=== PATIENT | male | born 2005 | race Caucasian/White ===

== ENCOUNTER 2024-02-07 13:53 | Emergency (ER) | payer OTHER ==
[2024-02-07] MEDS ORDERED: AMOXIC-POT CLAV 875-125MG 1 EACH TAB ONE ×2 (15:15→15:52)
[2024-02-07] MEDS ORDERED: predniSONE 20 MG TAB ONE (15:16)
[2024-02-07] MEDS ORDERED: ACETAMINOPHEN TAB 500 MG TAB ONE (15:52)
[2024-02-07] MEDS ORDERED: IBUPROFEN 600 MG TAB PO ONE (15:53)
== END 2024-02-07 15:58 | disposition home or self-care (01) ==
LOC: EC 13:53
CPT/HCPCS: 99282

== ENCOUNTER 2024-03-12 11:53 | Inpatient (IN) | payer OTHER ==
--- NOTE | 2024-03-12 12:41 | ED ---
General Adult HPI - General Chief complaint: Upper Respiratory Infection Stated complaint: cough,dizziness Time Seen by Provider: 03/12/24 11:57 Source: patient Mode of arrival: ambulatory Limitations: no limitations - History of Present Illness Initial comments: 18 [id number] presents to emergency department with complaint of fever, myalgia and productive cough. Reports that cough started 4 days ago and sputum is green in color, sick contact, diarrhea, and nausea. Denies shortness of breath, chest pain and palpitations, abdominal pain, and emesis. - Related Data Allergies Allergy/AdvReac Type Severity Reaction Status Date / Time No Known Allergies Allergy Verified 03/12/24 11:56 Review of Systems ROS Statement: Those systems with pertinent positive or pertinent negative responses have been documented in the HPI. ROS Other: All systems not noted in ROS Statement are negative. Past Medical History Past Medical History: No Reported History History of Any Multi-Drug Resistant Organisms: None Reported Past Surgical History: No Surgical Hx Reported Smoking Status: Current some day smoker Past Alcohol Use History: Occasional Past Drug Use History: None Reported General Exam Limitations: no limitations General appearance: alert, in no apparent distress Head exam: Present: atraumatic, normocephalic, normal inspection Eye exam: Present: normal appearance, PERRL, EOMI. Absent: scleral icterus, conjunctival injection, periorbital swelling ENT exam: Present: normal exam, mucous membranes moist Neck exam: Present: normal inspection. Absent: tenderness, meningismus, lymphadenopathy Respiratory exam: Present: normal lung sounds bilaterally. Absent: respiratory distress, rales, rhonchi, stridor Expanded Location: Wheezes: Left, Upper Cardiovascular Exam: Present: regular rate, normal rhythm, normal heart sounds. Absent: systolic murmur, diastolic murmur, rubs, gallop, clicks GI/Abdominal exam: Present: soft, normal bowel sounds. Absent: distended, tenderness, guarding, rebound, rigid Extremities exam: Present: normal inspection, full ROM, normal capillary refill. Absent: tenderness, pedal edema, joint swelling, calf tenderness Back exam: Present: normal inspection Neurological exam: Present: alert, oriented X3, CN II-XII intact Psychiatric exam: Present: normal affect, normal mood Skin exam: Present: warm, dry, intact, normal color. Absent: rash Course Vital Signs 03/12/24 03/12/24 03/12/24 11:54 12:16 14:09 Temperature 98.8 F Pulse Rate 95 84 Respiratory 20 16 Rate Blood Pressure 91/61 O2 Sat by Pulse 97 Oximetry 03/12/24 03/12/24 14:18 14:34 Temperature 98.2 F Pulse Rate 88 103 H Respiratory 18 Rate Blood Pressure 121/77 O2 Sat by Pulse 97 Oximetry Medical Decision Making - Medical Decision Making Was pt. sent in by a medical professional or institution (NARDA Abrams, PAPER MAKER, urgent care, hospital, or retirement...) When possible be specific @ -No Did you speak to anyone other than the patient for history (EMS, parent, family, police, friend...)? What history was obtained from this source @ -No Did you review nursing and triage notes (agree or disagree)? Why? @ -I reviewed and agree with nursing and triage notes Were old charts reviewed (outside hosp., previous admission, EMS record, old EKG, old radiological studies, urgent care reports/EKG's, retirement records)? Report findings @ -No old charts were reviewed Differential Diagnosis (chest pain, altered mental status, abdominal pain women, abdominal pain men, vaginal bleeding, weakness, fever, dyspnea, syncope, headache, dizziness, GI bleed, back pain, seizure, CVA, palpatations, mental health, musculoskeletal)? @ -COVID 19, RSV, influenza, pneumonia, acute bronchitis, URI, this list is not all inclusive EKG interpreted by me (3pts min.). @ -None X-rays interpreted by me (1pt min.). @ -Chest x-ray shows diffuse multifocal pneumonia in the left CT interpreted by me (1pt min.). @ -None done U/S interpreted by me (1pt. min.). @ -None done What testing was considered but not performed or refused? (CT, X-rays, U/S, labs)? Why? @ -None What meds were considered but not given or refused? Why? @ -None Did you discuss the management of the patient with other professionals (professionals i.e. NARDA Abrams, PAPER MAKER, lab, RT, psych nurse, social welfare clerk, director embalmer, teacher, intelligence officer, case management manager)? Give summary @ -[facility] for admission Was smoking cessation discussed for >3mins.? @ -No Was critical care preformed (if so, how long)? @ -No Were there social determinants of health that impacted care today? How? (H omelessness, low income, unemployed, alcoholism, drug addiction, transportation, low edu. Level, literacy, decrease access to med. care, senior care, rehab)? @ -No Was there de-escalation of care discussed even if they declined (Discuss DNR or withdrawal of care, Hospice)? DNR status @ -No What co-morbidities impacted this encounter? (DM, HTN, Smoking, COPD, CAD, Cancer, CVA, ARF, Chemo, Hep., AIDS, mental health diagnosis, sleep apnea, morbid obesity)? @ -None Was patient admitted / discharged? Hospital course, mention meds given and route, prescriptions, significant lab abnormalities, going to OR and other pertinent info. @ -Admit the patient is running out of diffuse pneumonic changes of the left lung with notable hyponatremia patient will be started on maintenance fluids, pulmonary evaluation, antibiotics IV Undiagnosed new problem with uncertain prognosis? @ -No Drug Therapy requiring intensive monitoring for toxicity (Heparin, Nitro, Insulin, Cardizem)? @ -No Were any procedures done? @ -No Diagnosis/symptom? @ -Pneumonia, hyponatremia Acute, or Chronic, or Acute on Chronic? @ -Acute Uncomplicated (without systemic symptoms) or Complicated (systemic symptoms)? @ -Complicated Side effects of treatment? @ -No Exacerbation, Progression, or Severe Exacerbation? @ -No Poses a threat to life or bodily function? How? (Chest pain, [place], [place], pneumonia, PE, COPD, DKA, ARF, appy, cholecystitis, CVA, Diverticulitis, Homicidal, Suicidal, threat to staff... and all critical care pts) @ -Yes respiratory failure - Lab Data Result diagrams: 03/12/24 14:08 03/12/24 14:08 Lab Results 03/12/24 03/12/24 03/12/24 Range/Units 12:30 14:08 14:08 WBC 14.9 H (4.0-11.0) k/uL RBC 4.88 (4.30-5.90) m/uL Hgb 14.3 (13.0-17.5) gm/dL Hct 41.1 (39.0-53.0) % MCV 84.1 (80.0-100.0) fL MCH 29.3 (25.0-35.0) pg MCHC 34.9 (31.0-37.0) g/dL RDW 12.7 (11.5-15.5) % Plt Count 245 (150-450) k/uL MPV 8.3 Neutrophils % 86 % Lymphocytes % 7 % Monocytes % 5 % Eosinophils % 1 % Basophils % 0 % Neutrophils # 12.8 H (1.3-7.7) k/uL Lymphocytes # 1.0 (1.0-4.8) k/uL Monocytes # 0.8 (0-1.0) k/uL Eosinophils # 0.1 (0-0.7) k/uL Basophils # 0.0 (0-0.2) k/uL Sodium 127 L (137-145) mmol/L Potassium 4.0 (3.5-5.1) mmol/L Chloride 94 L (98-107) mmol/L Carbon Dioxide 25 (22-30) mmol/L Anion Gap 8 mmol/L BUN 15 (9-20) mg/dL Creatinine 0.64 L (0.66-1.25) mg/dL Est GFR (CKD-EPI)AfAm >90 (>60 ml/min/1.73 sqM) Est GFR (CKD-EPI)NonAf >90 (>60 ml/min/1.73 sqM) Glucose 107 H (74-99) mg/dL Plasma Lactic Acid Benjy (0.7-2.0) mmol/L Calcium 8.3 L (8.4-10.2) mg/dL Total Bilirubin 1.0 (0.2-1.3) mg/dL AST 53 (17-59) U/L ALT 25 (4-49) U/L Alkaline Phosphatase 72 (38-126) U/L Total Protein 6.1 L (6.3-8.2) g/dL Albumin 3.2 L (3.5-5.0) g/dL Influenza Type A (PCR) Not Detected (Not Detectd) Influenza Type B (PCR) Not Detected (Not Detectd) RSV (PCR) Not Detected (Not Detectd) SARS-CoV-2 (PCR) Not Detected (Not Detectd) 03/12/24 Range/Units 14:08 WBC (4.0-11.0) k/uL RBC (4.30-5.90) m/uL Hgb (13.0-17.5) gm/dL Hct (39.0-53.0) % MCV (80.0-100.0) fL MCH (25.0-35.0) pg MCHC (31.0-37.0) g/dL RDW (11.5-15.5) % Plt Count (150-450) k/uL MPV Neutrophils % % Lymphocytes % % Monocytes % % Eosinophils % % Basophils % % Neutrophils # (1.3-7.7) k/uL Lymphocytes # (1.0-4.8) k/uL Monocytes # (0-1.0) k/uL Eosinophils # (0-0.7) k/uL Basophils # (0-0.2) k/uL Sodium (137-145) mmol/L Potassium (3.5-5.1) mmol/L Chloride (98-107) mmol/L Carbon Dioxide (22-30) mmol/L Anion Gap mmol/L BUN (9-20) mg/dL Creatinine (0.66-1.25) mg/dL Est GFR (CKD-EPI)AfAm (>60 ml/min/1.73 sqM) Est GFR (CKD-EPI)NonAf (>60 ml/min/1.73 sqM) Glucose (74-99) mg/dL Plasma Lactic Acid Benjy 1.0 (0.7-2.0) mmol/L Calcium (8.4-10.2) mg/dL Total Bilirubin (0.2-1.3) mg/dL AST (17-59) U/L ALT (4-49) U/L Alkaline Phosphatase (38-126) U/L Total Protein (6.3-8.2) g/dL Albumin (3.5-5.0) g/dL Influenza Type A (PCR) (Not Detectd) Influenza Type B (PCR) (Not Detectd) RSV (PCR) (Not Detectd) SARS-CoV-2 (PCR) (Not Detectd) Disposition Clinical Impression: Multifocal pneumonia, Hyponatremia Disposition: ADMITTED IP TO THIS HOSP Condition: Fair Is patient prescribed a controlled substance at d/c from ED?: No Referrals: None,Stated [Primary Care Provider] - 1-2 days Time of Disposition: 15:08
--- NOTE | 2024-03-12 13:49 | XR ---
EXAMINATION TYPE: XR chest 2V DATE OF EXAM: 03/12/2024 COMPARISON: NONE HISTORY: Shortness of breath TECHNIQUE: Frontal and lateral views of the chest are obtained. FINDINGS: Airspace consolidation left upper lobe and left lower lobe compatible with pneumonia. The right lung appears clear at this time. No evidence for pneumothorax. No pleural effusion. The cardiac silhouette size is within normal limits. The osseous structures are grossly intact. IMPRESSION: 1. Airspace consolidation left upper lobe and left lower lobe compatible with pneumonia. The right l varinder appears clear at this time.
[2024-03-12] MEDS: IPRATROPIUM-ALBUTEROL 3 ML NEB INHALATION STA (14:09)
[2024-03-12] MEDS: SODIUM CHLORIDE 0.9% 1,000 ML IV ONE (14:17)
[2024-03-12 14:32] LABS: Basophils % (A) 0 %; Eosinophils # (A) 0.1 k/uL (0-0.7); Eosinophils % (A) 1 %; HCT 41.1 % (39.0-53.0); HGB 14.3 gm/dL (13.0-17.5); Lymphocytes % (A) 7 %; MCH 29.3 pg (25.0-35.0); MCHC 34.9 g/dL (31.0-37.0); MCV 84.1 fL (80.0-100.0); Mean Platelet Volume 8.3; Monocytes # (A) 0.8 k/uL (0-1.0); Monocytes % (A) 5 %; Neutrophils # (A) 12.8 k/uL (1.3-7.7); Neutrophils % (A) 86 %; Platelet Count 245 k/uL (150-450); RBC 4.88 m/uL (4.30-5.90); RDW 12.7 % (11.5-15.5); WBC 14.9 k/uL (4.0-11.0)
[2024-03-12 14:36] VITALS: BP 121/77; PULSE 103; RESP 18; TEMP 98.2
[2024-03-12 14:45] LABS: ALT 25 U/L (4-49); AST 53 U/L (17-59); African American GFR (CKD) >90 (>60 ml/min/1.73 sqM); Albumin 3.2 g/dL (3.5-5.0); Alkaline Phosphatase 72 U/L (38-126); Anion Gap 8 mmol/L; Blood Urea Nitrogen 15 mg/dL (9-20); Calcium 8.3 mg/dL (8.4-10.2); Carbon Dioxide 25 mmol/L (22-30); Chloride 94 mmol/L (98-107); Glucose 107 mg/dL (74-99); Non-African American GFR(CKD) >90 (>60 ml/min/1.73 sqM); Sodium 127 mmol/L (137-145); Total Protein 6.1 g/dL (6.3-8.2)
[2024-03-12] MEDS ORDERED: IPRATROPIUM-ALBUTEROL 3 ML NEB INHALATION PRN (15:09)
[2024-03-12] MEDS ORDERED: AZITHROMYCIN 500 MG in SODIUM CHLORIDE 0.9% 250 ML IVPB STA (15:09)
[2024-03-12] MEDS ORDERED: PNEUMONIA PROTOCOL UTILIZED 1 EACH MISC PO PRN (15:09)
[2024-03-12] MEDS ORDERED: SODIUM CHLORIDE 0.9% 1,000 ML IV SCH (15:15)
[2024-03-13] MEDS ORDERED: AZITHROMYCIN 500 MG in SODIUM CHLORIDE 0.9% 250 ML IVPB SCH (16:00)
== END 2024-03-12 15:50 | disposition left against medical advice (07) | DRG 139 ==
LOC: EC 11:53 → 4SSUR 15:38
PROVIDERS: ADMIT Internal Medicine; ATTEND Internal Medicine
DX: J18.9 Pneumonia, unspecified organism (principal); E87.1 Hypo-osmolality and hyponatremia; F17.210 Nicotine dependence, cigarettes, uncomplicated
CPT/HCPCS: 36415; 71046; 80053; 83605; 85025; 87040; 87636; 94640; 99285

== ENCOUNTER 2024-03-13 11:20 | Inpatient (IN) | payer OTHER ==
[2024-03-13 12:03] LABS: Basophils % (A) 0 %; Eosinophils # (A) 0.1 k/uL (0-0.7); Eosinophils % (A) 1 %; HCT 38.5 % (39.0-53.0); HGB 13.2 gm/dL (13.0-17.5); Lymphocytes % (A) 7 %; MCH 29.4 pg (25.0-35.0); MCHC 34.3 g/dL (31.0-37.0); MCV 85.7 fL (80.0-100.0); Monocytes # (A) 0.9 k/uL (0-1.0); Monocytes % (A) 7 %; Neutrophils # (A) 11.3 k/uL (1.3-7.7); Neutrophils % (A) 83 %; Platelet Count 301 k/uL (150-450); RBC 4.49 m/uL (4.30-5.90); RDW 12.7 % (11.5-15.5); WBC 13.6 k/uL (4.0-11.0)
[2024-03-13 12:13] LABS: ALT 25 U/L (4-49); AST 58 U/L (17-59); African American GFR (CKD) >90 (>60 ml/min/1.73 sqM); Albumin 3.1 g/dL (3.5-5.0); Alkaline Phosphatase 82 U/L (38-126); Anion Gap 11 mmol/L; Blood Urea Nitrogen 13 mg/dL (9-20); Calcium 8.1 mg/dL (8.4-10.2); Carbon Dioxide 24 mmol/L (22-30); Chloride 88 mmol/L (98-107); Glucose 102 mg/dL (74-99); Magnesium 2.2 mg/dL (1.6-2.3); Non-African American GFR(CKD) >90 (>60 ml/min/1.73 sqM); Sodium 123 mmol/L (137-145); Total Bilirubin 1.2 mg/dL (0.2-1.3); Total Protein 5.9 g/dL (6.3-8.2)
--- NOTE | 2024-03-13 12:18 | XR ---
EXAMINATION TYPE: XR chest 2V DATE OF EXAM: 03/13/2024 COMPARISON: 03/12/2024 HISTORY: Follow-up pneumonia TECHNIQUE: Frontal and lateral views of the chest are obtained. FINDINGS: Persistent left perihilar left lower lobe airspace infiltrate with small effusion. The right lung is clear. Overall stable appearance. No evidence for pneumothorax. No pleural effusion. The cardiac silhouette size is within normal limits. The osseous structures are grossly intact. IMPRESSION: 1. Persistent left perihilar and left lower lobe airspace infiltrate with small effusion. The right lung is clear. Overall stable appearance.
--- NOTE | 2024-03-13 12:35 | ED ---
General Adult HPI - General Chief complaint: Shortness of Breath Stated complaint: Recheck-STALIN Time Seen by Provider: 03/13/24 11:25 Source: patient, RN notes reviewed, old records reviewed Mode of arrival: ambulatory Limitations: no limitations - History of Present Illness Initial comments: 18 year old male returns to the ED today with complaints of worsening shortness of breath. Was seen yesterday in the ED with plans to admit for pneumonia when he left AMA. Today, he complains of worsening shortness of breath, fever, productive cough, malaise, and left lower rib cage pain. Denies chest pain, syncope, and headache. - Related Data Allergies Allergy/AdvReac Type Severity Reaction Status Date / Time No Known Allergies Allergy Verified 03/12/24 11:56 Review of Systems ROS Statement: Those systems with pertinent positive or pertinent negative responses have been documented in the HPI. ROS Other: All systems not noted in ROS Statement are negative. Past Medical History Past Medical History: No Reported History Additional Past Medical History / Comment(s): pneumonia History of Any Multi-Drug Resistant Organisms: None Reported Past Surgical History: No Surgical Hx Reported Smoking Status: Current some day smoker Past Alcohol Use History: Occasional Past Drug Use History: None Reported General Exam Limitations: no limitations General appearance: alert, in no apparent distress Head exam: Present: atraumatic, normocephalic, normal inspection Eye exam: Present: normal appearance, PERRL, EOMI. Absent: scleral icterus, conjunctival injection, periorbital swelling ENT exam: Present: normal exam, mucous membranes moist Neck exam: Present: normal inspection. Absent: tenderness, meningismus, lymphadenopathy Respiratory exam: Present: normal lung sounds bilaterally, wheezes, rhonchi. Absent: respiratory distress, rales, stridor Expanded Location: Wheezes: Left, Upper, Rhonchi: Left, Upper, Lower Cardiovascular Exam: Present: normal rhythm, tachycardia, normal heart sounds. Absent: systolic murmur, diastolic murmur, rubs, gallop, clicks GI/Abdominal exam: Present: soft, normal bowel sounds. Absent: distended, tenderness, guarding, rebound, rigid Extremities exam: Present: normal inspection, full ROM, normal capillary refill. Absent: tenderness, pedal edema, joint swelling, calf tenderness Back exam: Present: normal inspection Neurological exam: Present: alert, oriented X3, CN II-XII intact Psychiatric exam: Present: normal affect, normal mood Skin exam: Present: warm, dry, intact, normal color. Absent: rash Course Vital Signs 03/13/24 11:22 Temperature 99.8 F H Pulse Rate 120 H Respiratory 20 Rate Blood Pressure 114/70 O2 Sat by Pulse 94 L Oximetry Medical Decision Making - Medical Decision Making Was pt. sent in by a medical professional or institution (, NARDA, INSTRUCTOR BALLROOM DANCING, urgent care, hospital, or skilled nursing...) When possible be specific @ -No Did you speak to anyone other than the patient for history (EMS, parent, family, police, friend...)? What history was obtained from this source @ -No Did you review nursing and triage notes (agree or disagree)? Why? @ -I reviewed and agree with nursing and triage notes Were old charts reviewed (outside hosp., previous admission, EMS record, old EK G, old radiological studies, urgent care reports/EKG's, skilled nursing records)? Report findings @ -Reviewed CBC CMP chest x-ray from 03/12/2024 Differential Diagnosis (chest pain, altered mental status, abdominal pain women, abdominal pain men, vaginal bleeding, weakness, fever, dyspnea, syncope, hea dache, dizziness, GI bleed, back pain, seizure, CVA, palpatations, mental health, musculoskeletal)? @ -COVID 19, RSV, influenza, pneumonia, acute bronchitis, URI, this list is not all inclusive EKG interpreted by me (3pts min.). @ -None X-rays interpreted by me (1pt min.). @ -Chest x-ray shows diffuse pneumonia of the left lung CT interpreted by me (1pt min.). @ -None done U/S interpreted by me (1pt. min.). @ -None done What testing was considered but not performed or refused? (CT, X-rays, U/S, labs)? Why? @ -None What meds were considered but not given or refused? Why? @ -None Did you discuss the management of the patient with other professionals (professionals i.e. NARDA Abrams, INSTRUCTOR BALLROOM DANCING, lab, RT, psych nurse, nursing home social worker, hospitalist physician, teacher, botanical technical officer, residential case manager)? Give summary @ -Dr. Soto for admission Was smoking cessation discussed for >3mins.? @ -No Was critical care preformed (if so, how long)? @ -No Were there social determinants of health that impacted care today? How? (Homelessness, low income, unemployed, alcoholism, drug addiction, transportation, low edu. Level, literacy, decrease access to med. care, long term, rehab)? @ -No Was there de-escalation of care discussed even if they declined (Discuss DNR or withdrawal of care, Hospice)? DNR status @ -No What co-morbidities impacted this encounter? (DM, HTN, Smoking, COPD, CAD, Cancer, CVA, ARF, Chemo, Hep., AIDS, mental health diagnosis, sleep apnea, morbid obesity)? @ -Smoking history Was patient admitted / discharged? Hospital course, mention meds given and route, prescriptions, significant lab abnormalities, going to OR and other pertinent info. @ -Admitted patient's found to have significant pneumonia, hyponatremia patient was started on maintenance fluids, broad-spectrum antibiotics with consults to pulmonary. Undiagnosed new problem with uncertain prognosis? @ -No Drug Therapy requiring intensive monitoring for toxicity (Heparin, Nitro, Insulin, Cardizem)? @ -No Were any procedures done? @ -No Diagnosis/symptom? @ -Pneumonia, hyponatremia Acute, or Chronic, or Acute on Chronic? @ -Acute Uncomplicated (without systemic symptoms) or Complicated (systemic symptoms)? @ -Complicated Side effects of treatment? @ -No Exacerbation, Progression, or Severe Exacerbation? @ -No Poses a threat to life or bodily function? How? (Chest pain, [place], [place], pneumonia, PE, COPD, DKA, ARF, appy, cholecystitis, CVA, Diverticulitis, Homicidal, Suicidal, threat to staff... and all critical care pts) @ -Yes pneumonia with respiratory failure - Lab Data Result diagrams: 03/13/24 11:50 03/13/24 11:50 Lab Results 03/13/24 03/13/24 03/13/24 Range/Units 11:50 11:50 11:50 WBC 13.6 H (4.0-11.0) k/uL RBC 4.49 (4.30-5.90) m/uL Hgb 13.2 (13.0-17.5) gm/dL Hct 38.5 L (39.0-53.0) % MCV 85.7 (80.0-100.0) fL MCH 29.4 (25.0-35.0) pg MCHC 34.3 (31.0-37.0) g/dL RDW 12.7 (11.5-15.5) % Plt Count 301 (150-450) k/uL MPV 7.0 Neutrophils % 83 % Lymphocytes % 7 % Monocytes % 7 % Eosinophils % 1 % Basophils % 0 % Neutrophils # 11.3 H (1.3-7.7) k/uL Lymphocytes # 1.0 (1.0-4.8) k/uL Monocytes # 0.9 (0-1.0) k/uL Eosinophils # 0.1 (0-0.7) k/uL Basophils # 0.0 (0-0.2) k/uL Sodium 123 L (137-145) mmol/L Potassium 4.0 (3.5-5.1) mmol/L Chloride 88 L (98-107) mmol/L Carbon Dioxide 24 (22-30) mmol/L Anion Gap 11 mmol/L BUN 13 (9-20) mg/dL Creatinine 0.66 (0.66-1.25) mg/dL Est GFR (CKD-EPI)AfAm >90 (>60 ml/min/1.73 sqM) Est GFR (CKD-EPI)NonAf >90 (>60 ml/min/1.73 sqM) Glucose 102 H (74-99) mg/dL Plasma Lactic Acid Benjy 1.1 (0.7-2.0) mmol/L Calcium 8.1 L (8.4-10.2) mg/dL Magnesium 2.2 (1.6-2.3) mg/dL Total Bilirubin 1.2 (0.2-1.3) mg/dL AST 58 (17-59) U/L ALT 25 (4-49) U/L Alkaline Phosphatase 82 (38-126) U/L Total Protein 5.9 L (6.3-8.2) g/dL Albumin 3.1 L (3.5-5.0) g/dL Disposition Clinical Impression: Multifocal pneumonia, Hyponatremia Disposition: ADMITTED IP TO THIS [facility] Condition: Serious Referrals: None,Stated [Primary Care Provider] - 1-2 days Time of Disposition: 13:30
[2024-03-13] MEDS ORDERED: PNEUMONIA PROTOCOL UTILIZED 1 EACH MISC PO PRN (13:25)
[2024-03-13] MEDS: IPRATROPIUM-ALBUTEROL 3 ML NEB INHALATION STA (15:38)
[2024-03-13] MEDS: SODIUM CHLORIDE 0.9% 1,000 ML IV SCH (15:51)
[2024-03-13] MEDS: ACETAMINOPHEN TAB 325 MG TAB PO STA (15:51)
[2024-03-13] MEDS: SODIUM CHLORIDE 0.9% 1,000 ML IV STA (15:51)
[2024-03-13] MEDS: SODIUM CHLORIDE 0.9% 1,000 ML IV ONE (15:53)
[2024-03-13] MEDS: AZITHROMYCIN 500 MG in SODIUM CHLORIDE 0.9% 250 ML IVPB STA (15:53)
[2024-03-13] MEDS: KETOROLAC 15 MG/ML 1 ML VIAL IVP STA (16:03)
--- NOTE | 2024-03-13 22:39 | P.CONS ---
History of Present Illness - Reason for Consult Consult date: 03/13/24 Pneumonia Requesting physician: Paulino Suarez - Chief Complaint Shortness of breath and cough x days - History of Present Illness Patient is a 18-year-old male current everyday smoker and previous history of pneumonia presenting to the hospital for evaluation of increasing shortness of breath apparently the patient symptoms started on Saturday that is about 5 days before presentation the hospital and has been mostly shortness of breath on minimal exertion the patient also have a cough that has been moderate intensity and is bringing up some greenish-fletcher sputum did have blood x 1 patient also complaining of pain to the left lower chest area describing it to be sharp moderate intensity and worse with taking a deep breath also complaining of fever apparently the patient was evaluated for similar symptoms in the ER yesterday however the patient left AGAINST MEDICAL ADVICE and now presenting back to the hospital with persistent and worsening symptoms on presentation to the hospital he did have a low-grade fever of 99.8 degrees following right patient was tachycardic but not hypotensive mildly hypoxic but no need for supplemental oxygen he did have white count of 13.6 with a left shift creatinine 0.66 liver isms are normal patient did have a chest x-ray persistent left perihilar and left lower lobe airspace infiltrate with small effusion patient h as been started on Rocephin and Zithromax infectious disease was consulted for further management of antibiotic therapy Review of Systems Positive point and negatives has been mentioned in the HPI, complete review of systems was performed and all other systems are negative Past Medical History Past Medical History: No Reported History Additional Past Medical History / Comment(s): pneumonia History of Any Multi-Drug Resistant Organisms: None Reported Past Surgical History: No Surgical Hx Reported Smoking Status: Current some day smoker Past Alcohol Use History: Occasional Past Drug Use History: None Reported Medications and Allergies Home Medications Medication Instructions Recorded Confirmed Type No Known Home Medications 03/13/24 03/13/24 History Allergies Allergy/AdvReac Type Severity Reaction Status Date / Time No Known Allergies Allergy Verified 03/13/24 15:52 Physical Exam Vitals: Vital Signs Temp Pulse Resp BP Pulse Ox 03/13/24 11:22 99.8 F H 120 H 20 114/70 94 L Intake and Output 03/12/24 03/13/24 03/13/24 22:59 06:59 14:59 Other: Weight 65.771 kg GENERAL DESCRIPTION: Young male lying in bed, no distress. No tachypnea or accessory muscle of respiration use. HEENT: Shows Pallor , no scleral icterus. Oral mucous membrane is dry. No pharyngeal erythema or thrush NECK: Trachea central, no thyromegaly. LUNGS: Unlabored breathing. Coarse breath sound the base HEART: S1, S2, regular rate and rhythm. No loud murmur ABDOMEN: Soft, no tenderness , guarding or rigidity, no organomegaly EXTREMITIES: No edema of feet. SKIN: No rash, no masses palpable. NEUROLOGICAL: The patient is awake, alert, oriented x3, mood and affect normal. Results CBC & Chem 7: 03/13/24 11:50 03/13/24 11:50 Labs: Abnormal Lab Results - Last 24 Hours (Table) 03/13/24 03/13/24 Range/Units 11:50 11:50 WBC 13.6 H (4.0-11.0) k/uL Hct 38.5 L (39.0-53.0) % Neutrophils # 11.3 H (1.3-7.7) k/uL Sodium 123 L (137-145) mmol/L Chloride 88 L (98-107) mmol/L Glucose 102 H (74-99) mg/dL Calcium 8.1 L (8.4-10.2) mg/dL Total Protein 5.9 L (6.3-8.2) g/dL Albumin 3.1 L (3.5-5.0) g/dL Assessment and Plan (1) Sepsis Current Visit: Yes Status: Acute Code(s): A41.9 - SEPSIS, UNSPECIFIED ORGANISM SNOMED Code(s): 33049832 (2) Pneumonia Current Visit: Yes Status: Acute Code(s): J18.9 - PNEUMONIA, UNSPECIFIED ORGANISM SNOMED Code(s): 773675547 Plan: 1patient presented hospital with sepsis in this patient who did have fever tachycardia elevated white count source is left-sided pneumonia likely community-acquired patient did have significant diarrhea as well with a question of possible Legionella. 2we will check urine for Legionella antigen sputum for Gram stain culture and follow-up on the blood cultures already obtained. 3we will treat the patient with Rocephin 2 g daily and azithromycin while waiting for the workup to be completed. We will follow on clinical condition and cultures to further adjust medication if needed Thank you for this consultation we will follow the patient along with you Dictation was produced using [employer] dictation software. please excuse any grammatical, word or spelling errors. Time with Patient: Greater than 30
[2024-03-14] MEDS: ACETAMINOPHEN TAB 325 MG TAB PO PRN (02:44)
[2024-03-14] MEDS: guaiFENesin-DM 100-10MG/5ML 10 ML CUP PO PRN (02:49)
[2024-03-14] MEDS ORDERED: RX INFO: IV CONTRAST WAS GIVEN 1 EACH MISC MISCELLANE PRN (07:27)
--- NOTE | 2024-03-14 07:35 | XR ---
EXAMINATION TYPE: XR chest 2V DATE OF EXAM: 03/14/2024 7:08 AM CLINICAL INDICATION: Male, 18 years old with history of pneumonia; COMPARISON: Chest radiographs from 03/13/2024 TECHNIQUE: XR chest 2V Frontal view of the chest. FINDINGS: Lungs/Pleura: Left perihilar and lower lobe airspace opacities compatible There is no evidence of ple ural effusion or pneumothorax. Pulmonary vascularity: Unremarkable. Heart/mediastinum: Cardiomediastinal silhouette is unremarkable. Musculoskeletal: No acute osseous pathology. IMPRESSION: Left perihilar and lower lobe airspace opacities compatible with pneumonia.
--- NOTE | 2024-03-14 08:43 | CT ---
EXAMINATION TYPE: CT chest angio for PE CT DLP: 157.5 mGycm, Automated exposure control for dose reduction was used. DATE OF EXAM: 03/14/2024 8:12 AM COMPARISON: Chest radiograph same day CLINICAL INDICATION: Male, 18 years old with history of PULMONARY EMBOLUS; SOB TECHNIQUE/CONTRAST: CTA scan of the thorax is performed with IV Contrast, patient injected with 100 mL of Isovue 370, MIP images are created and reviewed these are created on a separate workstation.. FINDINGS: Pulmonary Artery: There is no evidence for a filling defect within the pulmonary vasculature to sugge st acute pulmonary embolism. The pulmonary artery is of normal size. Lungs/Pleura: Multifocal airspace opacities within the left lower lung and to a lesser extent the lef t upper lung and minimally within the right lower lobe. No evidence of pleural effusion or pneumotho rax. Airway: Large airways are patent. Heart: Heart is within normal limits for size. Vasculature: No evidence of aortic aneurysm. Mediastinum: No gross evidence of adenopathy. Musculoskeletal: No acute osseous abnormalities Soft Tissues/lymph nodes: Unremarkable. Lower neck: No significant findings. Upper Abdomen: No significant findings. IMPRESSION: 1. No evidence of pulmonary embolism. 2. Multifocal pneumonia
[2024-03-14] MEDS: AZITHROMYCIN 500 MG in SODIUM CHLORIDE 0.9% 250 ML IVPB SCH (09:57)
[2024-03-14 10:37] LABS: BUN/Creat Ratio 18.67 Ratio (12.00-20.00); Blood Urea Nitrogen 11.2 mg/dL (9.0-27.0); Calcium 7.3 mg/dL (8.7-10.3); Carbon Dioxide 23.3 mmol/L (21.6-31.8); Chloride 94 mmol/L (96-109); Glucose 119 mg/dL (70-110); Potassium 3.8 mmol/L (3.5-5.5); Sodium 127 mmol/L (135-145)
[2024-03-14 10:42] LABS: Basophils # (A) 0.03 X 10*3/uL (0.00-0.10); Basophils % (A) 0.2 %; Eosinophils # (A) 0.24 X 10*3/uL (0.04-0.35); Eosinophils % (A) 1.9 %; HCT 32.5 % (39.6-50.0); HGB 11.5 g/dL (13.0-17.0); Lymphocytes # (A) 1.41 X 10*3/uL (0.90-5.00); Lymphocytes % (A) 11.4 %; MCH 29.3 pg (27.0-32.0); MCHC 35.4 g/dL (32.0-37.0); MCV 82.9 FL (80.0-97.0); Mean Platelet Volume 11.2 FL (9.5-12.2); Monocytes # (A) 1.18 X 10*3/uL (0.20-1.00); Monocytes % (A) 9.5 %; NRBC Per 100 WBC 0 X 10*3/uL (0.00-0.01); Neutrophils # (A) 9.37 X 10*3/uL (1.80-7.70); Neutrophils % (A) 75.9 %; Platelet Count 226 X 10*3/uL (140-440); RBC 3.92 X 10*6/uL (4.40-5.60); RDW 12.5 % (11.5-14.5); WBC 12.37 X 10*3/uL (4.50-10.00)
[2024-03-14 10:43] LABS: RBC Morphology Normal (Normal)
--- NOTE | 2024-03-14 11:11 | P.CNPUL ---
History of Present Illness Consult date: 03/14/24 Requesting physician: Conrado Soto Reason for consult: dyspnea, chest pain, pneumonia, abnormal CXR/CT Chief complaint: Left-sided chest wall pain, shortness of breath History of present illness: This is a very pleasant 18-year-old male patient with no significant past medical history, no home medications. He does utilize marijuana. He was here in our emergency room on January 10 2024 with complaints of nausea, vomiting and diarrhea along with shortness of breath and left-sided chest pain. He was found to have multi lobar pneumonia however the patient chose to leave AGAINST MEDICAL ADVICE from the emergency room without any medications. He states he is and prefers natural and herbal remedies versus traditional medications. However he returned to the emergency room again yesterday with worsening left- sided chest pain and shortness of breath. Chest x-ray continues to show left perihilar and lower lobe airspace opacities. No pneumothorax. Agreed to be admitted and is seen today in consultation on the regular medical floor. He is currently awake and alert in no acute distress. He is maintaining good O2 saturations in the 90s on room air. He is afebrile. Hemodynamically stable. He did have a Tmax of 103. White count 12.3. Hemoglobin 11.5. Platelets 226. Sodium 127. Potassium 3.8. Bicarb 23. BUN 11. Creatinine 0.6. Glucose 119. Legionella screen was negative. C. difficile screen was negative. Viral screen was negative. C. difficile screen was negative. D-dimer 5.07. CT angiogram revealed no evidence of pulmonary embolism. There is ongoing multifocal airspace opacities in the bilateral lower lobes and the left perihilar region. He has been initiated on ceftriaxone and azithromycin. Normal saline at 75 mL/h. Review of Systems REVIEW OF SYSTEMS: CONSTITUTIONAL: Denies any recent significant weight loss or weight gain. EYES: Denies change in vision. EARS, NOSE, MOUTH, THROAT: Denies headaches, denies sore throat. CARDIOVASCULAR: Positive for left-sided chest pain, no palpitations or syncopal episodes. RESPIRATORY: Positive for shortness of breath, cough, congestion no hemoptysis. GASTROINTESTINAL: Denies change in appetite, denies abdominal pain GENITOURINARY: Denies hematuria, denies infections. MUSKULOSKELETAL: Denies pain, denies swelling. INTEGUMENTARY: Denies rash, denies eczema. NEUROLOGICAL: Denies recent memory loss, no recent seizure activity. PSYCHIATRIC: Denies anxiety, denies depression. HEMATOLOGIC/LYMPHATIC: Denies anemia, denies enlarged lymph nodes. Past Medical History Past Medical History: No Reported History Additional Past Medical History / Comment(s): pneumonia History of Any Multi-Drug Resistant Organisms: None Reported Past Surgical History: No Surgical Hx Reported Smoking Status: Current some day smoker Past Alcohol Use History: Occasional Past Drug Use History: None Reported Medications and Allergies Home Medications Medication Instructions Recorded Confirmed Type No Known Home Medications 03/13/24 03/13/24 History Allergies Allergy/AdvReac Type Severity Reaction Status Date / Time No Known Allergies Allergy Verified 03/13/24 15:52 Physical Exam Vitals: Vital Signs Temp Pulse Pulse Resp BP BP Pulse Ox 03/14/24 07:33 99.1 F 95 18 116/68 94 L 03/14/24 05:49 96 03/14/24 04:08 100.7 F H 03/14/24 01:46 103.0 F H 113 H 14 113/64 96 03/13/24 23:23 99.3 F 03/13/24 21:00 96 03/13/24 20:39 96.8 F L 91 14 106/66 98 03/13/24 20:00 20 03/13/24 19:58 98.2 F 86 16 104/65 96 03/13/24 17:00 80 16 102/68 97 03/13/24 15:48 99.4 F 100 18 109/70 94 L 03/13/24 15:43 94 L 03/13/24 15:39 101 H 03/13/24 11:22 99.8 F H 120 H 20 114/70 94 L Intake and Output 03/13/24 03/14/24 03/14/24 22:59 06:59 14:59 Intake Total 260 Balance 260 Intake: Oral 260 Other: Weight 65.771 kg GENERAL EXAM: Alert, very pleasant, thin 18-year-old male, on room air, fairly comfortable in no apparent distress. HEAD: Normocephalic. EYES: Normal reaction of pupils, equal size. NOSE: Clear with pink turbinates. THROAT: No erythema or exudates. NECK: No masses, no JVD. CHEST: No chest wall deformity. LUNGS: Equal air entry with coarse rhonchi left greater than right. CVS: S1 and S2 normal with no audible murmur, regular rhythm. ABDOMEN: No hepatosplenomegaly, normal bowel sounds, no guarding or rigidity. SPINE: No scoliosis or deformity SKIN: No rashes CENTRAL NERVOUS SYSTEM: No focal deficits, tone is normal in all 4 extremities. EXTREMITIES: There is no peripheral edema. No clubbing, no cyanosis. Peripheral pulses are intact. Results - Laboratory Findings CBC and BMP: 03/14/24 03:09 03/14/24 03:09 PT/INR, D-dimer D-Dimer 5.07 mg/L FEU (<0.60) H 03/14/24 09:40 Abnormal lab findings: Abnormal Labs 03/13/24 03/13/24 03/14/24 11:50 11:50 03:09 WBC 13.6 H 12.37 H RBC 3.92 L Hgb 11.5 L Hct 38.5 L 32.5 L Immature Gran # 0.14 H Neutrophils # 11.3 H 9.37 H Monocytes # 1.18 H D-Dimer Sodium 123 L Chloride 88 L Glucose 102 H Calcium 8.1 L Total Protein 5.9 L Albumin 3.1 L 03/14/24 03/14/24 03:09 09:40 WBC RBC Hgb Hct Immature Gran # Neutrophils # Monocytes # D-Dimer 5.07 H Sodium 127 L Chloride 94 L Glucose 119 H Calcium 7.3 L Total Protein Albumin - Diagnostic Findings Chest x-ray: image reviewed CT scan - chest: image reviewed Assessment and Plan Assessment: Left-sided chest wall pain secondary to an acute community-acquired multilobar pneumonia. Pulmonary embolism ruled out Febrile illness secondary to above Leukocytosis secondary to above Hyponatremia secondary to diarrhea and dehydration History of marijuana use Plan: The patient was seen and evaluated Chest x-ray, CT angiogram, labs and medications reviewed Currently stable and on room air Continue ceftriaxone and azithromycin Continue saline at 75 mL/h Patient is willing to accept treatment and not leave AGAINST MEDICAL ADVICE again We will continue to follow and make further recommendations based on his clinical status I have personally seen and examined the patient, performed the documentation and the assessment and plan as written. Number of minutes spent on the visit: 20.
--- NOTE | 2024-03-14 14:20 | P.HPIM ---
History of Present Illness H&P Date: 03/13/24 Chief Complaint: Shortness of breath 18 year old male returns to the ED today with complaints of worsening shortness of breath. Was seen yesterday in the ED with plans to admit for pneumonia when he left AMA. Today, he complains of worsening shortness of breath, fever, produ ctive cough, malaise, and left lower rib cage pain. Denies chest pain, syncope, and headache. In the ED patient did have a Tmax of 103. White count 12.3. Hemoglobin 11.5. Platelets 226. Sodium 127. Potassium 3.8. Bicarb 23. BUN 11. Creatinine 0.6. Glucose 119. Legionella screen was negative. C. difficile screen was negative. Viral screen was negative. C. difficile screen was negative. D- dimer 5.07. CT angiogram revealed no evidence of pulmonary embolism. There is ongoing multifocal airspace opacities in the bilateral lower lobes and the left perihilar region. He has been initiated on ceftriaxone and azithromycin. Review of Systems REVIEW OF SYSTEMS: CONSTITUTIONAL: No fever, no malaise, no fatigue. HEENT: No recent visual problems or hearing problems. Denied any sore throat. CARDIOVASCULAR: No chest pain, orthopnea, PND, no palpitations, no syncope. PULMONARY: Complains of shortness of breath and cough, no hemoptysis. GASTROINTESTINAL: No diarrhea, no nausea, no vomiting, no abdominal pain. NEUROLOGICAL: No headaches, no weakness, no numbness. HEMATOLOGICAL: Denies any bleeding or petechiae. GENITOURINARY: Denies any burning micturition, frequency, or urgency. MUSCULOSKELETAL/RHEUMATOLOGICAL: Denies any joint pain, swelling, or any muscle pain. ENDOCRINE: Denies any polyuria or polydipsia. The rest of the 14-point review of systems is negative. Past Medical History Past Medical History: No Reported History Additional Past Medical History / Comment(s): pneumonia History of Any Multi-Drug Resistant Organisms: None Reported Past Surgical History: No Surgical Hx Reported Smoking Status: Current some day smoker Past Alcohol Use History: Occasional Past Drug Use History: None Reported Medications and Allergies Home Medications Medication Instructions Recorded Confirmed Type No Known Home Medications 03/13/24 03/13/24 History Allergies Allergy/AdvReac Type Severity Reaction Status Date / Time No Known Allergies Allergy Verified 03/13/24 15:52 Physical Exam Vitals: Vital Signs Temp Pulse Resp BP Pulse Ox 03/13/24 11:22 99.8 F H 120 H 20 114/70 94 L Intake and Output 03/13/24 03/13/24 03/13/24 06:59 14:59 22:59 Other: Weight 65.771 kg GENERAL EXAM: Alert, very pleasant, thin 18-year-old male, on room air, fairly comfortable in no apparent distress. HEAD: Normocephalic. EYES: Normal reaction of pupils, equal size. NOSE: Clear with pink turbinates. THROAT: No erythema or exudates. NECK: No masses, no JVD. CHEST: No chest wall deformity. LUNGS: Equal air entry with coarse rhonchi left greater than right. CVS: S1 and S2 normal with no audible murmur, regular rhythm. ABDOMEN: No hepatosplenomegaly, normal bowel sounds, no guarding or rigidity. SPINE: No scoliosis or deformity SKIN: No rashes CENTRAL NERVOUS SYSTEM: No focal deficits, tone is normal in all 4 extremities. EXTREMITIES: There is no peripheral edema. No clubbing, no cyanosis. Peripheral pulses are intact. Results CBC & Chem 7: 03/14/24 03:09 03/14/24 03:09 Labs: Abnormal Lab Results - Last 24 Hours (Table) 03/13/24 03/13/24 Range/Units 11:50 11:50 WBC 13.6 H (4.0-11.0) k/uL Hct 38.5 L (39.0-53.0) % Neutrophils # 11.3 H (1.3-7.7) k/uL Sodium 123 L (137-145) mmol/L Chloride 88 L (98-107) mmol/L Glucose 102 H (74-99) mg/dL Calcium 8.1 L (8.4-10.2) mg/dL Total Protein 5.9 L (6.3-8.2) g/dL Albumin 3.1 L (3.5-5.0) g/dL Assessment and Plan Assessment: 1. Acute communication acquired pneumonia; multilobar -Patient has been placed on IV Rocephin and azithromycin; bronchodilator nebulizer treatment -Symptomatic treatment of pneumonia -Blood cultures and sputum cultures ordered; urine Legionella antigen -- We will consult ID and pulmonary service 2. Leukocytosis; likely related to 1; will monitor CBC, CRP and procalcitonin 3. Acute onset diarrhea/dehydration; patient has been placed on IV fluids; we will monitor renal function electrolytes 4. Hyponatremia; normal saline at rate of 100 cc an hour; will monitor electrolytes and adjust fluids 5. Elevated D-dimer; rule out PE; and has CT of the chest completed which is negative for PE 6. History of marijuana use; counseling done DVT prophylaxis; SCDs CODE STATUS; full code
--- NOTE | 2024-03-14 14:21 | P.PN ---
Objective - Vital Signs Vital signs: Vital Signs Temp 99.1 F 03/14/24 07:33 Pulse 95 03/14/24 07:33 Resp 18 03/14/24 07:33 BP 116/68 03/14/24 07:33 Pulse Ox 94 L 03/14/24 07:33 FiO2 Intake & Output 03/13/24 03/14/24 03/14/24 18:59 06:59 18:59 Intake Total 260 Balance 260 Weight 65.771 kg 65.771 kg Intake: Oral 260 - Exam GENERAL EXAM: Alert, very pleasant, thin 18-year-old male, on room air, fairly comfortable in no apparent distress. HEAD: Normocephalic. EYES: Normal reaction of pupils, equal size. THROAT: No erythema or exudates. NECK: No masses, no JVD. LUNGS: Equal air entry with coarse rhonchi left greater than right. CVS: S1 and S2 normal with no audible murmur, regular rhythm. ABDOMEN: No hepatosplenomegaly, normal bowel sounds, no guarding or rigidity. SKIN: No rashes CENTRAL NERVOUS SYSTEM: No focal deficits, tone is normal in all 4 extremities. EXTREMITIES: There is no peripheral edema. No clubbing, no cyanosis. Peripheral pulses are intact. - Labs CBC & Chem 7: 03/14/24 03:09 03/14/24 03:09 Labs: Abnormal Lab Results - Last 24 Hours (Table) 03/13/24 03/13/24 03/14/24 Range/Units 11:50 11:50 09:40 WBC 13.6 H (4.0-11.0) k/uL Hct 38.5 L (39.0-53.0) % Neutrophils # 11.3 H (1.3-7.7) k/uL D-Dimer 5.07 H (<0.60) mg/L FEU Sodium 123 L (137-145) mmol/L Chloride 88 L (98-107) mmol/L Glucose 102 H (74-99) mg/dL Calcium 8.1 L (8.4-10.2) mg/dL Total Protein 5.9 L (6.3-8.2) g/dL Albumin 3.1 L (3.5-5.0) g/dL Microbiology - Last 24 Hours (Table) 03/13/24 15:42 Gram Stain - Preliminary Sputum Assessment and Plan Assessment: 1. Acute communication acquired pneumonia; multilobar -Patient has been placed on IV Rocephin and azithromycin; bronchodilator nebulizer treatment -Symptomatic treatment of pneumonia -Blood cultures and sputum cultures ordered; urine Legionella antigen -- We will consult ID and pulmonary service 2. Leukocytosis; likely related to 1; will monitor CBC, CRP and procalcitonin 3. Acute onset diarrhea/dehydration; patient has been placed on IV fluids; we will monitor renal function electrolytes 4. Hyponatremia; normal saline at rate of 100 cc an hour; will monitor electrolytes and adjust fluids 5. Elevated D-dimer; rule out PE; and has CT of the chest completed which is negative for PE 6. History of marijuana use; counseling done DVT prophylaxis; SCDs CODE STATUS; full code
--- NOTE | 2024-03-14 22:25 | P.PN ---
Subjective Progress Note Date: 03/14/24 Principal diagnosis: Reason for follow-up is pneumonia Patient is a 18-year-old male current everyday smoker and previous history of pneumonia presenting to the hospital for evaluation of increasing shortness of breath patient has been diagnosed sepsis and pneumonia prompted this consultation. On today's evaluation that is 03/14/2024, the patient did have improvement in his fever pattern, the patient is on room air and breathing comfortably, the Pt left-sided chest pain has decreased intensity still having cough but no worsening, the patient denies having any abdominal pain no vomiting or any diarrhea, mention feeling slightly better. Patient white count is down to 12.37 creatinine is 0.6 procalcitonin 0.92 urine for Legionella antigen is negative blood and sputum cultures are pending Objective - Vital Signs Vital signs: Vital Signs Temp 99.8 F H 03/14/24 14:33 Pulse 107 H 03/14/24 12:50 Resp 17 03/14/24 12:50 BP 113/70 03/14/24 12:50 Pulse Ox 93 L 03/14/24 12:50 FiO2 Intake & Output 03/13/24 03/14/24 03/14/24 18:59 06:59 18:59 Intake Total 260 Balance 260 Weight 65.771 kg 65.771 kg Intake: Oral 260 - Exam GENERAL DESCRIPTION: Young male lying in bed in no distress RESPIRATORY SYSTEM: Unlabored breathing , decreased breath sounds at bases HEART: S1 S2 regular rate and rhythm , ABDOMEN: Soft , no tenderness EXTREMITIES: No edema feet - Labs CBC & Chem 7: 03/14/24 03:09 03/14/24 03:09 Labs: Abnormal Lab Results - Last 24 Hours (Table) 03/14/24 03/14/24 03/14/24 Range/Units 03:09 03:09 09:40 WBC 12.37 H (4.50-10.00) X 10*3/uL RBC 3.92 L (4.40-5.60) X 10*6/uL Hgb 11.5 L (13.0-17.0) g/dL Hct 32.5 L (39.6-50.0) % Immature Gran # 0.14 H (0.00-0.04) X 10*3/uL Neutrophils # 9.37 H (1.80-7.70) X 10*3/uL Monocytes # 1.18 H (0.20-1.00) X 10*3/uL D-Dimer 5.07 H (<0.60) mg/L FEU Sodium 127 L (135-145) mmol/L Chloride 94 L (96-109) mmol/L Glucose 119 H (70-110) mg/dL Calcium 7.3 L (8.7-10.3) mg/dL Procalcitonin (0.02-0.50) ng/mL 03/14/24 Range/Units 09:40 WBC (4.50-10.00) X 10*3/uL RBC (4.40-5.60) X 10*6/uL Hgb (13.0-17.0) g/dL Hct (39.6-50.0) % Immature Gran # (0.00-0.04) X 10*3/uL Neutrophils # (1.80-7.70) X 10*3/uL Monocytes # (0.20-1.00) X 10*3/uL D-Dimer (<0.60) mg/L FEU Sodium (135-145) mmol/L Chloride (96-109) mmol/L Glucose (70-110) mg/dL Calcium (8.7-10.3) mg/dL Procalcitonin 0.92 H (0.02-0.50) ng/mL Microbiology - Last 24 Hours (Table) 03/13/24 15:42 Gram Stain - Preliminary Sputum Sputum Culture - Preliminary Assessment and Plan (1) Sepsis Current Visit: Yes Status: Acute Code(s): A41.9 - SEPSIS, UNSPECIFIED ORGANISM SNOMED Code(s): 39433524 (2) Pneumonia Current Visit: Yes Status: Acute Code(s): J18.9 - PNEUMONIA, UNSPECIFIED ORGANISM SNOMED Code(s): 703856113 Plan: 1patient presented hospital with sepsis in this patient who did have fever tachycardia elevated white count source is left-sided pneumonia likely community-acquired patient did have significant diarrhea as well with a question of possible Legionella. 2urine for Legionella antigen came back negative, sputum for Gram stain culture and blood cultures are currently pending 3patient did have a CT angiogram of the chest negative for PE did not show any effusion with evidence of multifocal pneumonia on the left side. 4we will continue patient on Rocephin and Zithromax while waiting for the culture to finalize Dictation was produced using [employer] dictation software. please excuse any grammatical, word or spelling errors. Time with Patient: Less than 30
[2024-03-15 10:22] LABS: BUN/Creat Ratio 7.71 Ratio (12.00-20.00); Blood Urea Nitrogen 5.4 mg/dL (9.0-27.0); Calcium 7.4 mg/dL (8.7-10.3); Carbon Dioxide 22.3 mmol/L (21.6-31.8); Chloride 98 mmol/L (96-109); Glucose 102 mg/dL (70-110); Potassium 3.8 mmol/L (3.5-5.5); Sodium 131 mmol/L (135-145)
--- NOTE | 2024-03-15 11:21 | P.PN ---
Subjective Progress Note Date: 03/15/24 This is a very pleasant 18-year-old male patient with no significant past medical history, no home medications. He does utilize marijuana. He was here in our emergency room on January 10 2024 with complaints of nausea, vomiting and diarrhea along with shortness of breath and left-sided chest pain. He was found to have multi lobar pneumonia however the patient chose to leave AGAINST MEDICAL ADVICE from the emergency room without any medications. He states he is and prefers natural and herbal remedies versus traditional medications. However he returned to the emergency room again yesterday with worsening left- sided chest pain and shortness of breath. Chest x-ray continues to show left perihilar and lower lobe airspace opacities. No pneumothorax. Agreed to be admitted and is seen today in consultation on the regular medical floor. He is currently awake and alert in no acute distress. He is maintaining good O2 saturations in the 90s on room air. He is afebrile. Hemodynamically stable. He did have a Tmax of 103. White count 12.3. Hemoglobin 11.5. Platelets 226. Sodium 127. Potassium 3.8. Bicarb 23. BUN 11. Creatinine 0.6. Glucose 119. Legionella screen was negative. C. difficile screen was negative. Viral screen was negative. C. difficile screen was negative. D-dimer 5.07. CT angiogram revealed no evidence of pulmonary embolism. There is ongoing multifocal airspace opacities in the bilateral lower lobes and the left perihilar region. He has been initiated on ceftriaxone and azithromycin. Normal saline at 75 mL/h. The patient is seen today March 15, 2024 in follow-up on the regular medical floor. He is currently sitting up in a chair at the bedside. Awake and alert in no acute distress. Feeling a bit better today compared to yesterday. Still with a loose cough. Maintaining good O2 saturations in the 90s on room air. He does have a low-grade fever currently 100.7. Slightly tachycardic. Blood pressure stable. Blood, sputum and stool cultures pending. Sodium 131. Potassium 3.8. Bicarb 22. BUN 5. Creatinine 0.7. Procalcitonin 0.92. He remains on ceftriaxone. Completed azithromycin. Normal saline at 75 mL/h. Objective - Vital Signs Vital signs: Vital Signs Temp 100.3 F H 03/15/24 10:15 Pulse 102 H 03/15/24 07:29 Resp 18 03/15/24 07:29 BP 127/69 03/15/24 07:29 Pulse Ox 94 L 03/15/24 07:29 FiO2 Intake & Output 03/14/24 03/15/24 03/15/24 18:59 06:59 18:59 Intake Total 340 Balance 340 Intake: Oral 340 Other: Voiding Method Toilet # Voids 4 - Exam GENERAL EXAM: Alert, active, pleasant 18-year-old male, up in a chair, on room air, comfortable in no apparent distress. HEAD: Normocephalic. EYES: Normal reaction of pupils, equal size. NOSE: Clear with pink turbinates. THROAT: No erythema or exudates. NECK: No masses, no JVD. CHEST: No chest wall deformity. LUNGS: Equal air entry with scattered rhonchi left greater than right. CVS: S1 and S2 normal with no audible murmur, regular rhythm. ABDOMEN: No hepatosplenomegaly, normal bowel sounds, no guarding or rigidity. SPINE: No scoliosis or deformity SKIN: No rashes CENTRAL NERVOUS SYSTEM: No focal deficits, tone is normal in all 4 extremities. EXTREMITIES: There is no peripheral edema. No clubbing, no cyanosis. Peripheral pulses are intact. - Labs CBC & Chem 7: 03/14/24 03:09 03/15/24 05:16 Labs: Abnormal Lab Results - Last 24 Hours (Table) 03/14/24 03/15/24 Range/Units 09:40 05:16 Sodium 131 L (135-145) mmol/L BUN 5.4 L (9.0-27.0) mg/dL BUN/Creatinine Ratio 7.71 L (12.00-20.00) Ratio Calcium 7.4 L (8.7-10.3) mg/dL Procalcitonin 0.92 H (0.02-0.50) ng/mL Microbiology - Last 24 Hours (Table) 03/13/24 15:42 Gram Stain - Final Sputum Sputum Culture - Final 03/14/24 05:20 Stool Culture - Preliminary Stool 03/13/24 11:50 Blood Culture - Preliminary Blood Assessment and Plan Assessment: Left-sided chest wall pain secondary to an acute community-acquired multilobar pneumonia. Procalcitonin 0.92. Pulmonary embolism ruled out Febrile illness secondary to above Leukocytosis secondary to above Hyponatremia secondary to diarrhea and dehydration History of marijuana use Plan: The patient was seen and evaluated Labs and medications reviewed Currently stable and on room air Continue ceftriaxone, completed azithromycin Continue saline at 75 mL/h Follow-up chest x-ray in a.m. We will continue to follow I have personally seen and examined the patient, performed the documentation and the assessment and plan as written. Number of minutes spent on the visit: 10.
[2024-03-15 12:15] LABS: Basophils # (A) 0.1 k/uL (0-0.2); Basophils % (A) 1 %; Eosinophils # (A) 0.1 k/uL (0-0.7); Eosinophils % (A) 1 %; HCT 37.1 % (39.0-53.0); HGB 12.6 gm/dL (13.0-17.5); Lymphocytes # (A) 1.3 k/uL (1.0-4.8); Lymphocytes % (A) 8 %; MCH 29.3 pg (25.0-35.0); MCHC 33.9 g/dL (31.0-37.0); MCV 86.3 fL (80.0-100.0); Mean Platelet Volume 8.5; Monocytes # (A) 2.3 k/uL (0-1.0); Monocytes % (A) 14 %; Neutrophils # (A) 12.6 k/uL (1.3-7.7); Neutrophils % (A) 75 %; Platelet Count 378 k/uL (150-450); WBC 16.9 k/uL (4.0-11.0)
[2024-03-15 12:33] LABS: Basophils # (A) 0.05 X 10*3/uL (0.00-0.10); Basophils % (A) 0.4 %; Eosinophils # (A) 0.21 X 10*3/uL (0.04-0.35); Eosinophils % (A) 1.6 %; HGB 11.4 g/dL (13.0-17.0); Lymphocytes % (A) 12.8 %; MCH 30.1 pg (27.0-32.0); MCHC 34.5 g/dL (32.0-37.0); MCV 87.1 FL (80.0-97.0); Mean Platelet Volume 11.2 FL (9.5-12.2); Monocytes # (A) 1.18 X 10*3/uL (0.20-1.00); Monocytes % (A) 8.9 %; NRBC Per 100 WBC 0 X 10*3/uL (0.00-0.01); Neutrophils % (A) 75.5 %; Platelet Count 282 X 10*3/uL (140-440); RBC 3.79 X 10*6/uL (4.40-5.60); RBC Morphology Normal (Normal); WBC 13.25 X 10*3/uL (4.50-10.00)
--- NOTE | 2024-03-15 13:34 | P.PN ---
Subjective Progress Note Date: 03/15/24 18 year old male returns to the ED today with complaints of worsening shortness of breath. Was seen yesterday in the ED with plans to admit for pneumonia when he left AMA. Today, he complains of worsening shortness of breath, fever, productive cough, malaise, and left lower rib cage pain. Denies chest pain, syncope, and headache. In the ED patient did have a Tmax of 103. White count 12.3. Hemoglobin 11.5. Platelets 226. Sodium 127. Potassium 3.8. Bicarb 23. BUN 11. Creatinine 0.6. Glucose 119. Legionella screen was negative. C. difficile screen was negative. Viral screen was negative. C. difficile screen was negative. D- dimer 5.07. CT angiogram revealed no evidence of pulmonary embolism. There is ongoing multifocal airspace opacities in the bilateral lower lobes and the left perihilar region. He has been initiated on ceftriaxone and azithromycin 03/15/2024 Patient is seen and evaluated in follow-up on the regular medical floor. He is currently sitting up in a chair at the bedside. Awake and alert in no acute distress. Feeling a bit better today compared to yesterday. Still with a loose cough. Maintaining good O2 saturations in the 90s on room air. He does have a low-grade fever currently 100.7. Slightly tachycardic. Blood pressure stable. Blood, sputum and stool cultures pending. Sodium 131. Potassium 3.8. Bicarb 22. BUN 5. Creatinine 0.7. Procalcitonin 0.92. He remains on ceftriaxone. Completed azithromycin. Normal saline at 75 mL/h. -Patient remains on IV antibiotics in form of Rocephin and azithromycin; ID and pulmonary service following --Pulmonary/critical care evaluated patient and recommending repeat follow-up chest x-ray tomorrow morning; BNP remains stable at 0.92 -- Continue current management with plans for possible discharge tomorrow Objective - Vital Signs Vital signs: Vital Signs Temp 100.3 F H 03/15/24 10:15 Pulse 102 H 03/15/24 07:29 Resp 18 03/15/24 07:29 BP 127/69 03/15/24 07:29 Pulse Ox 94 L 03/15/24 07:29 FiO2 Intake & Output 03/14/24 03/15/24 03/15/24 18:59 06:59 18:59 Intake Total 340 Balance 340 Intake: Oral 340 Other: Voiding Method Toilet # Voids 4 - Exam GENERAL EXAM: Alert, very pleasant, thin 18-year-old male, on room air, fairly comfortable in no apparent distress. HEAD: Normocephalic. EYES: Normal reaction of pupils, equal size. THROAT: No erythema or exudates. NECK: No masses, no JVD. LUNGS: Equal air entry with coarse rhonchi left greater than right. CVS: S1 and S2 normal with no audible murmur, regular rhythm. ABDOMEN: No hepatosplenomegaly, normal bowel sounds, no guarding or rigidity. SKIN: No rashes CENTRAL NERVOUS SYSTEM: No focal deficits, tone is normal in all 4 extremities. EXTREMITIES: There is no peripheral edema. No clubbing, no cyanosis. Peripheral pulses are intact. - Labs CBC & Chem 7: 03/15/24 11:15 03/15/24 05:16 Labs: Abnormal Lab Results - Last 24 Hours (Table) 03/14/24 03/14/24 03/14/24 Range/Units 03:09 03:09 09:40 WBC 12.37 H (4.50-10.00) X 10*3/uL RBC 3.92 L (4.40-5.60) X 10*6/uL Hgb 11.5 L (13.0-17.0) g/dL Hct 32.5 L (39.6-50.0) % Immature Gran # 0.14 H (0.00-0.04) X 10*3/uL Neutrophils # 9.37 H (1.80-7.70) X 10*3/uL Monocytes # 1.18 H (0.20-1.00) X 10*3/uL Sodium 127 L (135-145) mmol/L Chloride 94 L (96-109) mmol/L BUN (9.0-27.0) mg/dL BUN/Creatinine Ratio (12.00-20.00) Ratio Glucose 119 H (70-110) mg/dL Calcium 7.3 L (8.7-10.3) mg/dL Procalcitonin 0.92 H (0.02-0.50) ng/mL 03/15/24 Range/Units 05:16 WBC (4.50-10.00) X 10*3/uL RBC (4.40-5.60) X 10*6/uL Hgb (13.0-17.0) g/dL Hct (39.6-50.0) % Immature Gran # (0.00-0.04) X 10*3/uL Neutrophils # (1.80-7.70) X 10*3/uL Monocytes # (0.20-1.00) X 10*3/uL Sodium 131 L (135-145) mmol/L Chloride (96-109) mmol/L BUN 5.4 L (9.0-27.0) mg/dL BUN/Creatinine Ratio 7.71 L (12.00-20.00) Ratio Glucose (70-110) mg/dL Calcium 7.4 L (8.7-10.3) mg/dL Procalcitonin (0.02-0.50) ng/mL Microbiology - Last 24 Hours (Table) 03/13/24 15:42 Gram Stain - Final Sputum Sputum Culture - Final 03/14/24 05:20 Stool Culture - Preliminary Stool 03/13/24 11:50 Blood Culture - Preliminary Blood Assessment and Plan Assessment: 1. Acute communication acquired pneumonia; multilobar -Patient has been placed on IV Rocephin and azithromycin; bronchodilator nebulizer treatment -Symptomatic treatment of pneumonia -Blood cultures and sputum cultures ordered; urine Legionella antigen -- We will consult ID and pulmonary service 2. Leukocytosis; likely related to 1; will monitor CBC, CRP and procalcitonin 3. Acute onset diarrhea/dehydration; patient has been placed on IV fluids; we will monitor renal function electrolytes 4. Hyponatremia; normal saline at rate of 100 cc an hour; will monitor electrolytes and adjust fluids 5. Elevated D-dimer; rule out PE; and has CT of the chest completed which is negative for PE 6. History of marijuana use; counseling done DVT prophylaxis; SCDs CODE STATUS; full code
--- NOTE | 2024-03-15 15:24 | P.PN ---
Subjective Progress Note Date: 03/15/24 Principal diagnosis: Reason for follow-up is pneumonia Patient is a 18-year-old male current everyday smoker and previous history of pneumonia presenting to the hospital for evaluation of increasing shortness of breath patient has been diagnosed sepsis and pneumonia prompted this consultation. On today's evaluation that is 03/15/2024, Patient is afebrile patient is c urrently on room air and denies having any shortness of breath, the patient denies any chest pain and the patient cough is decreased in intensity, the patient denies any nausea vomiting did not have any abdominal pain and no diarrhea. Patient white count is 16.9 urine for Legionella antigen negative sputum cultures so far negative Objective - Vital Signs Vital signs: Vital Signs Temp 99.6 F 03/15/24 13:10 Pulse 124 H 03/15/24 13:10 Resp 18 03/15/24 13:10 BP 106/60 03/15/24 13:10 Pulse Ox 93 L 03/15/24 13:10 FiO2 Intake & Output 03/14/24 03/15/24 03/15/24 18:59 06:59 18:59 Intake Total 340 Balance 340 Intake: Oral 340 Other: Voiding Method Toilet # Voids 4 - Exam GENERAL DESCRIPTION: Young male lying in bed in no distress RESPIRATORY SYSTEM: Unlabored breathing , decreased breath sounds at bases HEART: S1 S2 regular rate and rhythm , ABDOMEN: Soft , no tenderness EXTREMITIES: No edema feet - Labs CBC & Chem 7: 03/15/24 11:15 03/15/24 05:16 Labs: Abnormal Lab Results - Last 24 Hours (Table) 03/15/24 03/15/24 03/15/24 Range/Units 05:16 05:16 11:15 WBC 13.25 H 16.9 H (4.50-10.00) X 10*3/uL RBC 3.79 L (4.40-5.60) X 10*6/uL Hgb 11.4 L 12.6 L (13.0-17.0) g/dL Hct 33.0 L 37.1 L (39.6-50.0) % Immature Gran # 0.11 H (0.00-0.04) X 10*3/uL Neutrophils # 10.00 H 12.6 H (1.80-7.70) X 10*3/uL Monocytes # 1.18 H 2.3 H (0.20-1.00) X 10*3/uL Sodium 131 L (135-145) mmol/L BUN 5.4 L (9.0-27.0) mg/dL BUN/Creatinine Ratio 7.71 L (12.00-20.00) Ratio Calcium 7.4 L (8.7-10.3) mg/dL Microbiology - Last 24 Hours (Table) 03/13/24 15:42 Gram Stain - Final Sputum Sputum Culture - Final 03/14/24 05:20 Stool Culture - Preliminary Stool 03/13/24 11:50 Blood Culture - Preliminary Blood Assessment and Plan (1) Sepsis Current Visit: Yes Status: Acute Code(s): A41.9 - SEPSIS, UNSPECIFIED ORGANISM SNOMED Code(s): 69204984 (2) Pneumonia Current Visit: Yes Status: Acute Code(s): J18.9 - PNEUMONIA, UNSPECIFIED ORGANISM SNOMED Code(s): 129797469 Plan: 1patient presented hospital with sepsis in this patient who did have fever tachycardia elevated white count source is left-sided pneumonia likely community-acquired patient did have significant diarrhea as well with a question of possible Legionella. 2urine for Legionella antigen came back negative, sputum for Gram stain culture and blood cultures are so far negative 3patient did have a CT angiogram of the chest negative for PE did not show any effusion with evidence of multifocal pneumonia on the left side. 4patient has shown clinical improvement slight worsening of the white count likely steroid related continue with Rocephin and finishing therapy with oral Ceftin Dictation was produced using [employer] dictation software. please excuse any grammatical, word or spelling errors. Time with Patient: Less than 30
[2024-03-16 09:00] LABS: Blood Urea Nitrogen 8.4 mg/dL (9.0-27.0); Calcium 7.7 mg/dL (8.7-10.3); Carbon Dioxide 25.2 mmol/L (21.6-31.8); Chloride 101 mmol/L (96-109); Glucose 101 mg/dL (70-110); Potassium 4.1 mmol/L (3.5-5.5); Sodium 136 mmol/L (135-145)
--- NOTE | 2024-03-16 10:09 | XR ---
EXAMINATION TYPE: XR chest 2V DATE OF EXAM: 03/16/2024 COMPARISON: 03/14/2024 INDICATION: Pneumonia TECHNIQUE: Frontal and lateral views of the chest are obtained. FINDINGS: The heart size is normal. The pulmonary vasculature is normal. Left upper and lower lobe infiltrates remain present. These are similar or slightly improved from com parison. Continued follow-up is recommended. IMPRESSION: 1. Left lung infiltrates can be compatible with pneumonia. There may be slight improvement over the i nterval. Continued follow-up is recommended. [facility], , 03/16/2024 10:06 AM
[2024-03-16 11:12] LABS: Basophils # (A) 0.06 X 10*3/uL (0.00-0.10); Basophils % (A) 0.5 %; Eosinophils % (A) 2.5 %; HCT 34.9 % (39.6-50.0); HGB 12.3 g/dL (13.0-17.0); Lymphocytes # (A) 1.75 X 10*3/uL (0.90-5.00); Lymphocytes % (A) 14.7 %; MCHC 35.2 g/dL (32.0-37.0); MCV 87.9 FL (80.0-97.0); Mean Platelet Volume 10.9 FL (9.5-12.2); Monocytes # (A) 0.98 X 10*3/uL (0.20-1.00); Monocytes % (A) 8.3 %; NRBC Per 100 WBC 0 X 10*3/uL (0.00-0.01); Neutrophils # (A) 8.63 X 10*3/uL (1.80-7.70); Neutrophils % (A) 72.7 %; Platelet Count 345 X 10*3/uL (140-440); RBC 3.97 X 10*6/uL (4.40-5.60); RBC Morphology Normal (Normal); WBC 11.87 X 10*3/uL (4.50-10.00)
--- NOTE | 2024-03-16 12:39 | P.PN ---
Subjective Progress Note Date: 03/16/24 This is a very pleasant 18-year-old male patient with no significant past medical history, no home medications. He does utilize marijuana. He was here in our emergency room on January 10 2024 with complaints of nausea, vomiting and diarrhea along with shortness of breath and left-sided chest pain. He was found to have multi lobar pneumonia however the patient chose to leave AGAINST MEDICAL ADVICE from the emergency room without any medications. He states he is and prefers natural and herbal remedies versus traditional medications. However he returned to the emergency room again yesterday with worsening left- sided chest pain and shortness of breath. Chest x-ray continues to show left perihilar and lower lobe airspace opacities. No pneumothorax. Agreed to be admitted and is seen today in consultation on the regular medical floor. He is currently awake and alert in no acute distress. He is maintaining good O2 saturations in the 90s on room air. He is afebrile. Hemodynamically stable. He did have a Tmax of 103. White count 12.3. Hemoglobin 11.5. Platelets 226. Sodium 127. Potassium 3.8. Bicarb 23. BUN 11. Creatinine 0.6. Glucose 119. Legionella screen was negative. C. difficile screen was negative. Viral screen was negative. C. difficile screen was negative. D-dimer 5.07. CT angiogram revealed no evidence of pulmonary embolism. There is ongoing multifocal airspace opacities in the bilateral lower lobes and the left perihilar region. He has been initiated on ceftriaxone and azithromycin. Normal saline at 75 mL/h. The patient is seen today March 15, 2024 in follow-up on the regular medical floor. He is currently sitting up in a chair at the bedside. Awake and alert in no acute distress. Feeling a bit better today compared to yesterday. Still with a loose cough. Maintaining good O2 saturations in the 90s on room air. He does have a low-grade fever currently 100.7. Slightly tachycardic. Blood pressure stable. Blood, sputum and stool cultures pending. Sodium 131. Potassium 3.8. Bicarb 22. BUN 5. Creatinine 0.7. Procalcitonin 0.92. He remains on ceftriaxone. Completed azithromycin. Normal saline at 75 mL/h. The patient is seen today March 16, 2024 in follow-up on the regular medical floor. He is currently sitting up in a chair. Awake and alert in no acute distress. He is maintaining good O2 saturations in the 90s on room air. He has normal saline at 75 mL/h. He is continued on antibiotics in the form of ceftriaxone. Microbiology is negative thus far. White count 11.8. Hemoglobin 12.3. Platelets 345. Sodium 136. Potassium 4.1. Bicarb 25. BUN 8. Creatinine 0.6. Glucose 101. Chest x-ray showing left lung infiltrates with slight improvement compared to previous on 03/14/2024. Objective - Vital Signs Vital signs: Vital Signs Temp 98.5 F 03/16/24 11:45 Pulse 102 H 03/16/24 08:00 Resp 20 03/16/24 08:00 BP 129/84 03/16/24 08:00 Pulse Ox 99 03/16/24 08:00 FiO2 Intake & Output 03/15/24 03/16/24 03/16/24 18:59 06:59 18:59 Intake Total 540 480 118 Balance 540 480 118 Intake: Oral 540 480 118 Other: Voiding Method Toilet - Exam GENERAL EXAM: Alert, 18-year-old male, up in a chair, on room air, comfortable in no apparent distress. HEAD: Normocephalic. EYES: Normal reaction of pupils, equal size. NOSE: Clear with pink turbinates. THROAT: No erythema or exudates. NECK: No masses, no JVD. CHEST: No chest wall deformity. LUNGS: Equal air entry with scattered rhonchi left greater than right. CVS: S1 and S2 normal with no audible murmur, regular rhythm. ABDOMEN: No hepatosplenomegaly, normal bowel sounds, no guarding or rigidity. SPINE: No scoliosis or deformity SKIN: No rashes CENTRAL NERVOUS SYSTEM: No focal deficits, tone is normal in all 4 extremities. EXTREMITIES: There is no peripheral edema. No clubbing, no cyanosis. Peripheral pulses are intact. - Labs CBC & Chem 7: 03/16/24 06:11 03/16/24 06:11 Labs: Abnormal Lab Results - Last 24 Hours (Table) 03/15/24 03/16/24 03/16/24 Range/Units 05:16 06:11 06:11 WBC 13.25 H 11.87 H (4.50-10.00) X 10*3/uL RBC 3.79 L 3.97 L (4.40-5.60) X 10*6/uL Hgb 11.4 L 12.3 L (13.0-17.0) g/dL Hct 33.0 L 34.9 L (39.6-50.0) % Immature Gran # 0.11 H 0.15 H (0.00-0.04) X 10*3/uL Neutrophils # 10.00 H 8.63 H (1.80-7.70) X 10*3/uL Monocytes # 1.18 H (0.20-1.00) X 10*3/uL BUN 8.4 L (9.0-27.0) mg/dL Calcium 7.7 L (8.7-10.3) mg/dL Microbiology - Last 24 Hours (Table) 03/14/24 05:20 Stool Culture - Preliminary Stool Salmonella species 03/13/24 11:50 Blood Culture - Preliminary Blood 03/13/24 15:42 Gram Stain - Final Sputum Sputum Culture - Final Assessment and Plan Assessment: Left-sided chest wall pain secondary to an acute community-acquired multilobar pneumonia. Procalcitonin 0.92. Suspect a subtype type of Legionella pneumonia Febrile illness secondary to above Leukocytosis secondary to above, improving Hyponatremia, improved currently 136 History of marijuana use Plan: The patient was seen and evaluated Chest x-ray, labs and medications reviewed X-ray showing some improvement Currently stable and on room air Continue ceftriaxone, completed azithromycin Discontinue IV fluids This patient was seen independently by the pulmonary nurse practitioner addressing pulmonary issues I have personally seen and examined the patient, performed the documentation and the assessment and plan as written. Number of minutes spent on the visit: 24.
--- NOTE | 2024-03-16 12:48 | CDI ---
Documentation Clarification Form Date: 03/16/2024 12:16:15 PM From: Leeann May RN, CCDS Phone: [phone] Admit Date: 03/13/2024 01:51:00 PM Patient Name: Andres Nunes Visit Number: [id number] Discharge Date: ATTENTION: The Clinical Documentation Specialists (CDI) and [facility] Coding Staff appreciate your assistance in clarifying documentation. Please respond to the clarification below the line at the bottom and electronically sign. The CDI & [facility] Coding staff will review the response and follow-up if needed. Please note: Queries are made part of the Legal Health Record. If you have any questions, please contact the author of this message via ITS. Doctor Conrado Soto Sepsis is documented by the ID [employer] ax consultant. Based on this information and the findings below, is there an additional diagnosis that is clinically appropriate for this patient? History/Risk Factors: 18-year-old male seen on 03/12 in the ED with plans to admit for pneumonia when he left AMA. Now presents with worsening shortness of breath. Admitted with multilobe pneumonia. Clinical Indicators: 03/13-03/16 WBC: 13.6-12.37-13.25-16.9-11.87 03/13 Lactic acid: 1.1 03/14 Procalcitonin: 0.92 03/14 Stool: salmonella species 03/13 Vital signs: Temp 99.8-99.4-96.8, HR 120 03/14 Vital signs: Temp 103, HR 113 03/13 H&P: "Acute community acquired pneumonia; multilobar. Leukocytosis; likely related to 1; will monitor CBC, CRP and procalcitonin." 03/13 ID: "patient presented to hospital with sepsis. Did have fever, tachycardia and elevated white count. Source is left-sided pneumonia likely community- acquired. Patient did have significant diarrhea as well with a question of possible Legionella." Treatment: Acetaminophen 650mg x1 on 03/13 then Q4H prn 03/14-current; Antibiotics: IV Azithromycin 500mg x1 on 03/13 then daily 03/14-03/15; IV Rocephin 2gm x1 on 03/13 then Q24H 03/14-current IV Bolus: 1L 0.9 NS IV bolus x1 on 03/13 then 75mL/hr current Is there an additional diagnosis that is clinically appropriate for this patient? [ ### ] Sepsis, present on admission [ ] No additional diagnosis [ ] Other, please specify [ ] Unable to determine SIRS Criteria: 2 or more of the following may indicate SIRS Temperature < 96.8F (36C) or > 101.0F (38.3C) Heart Rate > 90 bpm Respiratory Rate > 20 breaths/min or PaCO2 < 32 mmHg White Blood Cell Count > 12,000 or < 4,000 cells/mm3 or > 10% bands MTDD
[2024-03-16] MEDS: NICOTINE 14MG/24HR PATCH TRANSDERM SCH (13:08)
[2024-03-16] MEDS: ALPRAZolam 0.25 MG TAB PO PRN (14:24)
[2024-03-16 15:56] LABS: Appearance,Urine Clear (Clear); Bilirubin,Urine Negative (Negative); Blood,Urine Negative (Negative); Color,Urine Dark Yellow; Glucose,Urine (UA) Negative (Negative); Ketones,Urine Negative (Negative); Leukocyte Esterase,Urine Negative (Negative); Nitrite,Urine Negative (Negative); Protein,Urine Negative (Negative); Specific Gravity,Urine 1.011 (1.001-1.035); Urobilinogen,Urine <2.0 mg/dL (<2.0)
[2024-03-16 16:05] LABS: Amphetamine Screen,Urine Not Detected (NotDetected); Barbiturate Screen,Urine Not Detected (NotDetected); Benzodiazepines Screen,Urine Not Detected (NotDetected); Cocaine Screen,Urine Not Detected (NotDetected); Methadone Screen, Urine Not Detected (NotDetected); Opiate Screen,Urine Not Detected (NotDetected); Oxycodone Screen, Urine Not Detected (NotDetected); Phencyclidine Screen,Urine Not Detected (NotDetected); Tricyclic Antidepressant,Urine Not Detected (NotDetected); Urn Cannabinoid Scrn Detected (NotDetected)
[2024-03-16] MEDS: AZITHROMYCIN 500 MG in SODIUM CHLORIDE 0.9% 250 ML IVPB SCH (16:30)
[2024-03-16] MEDS: CYCLOBENZAPRINE 5 MG TAB PO PRN (18:48)
[2024-03-16] MEDS: HEPARIN SODIUM,PORCINE 5,000 UNIT/ML 1 ML VIAL SQ SCH (20:28)
[2024-03-16 22:34] LABS: HIV 2 AB Non-Reactive (Non-Reactive); HIV AB P24 Non-Reactive (Non-Reactive); HIV P24 AG Non-Reactive (Non-Reactive)
--- NOTE | 2024-03-17 04:49 | PN ---
PROGRESS NOTE DATE OF SERVICE: 03/16/2024 SUBJECTIVE: This is a 18-year-old gentleman, who was admitted with possible pneumonia, multilobar, mainly on the left side, also had a Salmonella grown from the stool also. The patient apparently had some food poisoning resulting from eating 2 days old pizza, one of the patient's roommates also have sickness after several days after eating, but the patient recovered with oral fluids according to him. There is no history of any travel. There is no history of any fever, rigors, or chills. PAST MEDICAL HISTORY: Reviewed. REVIEW OF SYSTEMS: A 14-point review is negative except as mentioned earlier. CURRENT MEDICATIONS: Reviewed include Rocephin. PHYSICAL EXAMINATION: VITAL SIGNS: Pulse is 102, blood pressure is 129/84, respirations 20. HEENT: Conjunctivae normal. NECK: No JVD. CARDIOVASCULAR: S1, S2. RESPIRATIONS: Breath sounds diminished at the bases. A few scattered rhonchi and crackles. ABDOMEN: Soft. NERVOUS SYSTEM: Nonfocal. LABORATORY DATA: D-dimer 1.07. WBC 11.87. ASSESSMENT: 1. Severe multilobar pneumonia on the left side, possibly gram-negative, possibly community-acquired. 2. Salmonella from the stool. 3. Leukocytosis. 4. Hyponatremia. 5. Elevated D-dimer. 6. History of vaping. RECOMMENDATIONS: Recommend to continue current management and continue symptomatic treatment. Continue with antibiotics. Continue with Rocephin. We will add Zithromax to the current regimen. White count is elevated. Closely follow with Infectious Disease. Guarded prognosis. Further recommendations to follow. We will also obtain a COVID-19 testing as well. MMODL / IJN: [id number] /
[2024-03-17] MEDS: PANTOPRAZOLE 40 MG TABLET PO SCH (07:55)
--- NOTE | 2024-03-17 08:33 | P.PN ---
Subjective Progress Note Date: 03/16/24 Principal diagnosis: Reason for follow-up is pneumonia Patient is a 18-year-old male current everyday smoker and previous history of pneumonia presenting to the hospital for evaluation of increasing shortness of breath patient has been diagnosed sepsis and pneumonia prompted this consultation. On today's evaluation that is 03/16/2024, patient did spike a fever this morning of 101.6 F patient overall mention feeling better he seems to be breathing comfortably denies any chest pain coughing decrease in intensity not as productive no nausea vomiting no abdominal pain and did have resolution of his diarrhea. Patient white count is down to 11.87 creatinine 0.6 sputum culture negative stool finalized with Salmonella species chest x-ray with slight improvement Objective - Vital Signs Vital signs: Vital Signs Temp 98.5 F 03/16/24 11:45 Pulse 102 H 03/16/24 08:00 Resp 20 03/16/24 08:00 BP 129/84 03/16/24 08:00 Pulse Ox 99 03/16/24 08:00 FiO2 Intake & Output 03/15/24 03/16/24 03/16/24 18:59 06:59 18:59 Intake Total 540 480 118 Balance 540 480 118 Intake: Oral 540 480 118 Other: Voiding Method Toilet - Exam GENERAL DESCRIPTION: Young male lying in bed in no distress RESPIRATORY SYSTEM: Unlabored breathing , decreased breath sounds at bases HEART: S1 S2 regular rate and rhythm , ABDOMEN: Soft , no tenderness EXTREMITIES: No edema feet - Labs CBC & Chem 7: 03/16/24 06:11 03/16/24 06:11 Labs: Abnormal Lab Results - Last 24 Hours (Table) 03/16/24 03/16/24 Range/Units 06:11 06:11 WBC 11.87 H (4.50-10.00) X 10*3/uL RBC 3.97 L (4.40-5.60) X 10*6/uL Hgb 12.3 L (13.0-17.0) g/dL Hct 34.9 L (39.6-50.0) % Immature Gran # 0.15 H (0.00-0.04) X 10*3/uL Neutrophils # 8.63 H (1.80-7.70) X 10*3/uL BUN 8.4 L (9.0-27.0) mg/dL Calcium 7.7 L (8.7-10.3) mg/dL Microbiology - Last 24 Hours (Table) 03/14/24 05:20 Stool Culture - Preliminary Stool Salmonella species 03/13/24 11:50 Blood Culture - Preliminary Blood 03/13/24 15:42 Gram Stain - Final Sputum Sputum Culture - Final Assessment and Plan (1) Sepsis Current Visit: Yes Status: Acute Code(s): A41.9 - SEPSIS, UNSPECIFIED ORGANISM SNOMED Code(s): 17743668 (2) Pneumonia Current Visit: Yes Status: Acute Code(s): J18.9 - PNEUMONIA, UNSPECIFIED ORGANISM SNOMED Code(s): 082415299 Plan: 1patient presented hospital with sepsis in this patient who did have fever tachycardia elevated white count source is left-sided pneumonia likely community-acquired patient did have significant diarrhea as well with a question of possible Legionella. 2urine for Legionella antigen came back negative, sputum for Gram stain culture and blood cultures are so far negative, stool cultures came back positive with Salmonella species 3patient did have a CT angiogram of the chest negative for PE did not show any effusion with evidence of multifocal pneumonia on the left side. 4patient did have persistent fever which is likely concerning repeat x-ray did show some improvement stool is showing Salmonella however did have resolution of his diarrhea continue with Rocephin if any further fever may benefit from repeat CT to make sure not developing any complications using pain responsible for this persistent fever Dictation was produced using [email or web address] dictation software. please excuse any gramma tical, word or spelling errors. Time with Patient: Greater than 30
[2024-03-17 09:04] LABS: ALT 33 U/L (10-49); AST 61 U/L (14-35); Albumin 2.6 g/dL (3.8-4.9); Albumin/Globulin Ratio 0.96 Ratio (1.60-3.17); Alkaline Phosphatase 72 U/L (41-126); BUN/Creat Ratio 5.86 Ratio (12.00-20.00); Blood Urea Nitrogen 4.1 mg/dL (9.0-27.0); Calcium 7.7 mg/dL (8.7-10.3); Carbon Dioxide 24.1 mmol/L (21.6-31.8); Chloride 101 mmol/L (96-109); Globulin 2.7 g/dL (1.6-3.3); Glucose 96 mg/dL (70-110); Potassium 4.4 mmol/L (3.5-5.5); Sodium 133 mmol/L (135-145); Total Bilirubin 0.4 mg/dL (0.3-1.2); Total Protein 5.3 g/dL (6.2-8.2)
[2024-03-17 10:11] LABS: T4/T8 Ratio (CD4:CD8) 1.8 (1.0-3.7)
[2024-03-17 10:40] LABS: Basophils # (A) 0.05 X 10*3/uL (0.00-0.10); Basophils % (A) 0.5 %; Eosinophils # (A) 0.34 X 10*3/uL (0.04-0.35); Eosinophils % (A) 3.3 %; HGB 10.7 g/dL (13.0-17.0); Lymphocytes % (A) 17.6 %; MCH 35.4 pg (27.0-32.0); MCHC 38.2 g/dL (32.0-37.0); MCV 92.7 FL (80.0-97.0); Monocytes % (A) 7.8 %; NRBC Per 100 WBC 0 X 10*3/uL (0.00-0.01); Neutrophils # (A) 7.08 X 10*3/uL (1.80-7.70); Neutrophils % (A) 69.4 %; Platelet Count 129 X 10*3/uL (140-440); RBC 3.02 X 10*6/uL (4.40-5.60); RDW 16.5 % (11.5-14.5); WBC 10.21 X 10*3/uL (4.50-10.00)
--- NOTE | 2024-03-17 11:28 | P.PN ---
Subjective Progress Note Date: 03/17/24 This is a very pleasant 18-year-old male patient with no significant past medical history, no home medications. He does utilize marijuana. He was here in our emergency room on January 10 2024 with complaints of nausea, vomiting and diarrhea along with shortness of breath and left-sided chest pain. He was found to have multi lobar pneumonia however the patient chose to leave AGAINST MEDICAL ADVICE from the emergency room without any medications. He states he is and prefers natural and herbal remedies versus traditional medications. However he returned to the emergency room again yesterday with worsening left- sided chest pain and shortness of breath. Chest x-ray continues to show left perihilar and lower lobe airspace opacities. No pneumothorax. Agreed to be admitted and is seen today in consultation on the regular medical floor. He is currently awake and alert in no acute distress. He is maintaining good O2 saturations in the 90s on room air. He is afebrile. Hemodynamically stable. He did have a Tmax of 103. White count 12.3. Hemoglobin 11.5. Platelets 226. Sodium 127. Potassium 3.8. Bicarb 23. BUN 11. Creatinine 0.6. Glucose 119. Legionella screen was negative. C. difficile screen was negative. Viral screen was negative. C. difficile screen was negative. D-dimer 5.07. CT angiogram revealed no evidence of pulmonary embolism. There is ongoing multifocal airspace opacities in the bilateral lower lobes and the left perihilar region. He has been initiated on ceftriaxone and azithromycin. Normal saline at 75 mL/h. The patient is seen today March 15, 2024 in follow-up on the regular medical floor. He is currently sitting up in a chair at the bedside. Awake and alert in no acute distress. Feeling a bit better today compared to yesterday. Still with a loose cough. Maintaining good O2 saturations in the 90s on room air. He does have a low-grade fever currently 100.7. Slightly tachycardic. Blood pressure stable. Blood, sputum and stool cultures pending. Sodium 131. Potassium 3.8. Bicarb 22. BUN 5. Creatinine 0.7. Procalcitonin 0.92. He remains on ceftriaxone. Completed azithromycin. Normal saline at 75 mL/h. The patient is seen today March 16, 2024 in follow-up on the regular medical floor. He is currently sitting up in a chair. Awake and alert in no acute distress. He is maintaining good O2 saturations in the 90s on room air. He has normal saline at 75 mL/h. He is continued on antibiotics in the form of ceftriaxone. Microbiology is negative thus far. White count 11.8. Hemoglobin 12.3. Platelets 345. Sodium 136. Potassium 4.1. Bicarb 25. BUN 8. Creatinine 0.6. Glucose 101. Chest x-ray showing left lung infiltrates with slight improvement compared to previous on 03/14/2024. The patient is seen today March 17, 2024 in follow-up on the regular medical floor. He is awake and alert in no acute distress. Sitting up at the bedside. Denies any worsening shortness of breath, cough or congestion. He continues to maintain good O2 saturations in the 90s on room air. He is continued on antibiotics in the form of ceftriaxone and azithromycin. His stool culture was positive for Salmonella. Infectious disease is on the case. He is on Xanax for anxiety. NicoDerm patch in place. Robitussin for his cough. Heparin for DVT prophylaxis. Objective - Vital Signs Vital signs: Vital Signs Temp 102.8 F H 03/17/24 07:15 Pulse 96 03/17/24 07:15 Resp 18 03/17/24 07:15 BP 132/77 03/17/24 07:15 Pulse Ox 99 03/17/24 07:15 FiO2 21 03/17/24 07:57 Intake & Output 03/16/24 03/17/24 03/17/24 18:59 06:59 18:59 Intake Total 236 480 Balance 236 480 Intake: Oral 236 480 Other: Voiding Method Toilet # Voids 1 1 - Exam GENERAL EXAM: Alert, pleasant 18-year-old male, on room air, comfortable in no apparent distress. HEAD: Normocephalic. EYES: Normal reaction of pupils, equal size. NOSE: Clear with pink turbinates. THROAT: No erythema or exudates. NECK: No masses, no JVD. CHEST: No chest wall deformity. LUNGS: Equal air entry with scattered rhonchi left greater than right. CVS: S1 and S2 normal with no audible murmur, regular rhythm. ABDOMEN: No hepatosplenomegaly, normal bowel sounds, no guarding or rigidity. SPINE: No scoliosis or deformity SKIN: No rashes CENTRAL NERVOUS SYSTEM: No focal deficits, tone is normal in all 4 extremities. EXTREMITIES: There is no peripheral edema. No clubbing, no cyanosis. P eripheral pulses are intact. - Labs CBC & Chem 7: 03/17/24 02:42 03/17/24 02:42 Labs: Abnormal Lab Results - Last 24 Hours (Table) 03/16/24 03/16/24 03/16/24 Range/Units 14:39 14:39 15:37 WBC (4.50-10.00) X 10*3/uL RBC (4.40-5.60) X 10*6/uL Hgb (13.0-17.0) g/dL Hct (39.6-50.0) % MCH (27.0-32.0) pg MCHC (32.0-37.0) g/dL RDW (11.5-14.5) % Plt Count (140-440) X 10*3/uL Immature Gran # (0.00-0.04) X 10*3/uL Sodium (135-145) mmol/L BUN (9.0-27.0) mg/dL BUN/Creatinine Ratio (12.00-20.00) Ratio Calcium (8.7-10.3) mg/dL AST (14-35) U/L C-Reactive Protein 23.3 H (<1.0) mg/dL Total Protein (6.2-8.2) g/dL Albumin (3.8-4.9) g/dL Albumin/Globulin Ratio (1.60-3.17) Ratio U Marijuana (THC) Screen Detected H (NotDetected) Natural Killer Cells 40 L (60-500) cell/ul 03/17/24 03/17/24 Range/Units 02:42 02:42 WBC 10.21 H (4.50-10.00) X 10*3/uL RBC 3.02 L (4.40-5.60) X 10*6/uL Hgb 10.7 L (13.0-17.0) g/dL Hct 28.0 L (39.6-50.0) % MCH 35.4 H (27.0-32.0) pg MCHC 38.2 H (32.0-37.0) g/dL RDW 16.5 H (11.5-14.5) % Plt Count 129 L (140-440) X 10*3/uL Immature Gran # 0.14 H (0.00-0.04) X 10*3/uL Sodium 133 L (135-145) mmol/L BUN 4.1 L (9.0-27.0) mg/dL BUN/Creatinine Ratio 5.86 L (12.00-20.00) Ratio Calcium 7.7 L (8.7-10.3) mg/dL AST 61 H (14-35) U/L C-Reactive Protein (<1.0) mg/dL Total Protein 5.3 L (6.2-8.2) g/dL Albumin 2.6 L (3.8-4.9) g/dL Albumin/Globulin Ratio 0.96 L (1.60-3.17) Ratio U Marijuana (THC) Screen (NotDetected) Natural Killer Cells (60-500) cell/ul Microbiology - Last 24 Hours (Table) 03/14/24 05:20 Stool Culture - Final Stool Salmonella species 03/13/24 11:50 Blood Culture - Preliminary Blood Assessment and Plan Assessment: Left-sided chest wall pain secondary to an acute community-acquired multilobar pneumonia. Procalcitonin 0.92. Suspect a subtype type of Legionella pneumonia Salmonella found positive in his stool culture Febrile illness secondary to above Leukocytosis secondary to above, improving Hyponatremia, improved currently 136 History of marijuana use Plan: The patient was seen and evaluated Chest x-ray, labs and medications reviewed Currently stable and on room air Antibiotics per ID service Follow-up chest x-ray in a.m. This patient was seen independently by the pulmonary nurse practitioner addressing pulmonary issues I have personally seen and examined the patient, performed the documentation and the assessment and plan as written. Number of minutes spent on the visit: 23.
[2024-03-17] MEDS ORDERED: RX INFO: IV CONTRAST WAS GIVEN 1 EACH MISC MISCELLANE PRN (12:02)
[2024-03-17] MEDS: ZINC SULFATE 220 MG CAP PO SCH (13:07)
--- NOTE | 2024-03-17 13:17 | P.PN ---
Subjective Progress Note Date: 03/17/24 Principal diagnosis: Reason for follow-up is pneumonia Patient is a 18-year-old male current everyday smoker and previous history of pneumonia presenting to the hospital for evaluation of increasing shortness of breath patient has been diagnosed sepsis and pneumonia prompted this consultation. On today's evaluation that is 03/17/2024, Patient is febrile this morning with a temperature of 102.8 F patient has been complaining of left-sided chest pain he could not have a cough no decrease in intensity no nausea vomiting no abdominal pain did have resolution of his diarrhea. The patient white count is 10.21, creatinine 0.7 Objective - Vital Signs Vital signs: Vital Signs Temp 99.7 F H 03/17/24 10:30 Pulse 96 03/17/24 07:15 Resp 18 03/17/24 07:15 BP 132/77 03/17/24 07:15 Pulse Ox 99 03/17/24 07:15 FiO2 21 03/17/24 07:57 Intake & Output 03/16/24 03/17/24 03/17/24 18:59 06:59 18:59 Intake Total 236 480 Balance 236 480 Intake: Oral 236 480 Other: Voiding Method Toilet # Voids 1 1 - Exam GENERAL DESCRIPTION: Young male lying in bed in no distress RESPIRATORY SYSTEM: Unlabored breathing , decreased breath sounds at bases HEART: S1 S2 regular rate and rhythm , ABDOMEN: Soft , no tenderness EXTREMITIES: No edema feet - Labs CBC & Chem 7: 03/17/24 02:42 03/17/24 02:42 Labs: Abnormal Lab Results - Last 24 Hours (Table) 03/16/24 03/16/24 03/16/24 Range/Units 14:39 14:39 15:37 WBC (4.50-10.00) X 10*3/uL RBC (4.40-5.60) X 10*6/uL Hgb (13.0-17.0) g/dL Hct (39.6-50.0) % MCH (27.0-32.0) pg MCHC (32.0-37.0) g/dL RDW (11.5-14.5) % Plt Count (140-440) X 10*3/uL Immature Gran # (0.00-0.04) X 10*3/uL Sodium (135-145) mmol/L BUN (9.0-27.0) mg/dL BUN/Creatinine Ratio (12.00-20.00) Ratio Calcium (8.7-10.3) mg/dL AST (14-35) U/L C-Reactive Protein 23.3 H (<1.0) mg/dL Total Protein (6.2-8.2) g/dL Albumin (3.8-4.9) g/dL Albumin/Globulin Ratio (1.60-3.17) Ratio U Marijuana (THC) Screen Detected H (NotDetected) Natural Killer Cells 40 L (60-500) cell/ul 03/17/24 03/17/24 Range/Units 02:42 02:42 WBC 10.21 H (4.50-10.00) X 10*3/uL RBC 3.02 L (4.40-5.60) X 10*6/uL Hgb 10.7 L (13.0-17.0) g/dL Hct 28.0 L (39.6-50.0) % MCH 35.4 H (27.0-32.0) pg MCHC 38.2 H (32.0-37.0) g/dL RDW 16.5 H (11.5-14.5) % Plt Count 129 L (140-440) X 10*3/uL Immature Gran # 0.14 H (0.00-0.04) X 10*3/uL Sodium 133 L (135-145) mmol/L BUN 4.1 L (9.0-27.0) mg/dL BUN/Creatinine Ratio 5.86 L (12.00-20.00) Ratio Calcium 7.7 L (8.7-10.3) mg/dL AST 61 H (14-35) U/L C-Reactive Protein (<1.0) mg/dL Total Protein 5.3 L (6.2-8.2) g/dL Albumin 2.6 L (3.8-4.9) g/dL Albumin/Globulin Ratio 0.96 L (1.60-3.17) Ratio U Marijuana (THC) Screen (NotDetected) Natural Killer Cells (60-500) cell/ul Microbiology - Last 24 Hours (Table) 03/14/24 05:20 Stool Culture - Final Stool Salmonella species 03/13/24 11:50 Blood Culture - Preliminary Blood Assessment and Plan (1) Sepsis Current Visit: Yes Status: Acute Code(s): A41.9 - SEPSIS, UNSPECIFIED ORGANISM SNOMED Code(s): 09578330 (2) Pneumonia Current Visit: Yes Status: Acute Code(s): J18.9 - PNEUMONIA, UNSPECIFIED ORGANISM SNOMED Code(s): 863749193 Plan: 1patient presented hospital with sepsis in this patient who did have fever tachycardia elevated white count source is left-sided pneumonia likely community-acquired patient did have significant diarrhea as well with a question of possible Legionella. 2urine for Legionella antigen came back negative, sputum for Gram stain culture and blood cultures are so far negative, stool cultures came back positive with Salmonella species 3patient did have a CT angiogram of the chest negative for PE did not show any effusion with evidence of multifocal pneumonia on the left side. 4patient did have persistent fever which is slightly concerning we will go ahead and check a CT of the chest with contrast to make sure patient has not developed any complication related to his pneumonia, Rocephin will be restarted as the patient not behaving as simple community-acquired pneumonia and 5 days of antibiotic is not enough Dictation was produced using [employer] dictation software. please excuse any grammatical, word or spelling errors. Time with Patient: Less than 30
--- NOTE | 2024-03-17 13:29 | CT ---
EXAMINATION TYPE: CT chest w con DATE OF EXAM: 03/17/2024 COMPARISON: 03/14/2024 HISTORY: 18-year-old male L side pneumonia persistent fever, ?empyema TECHNIQUE: Contiguous axial scanning of the chest after the administration of 80ml mL of Isovue 300. Coronal/sagittal reconstructions performed. CT DLP: 335mGycm. Automatic exposure control utilized for a dose reduction. FINDINGS: The heart is normal size. There is a small basilar pericardial effusion measuring 1.2 cm thick that a ppears increased from recent prior. Aorta normal caliber with conventional arch vessel branching anatomy. There is some residual thymic tissue along the anterior mediastinum. Paratracheal lymph node measures up to 7 mm. Subcarinal lymph node measures 1.2 cm. Hilar nodes most measure up to 1.5 cm on the left. There is severe airspace disease throughout the left lower lobe with some interval increase and previ ous areas appearing more confluent with increasing air bronchograms. Patchy nodular infiltrate throug hout the left upper lobe and to a lesser extent at the right base is similar. No cavitary changes or discrete pleural effusion is seen at this time. Visualized upper abdomen show some focal fat along the anterior falciform ligament. Bones: No osseous destructive process. IMPRESSION: 1. Severe pneumonia throughout the left lower lobe shows interval worsening. Patchy and nodular infil trate throughout the left upper lobe and to a lesser extent at the right base is similar. 2. No cavitary necrosis or discrete pleural effusion identified at this time. 3. Left hilar adenopathy measuring up to 1.5 cm likely reactive. [facility], , 03/17/2024 1:27 PM
--- NOTE | 2024-03-17 14:22 | PN ---
PROGRESS NOTE DATE OF SERVICE: 03/17/2024 SUBJECTIVE: This is a 18-year-old gentleman, who was admitted with significant pneumonia on the left side, also had salmonella grown from the stool culture. The patient also suspect to have some immunodeficiency with slightly low killer cells. The patient also had mild hypocalcemia. HIV is negative. The patient is still running fever. PAST MEDICAL HISTORY: Reviewed. REVIEW OF SYSTEMS: A 14-point review is negative except as mentioned earlier. CURRENT MEDICATIONS: Reviewed include IV Rocephin. PHYSICAL EXAMINATION: VITAL SIGNS: Pulse 96, blood pressure 132/76, respirations 18. HEENT: Conjunctivae normal. NECK: No JVD. CARDIOVASCULAR: S1, S2. RESPIRATIONS: Breath sounds diminished at the bases. A few scattered rhonchi and crackles. ABDOMEN: Soft, nontender. LEGS: No edema. NERVOUS SYSTEM: Nonfocal. LABORATORY DATA: Reviewed. ASSESSMENT: 1. Severe multilobar pneumonia on the left side, possibly gram-negative, possibly community-acquired with continued fever. 2. Salmonella from the stool. 3. Leukocytosis. 4. Hyponatremia. 5. Elevated D-dimer. 6. History of vaping. 7. Possible immunodeficiency. 8. Diminished natural killer cells. RECOMMENDATIONS: Recommend to continue with current medications. Continue symptomatic treatment. Otherwise, continue with antibiotics. We will obtain repeat cultures because of the fever and continue to monitor. Further recommendations to follow. MMODL / IJN: [id number] /
[2024-03-18 04:49] LABS: Mycoplasma IgG Antibody (EIA) 4.68 INDEX (<=0.90); Mycoplasma IgM Antibody 2.57 INDEX (<=0.90)
[2024-03-18 09:47] LABS: ALT 44 U/L (10-49); AST 71 U/L (14-35); Albumin 2.8 g/dL (3.8-4.9); Albumin/Globulin Ratio 0.82 Ratio (1.60-3.17); Alkaline Phosphatase 82 U/L (41-126); BUN/Creat Ratio 13.29 Ratio (12.00-20.00); Blood Urea Nitrogen 9.3 mg/dL (9.0-27.0); Calcium 8.2 mg/dL (8.7-10.3); Chloride 101 mmol/L (96-109); Globulin 3.4 g/dL (1.6-3.3); Glucose 123 mg/dL (70-110); Potassium 4.7 mmol/L (3.5-5.5); Sodium 135 mmol/L (135-145); Total Bilirubin 0.3 mg/dL (0.3-1.2); Total Protein 6.2 g/dL (6.2-8.2)
--- NOTE | 2024-03-18 11:06 | P.PN ---
Subjective Progress Note Date: 03/18/24 This is a very pleasant 18-year-old male patient with no significant past medical history, no home medications. He does utilize marijuana. He was here in our emergency room on January 10 2024 with complaints of nausea, vomiting and diarrhea along with shortness of breath and left-sided chest pain. He was found to have multi lobar pneumonia however the patient chose to leave AGAINST MEDICAL ADVICE from the emergency room without any medications. He states he is and prefers natural and herbal remedies versus traditional medications. However he returned to the emergency room again yesterday with worsening left- sided chest pain and shortness of breath. Chest x-ray continues to show left perihilar and lower lobe airspace opacities. No pneumothorax. Agreed to be admitted and is seen today in consultation on the regular medical floor. He is currently awake and alert in no acute distress. He is maintaining good O2 saturations in the 90s on room air. He is afebrile. Hemodynamically stable. He did have a Tmax of 103. White count 12.3. Hemoglobin 11.5. Platelets 226. Sodium 127. Potassium 3.8. Bicarb 23. BUN 11. Creatinine 0.6. Glucose 119. Legionella screen was negative. C. difficile screen was negative. Viral screen was negative. C. difficile screen was negative. D-dimer 5.07. CT angiogram revealed no evidence of pulmonary embolism. There is ongoing multifocal airspace opacities in the bilateral lower lobes and the left perihilar region. He has been initiated on ceftriaxone and azithromycin. Normal saline at 75 mL/h. The patient is seen today March 15, 2024 in follow-up on the regular medical floor. He is currently sitting up in a chair at the bedside. Awake and alert in no acute distress. Feeling a bit better today compared to yesterday. Still with a loose cough. Maintaining good O2 saturations in the 90s on room air. He does have a low-grade fever currently 100.7. Slightly tachycardic. Blood pressure stable. Blood, sputum and stool cultures pending. Sodium 131. Potassium 3.8. Bicarb 22. BUN 5. Creatinine 0.7. Procalcitonin 0.92. He remains on ceftriaxone. Completed azithromycin. Normal saline at 75 mL/h. The patient is seen today March 16, 2024 in follow-up on the regular medical floor. He is currently sitting up in a chair. Awake and alert in no acute distress. He is maintaining good O2 saturations in the 90s on room air. He has normal saline at 75 mL/h. He is continued on antibiotics in the form of ceftriaxone. Microbiology is negative thus far. White count 11.8. Hemoglobin 12.3. Platelets 345. Sodium 136. Potassium 4.1. Bicarb 25. BUN 8. Creatinine 0.6. Glucose 101. Chest x-ray showing left lung infiltrates with slight improvement compared to previous on 03/14/2024. The patient is seen today March 17, 2024 in follow-up on the regular medical floor. He is awake and alert in no acute distress. Sitting up at the bedside. Denies any worsening shortness of breath, cough or congestion. He continues to maintain good O2 saturations in the 90s on room air. He is continued on antibiotics in the form of ceftriaxone and azithromycin. His stool culture was positive for Salmonella. Infectious disease is on the case. He is on Xanax for anxiety. NicoDerm patch in place. Robitussin for his cough. Heparin for DVT prophylaxis. The patient is seen today March 18, 2024 in follow-up on the regular medical floor. He is currently sitting up at the bedside. Awake and alert in no acute distress. Continues to maintain good O2 saturations in the 90s on room air. He states he is feeling better today compared to yesterday. Less left sided chest discomfort. Less cough and congestion. Scan of the chest from yesterday revealed severe pneumonia throughout the left lower lobe showing interval worsening. Patchy and nodular infiltrate throughout the left upper lobe and to a lesser extent the right base is similar. No cavitary necrosis noted. Sputum culture revealed no growth. Blood culture revealed no growth. Stool culture was positive for Salmonella. Mycoplasma pneumonia IgG was high at 4.68, IgM high at 2.57. He remains on ceftriaxone and azithromycin. NicoDerm patch in place. Objective - Vital Signs Vital signs: Vital Signs Temp 101.2 F H 03/18/24 07:20 Pulse 108 H 03/18/24 07:20 Resp 16 03/18/24 07:20 BP 128/76 03/18/24 07:20 Pulse Ox 97 03/18/24 07:20 FiO2 21 03/17/24 07:57 Intake & Output 0903/18/24 03/18/24 18:59 06:59 18:59 Intake Total 2400 360 Balance 2400 360 Intake: Intake, IV Titration 300 Amount Azithromycin 500 mg In 250 Sodium Chloride 0.9% 250 ml @ 250 mls/hr IVPB DAILY@1600 [facility] Rx#: [id number] cefTRIAXone 2 gm In 50 Sodium Chloride 0.9% 50 ml @ 100 mls/hr IVPB Q24HR [facility] Rx#:[id number] Oral 2100 360 Other: Voiding Method Toilet # Voids 3 3 - Exam GENERAL EXAM: Alert, pleasant 18-year-old male, on room air, up in a chair, in no apparent distress. HEAD: Normocephalic. EYES: Normal reaction of pupils, equal size. NOSE: Clear with pink turbinates. THROAT: No erythema or exudates. NECK: No masses, no JVD. CHEST: No chest wall deformity. LUNGS: Equal air entry with scattered rhonchi left greater than right. CVS: S1 and S2 normal with no audible murmur, regular rhythm. ABDOMEN: No hepatosplenomegaly, normal bowel sounds, no guarding or rigidity. SPINE: No scoliosis or deformity SKIN: No rashes CENTRAL NERVOUS SYSTEM: No focal deficits, tone is normal in all 4 extremities. EXTREMITIES: There is no peripheral edema. No clubbing, no cyanosis. Peripheral pulses are intact. - Labs CBC & Chem 7: 03/17/24 02:42 03/18/24 03:33 Labs: Abnormal Lab Results - Last 24 Hours (Table) 03/16/24 03/18/24 Range/Units 14:39 03:33 Glucose 123 H (70-110) mg/dL Calcium 8.2 L (8.7-10.3) mg/dL AST 71 H (14-35) U/L Albumin 2.8 L (3.8-4.9) g/dL Globulin 3.4 H (1.6-3.3) g/dL Albumin/Globulin Ratio 0.82 L (1.60-3.17) Ratio Mycoplasma pneumon IgG 4.68 H (<=0.90) INDEX Mycoplasma pneumon IgM 2.57 H (<=0.90) INDEX Microbiology - Last 24 Hours (Table) 03/14/24 05:20 Stool Culture - Final Stool Salmonella species Assessment and Plan Assessment: Left-sided chest wall pain secondary to an acute community-acquired multilobar pneumonia. Procalcitonin 0.92. Suspect a subtype type of Legionella pneumonia. Elevated mycoplasma pneumonia IgG, IgM Salmonella found positive in his stool culture Febrile illness secondary to above Leukocytosis secondary to above, improving Hyponatremia, improved currently 135 History of marijuana use Plan: The patient was seen and evaluated CT scan of the chest, labs and medications reviewed Still with extensive left lower lobe pneumonia The patient is feeling better Currently stable and on room air Antibiotics per ID service I have personally seen and examined the patient, performed the documentation and the assessment and plan as written. Number of minutes spent on the visit: 10.
[2024-03-18 12:16] LABS: Basophils # (A) 0.08 X 10*3/uL (0.00-0.10); Basophils % (A) 0.7 %; Eosinophils # (A) 0.26 X 10*3/uL (0.04-0.35); Eosinophils % (A) 2.3 %; HCT 22.8 % (39.6-50.0); Lymphocytes # (A) 2.08 X 10*3/uL (0.90-5.00); Lymphocytes % (A) 18.7 %; MCH 41.7 pg (27.0-32.0); MCHC 43.9 g/dL (32.0-37.0); Mean Platelet Volume 12.1 FL (9.5-12.2); Monocytes # (A) 1.07 X 10*3/uL (0.20-1.00); Monocytes % (A) 9.6 %; NRBC Per 100 WBC 0 X 10*3/uL (0.00-0.01); Neutrophils # (A) 7.53 X 10*3/uL (1.80-7.70); Neutrophils % (A) 67.9 %; Platelet Count 287 X 10*3/uL (140-440); WBC 11.11 X 10*3/uL (4.50-10.00)
[2024-03-18] MEDS: AZITHROMYCIN 500 MG in SODIUM CHLORIDE 0.9% 250 ML IVPB SCH (12:59)
[2024-03-18] MEDS: PIPERACILLIN-TAZOBACTAM 3.375 GM in SODIUM CHLORIDE 0.9% 100 ML IVPB SCH (12:59)
--- NOTE | 2024-03-18 13:48 | PN ---
PROGRESS NOTE DATE OF SERVICE: 03/18/2024 SUBJECTIVE: This is a 18-year-old gentleman who was admitted with significant pneumonia on the left side, shows some interval worsening. The patient continues to have some fever. Mycoplasma antibody level was 2.57. The patient also had possible immunodeficiency also. PAST MEDICAL HISTORY: Reviewed. REVIEW OF SYSTEMS: Fourteen-point review is negative except as mentioned earlier. CURRENT MEDICATIONS: Reviewed include IV Zosyn. Rest of medications reviewed. PHYSICAL EXAMINATION: VITAL SIGNS: Pulse is 108, blood pressure 128/77, respirations 16. CHEST: A few scattered rhonchi and crackles. ABDOMEN: Soft. NERVOUS SYSTEM: Nonfocal. LABORATORY DATA: Noted. ASSESSMENT: 1. Severe multilobar extensive pneumonia on the left side, possibly gram-negative, possibly mycoplasma with continued fever. 2. Salmonella from the stool. 3. 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 4. Leukocytosis. 5. Hyponatremia. 6. Elevated D-dimer. 7. History of vaping. RECOMMENDATIONS AND DISCUSSION: I recommend to continue current management and continue symptomatic treatment. Antibiotics changed to Zosyn. I would closely follow with Infectious Disease. Guarded prognosis because of multiple complex medical issues. Continue with evaluation for the immunodeficiency states. Further recommendations to follow. MMODL / IJN: [id number] /
[2024-03-19 08:59] LABS: BUN/Creat Ratio 14.43 Ratio (12.00-20.00); Blood Urea Nitrogen 10.1 mg/dL (9.0-27.0); Calcium 8.6 mg/dL (8.7-10.3); Carbon Dioxide 24.1 mmol/L (21.6-31.8); Chloride 97 mmol/L (96-109); Glucose 97 mg/dL (70-110); Potassium 4.3 mmol/L (3.5-5.5); Sodium 131 mmol/L (135-145)
[2024-03-19 10:27] LABS: Basophils # (A) 0.05 X 10*3/uL (0.00-0.10); Basophils % (A) 0.4 %; Eosinophils # (A) 0.37 X 10*3/uL (0.04-0.35); HCT 29.5 % (39.6-50.0); HGB 11.2 g/dL (13.0-17.0); Lymphocytes # (A) 2.11 X 10*3/uL (0.90-5.00); Lymphocytes % (A) 17.3 %; MCH 35.6 pg (27.0-32.0); MCV 93.7 FL (80.0-97.0); Mean Platelet Volume 11.7 FL (9.5-12.2); Monocytes # (A) 1.04 X 10*3/uL (0.20-1.00); Monocytes % (A) 8.5 %; NRBC Per 100 WBC 0 X 10*3/uL (0.00-0.01); Neutrophils # (A) 8.51 X 10*3/uL (1.80-7.70); Neutrophils % (A) 69.7 %; Platelet Count 293 X 10*3/uL (140-440); RBC 3.15 X 10*6/uL (4.40-5.60); RDW 16.6 % (11.5-14.5); WBC 12.22 X 10*3/uL (4.50-10.00)
--- NOTE | 2024-03-19 12:12 | P.PN ---
Subjective Progress Note Date: 03/19/24 Principal diagnosis: Pneumonia. This is a very pleasant 18-year-old male patient with no significant past medical history, no home medications. He does utilize marijuana. He was here in our emergency room on January 10 2024 with complaints of nausea, vomiting and diarrhea along with shortness of breath and left-sided chest pain. He was found to have multi lobar pneumonia however the patient chose to leave AGAINST MEDICAL ADVICE from the emergency room without any medications. He states he is and prefers natural and herbal remedies versus traditional medications. However he returned to the emergency room again yesterday with worsening left- sided chest pain and shortness of breath. Chest x-ray continues to show left perihilar and lower lobe airspace opacities. No pneumothorax. Agreed to be admitted and is seen today in consultation on the regular medical floor. He is currently awake and alert in no acute distress. He is maintaining good O2 sa turations in the 90s on room air. He is afebrile. Hemodynamically stable. He did have a Tmax of 103. White count 12.3. Hemoglobin 11.5. Platelets 226. Sodium 127. Potassium 3.8. Bicarb 23. BUN 11. Creatinine 0.6. Glucose 119. Legionella screen was negative. C. difficile screen was negative. Viral screen was negative. C. difficile screen was negative. D-dimer 5.07. CT angiogram re vealed no evidence of pulmonary embolism. There is ongoing multifocal airspace opacities in the bilateral lower lobes and the left perihilar region. He has been initiated on ceftriaxone and azithromycin. Normal saline at 75 mL/h. The patient is seen today March 15, 2024 in follow-up on the regular medical floor. He is currently sitting up in a chair at the bedside. Awake and alert in no acute distress. Feeling a bit better today compared to yesterday. Still with a loose cough. Maintaining good O2 saturations in the 90s on room air. He does have a low-grade fever currently 100.7. Slightly tachycardic. Blood pressure stable. Blood, sputum and stool cultures pending. Sodium 131. Potassium 3.8. Bicarb 22. BUN 5. Creatinine 0.7. Procalcitonin 0.92. He remains on ceftriaxone. Completed azithromycin. Normal saline at 75 mL/h. The patient is seen today March 16, 2024 in follow-up on the regular medical floor. He is currently sitting up in a chair. Awake and alert in no acute distress. He is maintaining good O2 saturations in the 90s on room air. He has normal saline at 75 mL/h. He is continued on antibiotics in the form of ceftriaxone. Microbiology is negative thus far. White count 11.8. Hemoglobin 12.3. Platelets 345. Sodium 136. Potassium 4.1. Bicarb 25. BUN 8. Creatinine 0.6. Glucose 101. Chest x-ray showing left lung infiltrates with s light improvement compared to previous on 03/14/2024. The patient is seen today March 17, 2024 in follow-up on the regular medical floor. He is awake and alert in no acute distress. Sitting up at the bedside. Denies any worsening shortness of breath, cough or congestion. He continues to maintain good O2 saturations in the 90s on room air. He is continued on antibiotics in the form of ceftriaxone and azithromycin. His stool culture was positive for Salmonella. Infectious disease is on the case. He is on Xanax for anxiety. NicoDerm patch in place. Robitussin for his cough. Heparin for DVT prophylaxis. The patient is seen today March 18, 2024 in follow-up on the regular medical floor. He is currently sitting up at the bedside. Awake and alert in no acute distress. Continues to maintain good O2 saturations in the 90s on room air. He states he is feeling better today compared to yesterday. Less left sided chest discomfort. Less cough and congestion. Scan of the chest from yesterday revealed severe pneumonia throughout the left lower lobe showing interval worsening. Patchy and nodular infiltrate throughout the left upper lobe and to a lesser extent the right base is similar. No cavitary necrosis noted. Sputum culture revealed no growth. Blood culture revealed no growth. Stool culture was positive for Salmonella. Mycoplasma pneumonia IgG was high at 4.68, IgM high at 2.57. He remains on ceftriaxone and azithromycin. NicoDerm patch in place. Progress note dated March 19, 2024. This is a 18-year-old male who was admitted with a diagnosis of a left-sided pneumonia. He is on room air. Saturations are 97%. Per infectious diseases, he continues on Zosyn, and azithromycin. When I saw him this morning, he was sleeping, so I did not disturb him. He was not having any respiratory distress or difficulty. Current labs include a white count of 12.2, hemoglobin 11.2, hematocrit 29.5, platelet count 293,000. Sodium 131, potassium 4.3, chloride 97, CO2 24, BUN 10, creatinine 0.7. Calcium was 8.6. The rest of his labs were reviewed. Stool cultures were positive for Salmonella species. Objective - Vital Signs Vital signs: Vital Signs Temp 98.1 F 03/19/24 07:24 Pulse 80 03/19/24 07:24 Resp 16 03/19/24 07:24 BP 124/79 03/19/24 07:24 Pulse Ox 98 03/19/24 07:24 FiO2 21 03/17/24 07:57 Intake & Output 03/18/24 03/19/24 03/19/24 18:59 06:59 18:59 Intake Total 200 Balance 200 Intake: Intake, IV Titration 200 Amount Piperacillin-Tazobactam 3 200 .375 gm In Sodium Chloride 0.9% 100 ml @ 25 mls/hr IVPB Q8H [facility] Rx#: [id number] Other: Voiding Method Toilet Toilet # Voids 1 - Exam No acute distress, oriented 3. Currently on room air. No respiratory distress. HEENT examination is grossly unremarkable. Mucous membranes are moist. No oral lesions. Neck supple. Full range of motion. No adenopathy thyromegaly or neck vein distention. Cardiovascular examination reveals regular rhythm rate. S1-S2 normal. No S3 or S4. No discernible murmur noted. Lungs reveal tattered rhonchi and crackles. Most of his adventitious lung sounds are at the left base. No wheezes. Abdomen soft bowel sounds are heard. No masses or tenderness. Extremities are intact. No cyanosis clubbing or edema. Skin is without rash or lesion. Neurologic examination is brief but nonfocal. - Labs CBC & Chem 7: 03/19/24 03:05 03/19/24 03:05 Labs: Abnormal Lab Results - Last 24 Hours (Table) 03/18/24 03/19/24 03/19/24 Range/Units 03:33 03:05 03:05 WBC 11.11 H 12.22 H (4.50-10.00) X 10*3/uL RBC 2.40 L 3.15 L (4.40-5.60) X 10*6/uL Hgb 10.0 L 11.2 L (13.0-17.0) g/dL Hct 22.8 L 29.5 L (39.6-50.0) % MCH 41.7 H 35.6 H (27.0-32.0) pg MCHC 43.9 H 38.0 H (32.0-37.0) g/dL RDW 18.0 H 16.6 H (11.5-14.5) % Immature Gran # 0.09 H 0.14 H (0.00-0.04) X 10*3/uL Neutrophils # 8.51 H (1.80-7.70) X 10*3/uL Monocytes # 1.07 H 1.04 H (0.20-1.00) X 10*3/uL Eosinophils # 0.37 H (0.04-0.35) X 10*3/uL Sodium 131 L (135-145) mmol/L Calcium 8.6 L (8.7-10.3) mg/dL Microbiology - Last 24 Hours (Table) 03/18/24 11:52 Gram Stain - Preliminary Sputum Sputum Culture - Preliminary 03/17/24 13:29 Blood Culture - Preliminary Blood 03/13/24 11:50 Blood Culture - Final Blood Assessment and Plan Assessment: Left-sided chest wall pain secondary to an acute community-acquired multilobar pneumonia. Procalcitonin 0.92. Suspect a subtype type of Legionella pneumonia. Elevated mycoplasma pneumonia IgG, IgM. Salmonella found positive in his stool culture. Febrile illness secondary to above. Leukocytosis secondary to above, improving. Hyponatremia, improved. History of marijuana use. Plan: Plan dated March 19, 2024. Clinically, the patient seems to improve each day. He is still febrile. Labs, x-rays, and medications are reviewed. The patient continues on his Zosyn and azithromycin as per infectious diseases. His Tmax was 103.2. The patient has a room air saturation of 97%. He is not manifesting any signs or symptoms of respiratory distress or difficulty. He was complaining of chest pain a few days ago but that has dissipated. Time with Patient: Less than 30
[2024-03-19 14:09] VITALS: BMI 22.7
--- NOTE | 2024-03-19 15:45 | P.PN ---
Subjective Progress Note Date: 03/18/24 Principal diagnosis: Reason for follow-up is pneumonia Patient is a 18-year-old male current everyday smoker and previous history of pneumonia presenting to the hospital for evaluation of increasing shortness of breath patient has been diagnosed sepsis and pneumonia prompted this consultation. On today's evaluation that is 03/18/2024,the patient did spike a fever of 101.2 F 7 AM patient denies having any rigors or chills he is breathing comfortably left lower chest pain has slightly decreased in intensity he could have a cough no nausea vomiting no abdominal pain no diarrhea. Patient white count is 11.11, creatinine 0.7 Objective - Vital Signs Vital signs: Vital Signs Temp 101.2 F H 03/18/24 07:20 Pulse 108 H 03/18/24 07:20 Resp 16 03/18/24 07:20 BP 128/76 03/18/24 07:20 Pulse Ox 97 03/18/24 07:20 FiO2 21 03/17/24 07:57 Intake & Output 03/17/24 03/18/24 03/18/24 18:59 06:59 18:59 Intake Total 2400 360 Balance 2400 360 Intake: Intake, IV Titration 300 Amount Azithromycin 500 mg In 250 Sodium Chloride 0.9% 250 ml @ 250 mls/hr IVPB DAILY@1600 [facility] Rx#: [id number] cefTRIAXone 2 gm In 50 Sodium Chloride 0.9% 50 ml @ 100 mls/hr IVPB Q24HR [facility] Rx#:[id number] Oral 2100 360 Other: Voiding Method Toilet # Voids 3 3 - Exam GENERAL DESCRIPTION: Young male lying in bed in no distress RESPIRATORY SYSTEM: Unlabored breathing , decreased breath sounds at bases HEART: S1 S2 regular rate and rhythm , ABDOMEN: Soft , no tenderness EXTREMITIES: No edema feet - Labs CBC & Chem 7: 03/19/24 03:05 03/19/24 03:05 Labs: Abnormal Lab Results - Last 24 Hours (Table) 03/16/24 03/18/24 Range/Units 14:39 03:33 Glucose 123 H (70-110) mg/dL Calcium 8.2 L (8.7-10.3) mg/dL AST 71 H (14-35) U/L Albumin 2.8 L (3.8-4.9) g/dL Globulin 3.4 H (1.6-3.3) g/dL Albumin/Globulin Ratio 0.82 L (1.60-3.17) Ratio Mycoplasma pneumon IgG 4.68 H (<=0.90) INDEX Mycoplasma pneumon IgM 2.57 H (<=0.90) INDEX Microbiology - Last 24 Hours (Table) 03/14/24 05:20 Stool Culture - Final Stool Salmonella species Assessment and Plan (1) Sepsis Current Visit: Yes Status: Acute Code(s): A41.9 - SEPSIS, UNSPECIFIED ORGANISM SNOMED Code(s): 04495038 (2) Pneumonia Current Visit: Yes Status: Acute Code(s): J18.9 - PNEUMONIA, UNSPECIFIED ORGANISM SNOMED Code(s): 330614577 Plan: 1patient presented hospital with sepsis in this patient who did have fever tachycardia elevated white count source is left-sided pneumonia likely community-acquired patient did have significant diarrhea as well with a question of possible Legionella. 2urine for Legionella antigen came back negative, sputum for Gram stain culture and blood cultures are so far negative, stool cultures came back positive with Salmonella species 3patient did have a CT angiogram of the chest negative for PE did not show any effusion with evidence of multifocal pneumonia on the left side and with repeat CT shows worsening of the left-sided pneumonia but no evidence of any abscess or empyema. 4patient did have persistent fever we will repeat a sputum culture and switch antibiotic to Zosyn continue with the Zithromax keeping in mind he did have mycoplasma IgM positive discussed with admitting physician but was advised to switch to Levaquin Dictation was produced using [employer] dictation software. please excuse any gramm atical, word or spelling errors. Time with Patient: Less than 30
--- NOTE | 2024-03-19 15:58 | P.PN ---
Subjective Progress Note Date: 03/19/24 Principal diagnosis: Reason for follow-up is pneumonia Patient is a 18-year-old male current everyday smoker and previous history of pneumonia presenting to the hospital for evaluation of increasing shortness of breath patient has been diagnosed sepsis and pneumonia prompted this consultation. On today's evaluation that is 03/19/2024,the patient remains to be febrile and did spike a fever of 103.2 F at midnight the patient is afebrile since then he seemed to be breathing comfortably on room air denies any worsening cough or sputum production left-sided chest pain has decreased in intensity no nausea vomiting abdominal pain or diarrhea. Patient white count is 12.22, creatinine 0.7 repeated blood and sputum cultures are pending Objective - Vital Signs Vital signs: Vital Signs Temp 98.8 F 03/19/24 12:15 Pulse 122 H 03/19/24 12:15 Resp 16 03/19/24 12:15 BP 108/65 03/19/24 12:15 Pulse Ox 95 03/19/24 12:15 FiO2 21 03/17/24 07:57 Intake & Output 03/18/24 03/19/24 03/19/24 18:59 06:59 18:59 Intake Total 200 Balance 200 Weight 65.771 kg Intake: Intake, IV Titration 200 Amount Piperacillin-Tazobactam 3 200 .375 gm In Sodium Chloride 0.9% 100 ml @ 25 mls/hr IVPB Q8H [facility] Rx#: [id number] Other: Voiding Method Toilet Toilet # Voids 1 - Labs CBC & Chem 7: 03/19/24 03:05 03/19/24 03:05 Labs: Abnormal Lab Results - Last 24 Hours (Table) 03/19/24 03/19/24 Range/Units 03:05 03:05 WBC 12.22 H (4.50-10.00) X 10*3/uL RBC 3.15 L (4.40-5.60) X 10*6/uL Hgb 11.2 L (13.0-17.0) g/dL Hct 29.5 L (39.6-50.0) % MCH 35.6 H (27.0-32.0) pg MCHC 38.0 H (32.0-37.0) g/dL RDW 16.6 H (11.5-14.5) % Immature Gran # 0.14 H (0.00-0.04) X 10*3/uL Neutrophils # 8.51 H (1.80-7.70) X 10*3/uL Monocytes # 1.04 H (0.20-1.00) X 10*3/uL Eosinophils # 0.37 H (0.04-0.35) X 10*3/uL Sodium 131 L (135-145) mmol/L Calcium 8.6 L (8.7-10.3) mg/dL Microbiology - Last 24 Hours (Table) 03/18/24 11:52 Gram Stain - Preliminary Sputum Sputum Culture - Preliminary 03/17/24 13:29 Blood Culture - Preliminary Blood 03/13/24 11:50 Blood Culture - Final Blood Assessment and Plan (1) Sepsis Current Visit: Yes Status: Acute Code(s): A41.9 - SEPSIS, UNSPECIFIED ORGANISM SNOMED Code(s): 96304203 (2) Pneumonia Current Visit: Yes Status: Acute Code(s): J18.9 - PNEUMONIA, UNSPECIFIED ORGANISM SNOMED Code(s): 306485237 Plan: 1patient presented hospital with sepsis in this patient who did have fever tachycardia elevated white count source is left-sided pneumonia likely community-acquired patient did have significant diarrhea as well with a question of possible Legionella. 2urine for Legionella antigen came back negative, sputum for Gram stain culture and blood cultures are so far negative, stool cultures came back positive with Salmonella species 3patient did have a CT angiogram of the chest negative for PE did not show any effusion with evidence of multifocal pneumonia on the left side and with repeat CT shows worsening of the left-sided pneumonia but no evidence of any abscess or empyema. 4patient did have persistent fever despite being on broad-spectrum antibiotic in form of Zosyn patient also have e mycoplasma IgM positive if mycoplasma is responsible for this pneumonia and more likely it is not responding to the Zithromax as he received about a week of Zithromax, we will go ahead and discont inue Zithromax and start the patient on Levaquin this has been discussed in detail with admitting physician on the phone Dictation was produced using [employer] dictation software. please excuse any gramm atical, word or spelling errors. Time with Patient: Less than 30
[2024-03-19] MEDS: IPRATROPIUM-ALBUTEROL 3 ML NEB INHALATION SCH (16:18)
[2024-03-19] MEDS: LEVOFLOXACIN 750MG-D5W PMX 750 MG in DEXTROSE/WATER 1 150ML.BAG IVPB SCH (17:54)
--- NOTE | 2024-03-19 22:07 | PN ---
PROGRESS NOTE DATE OF SERVICE: 03/19/2024 SUBJECTIVE: This is a 18-year-old gentleman, who was admitted with significant multilobar pneumonia. He is still having significant cough. No chest pain. No palpitations. No fever. The patient is on broad-spectrum IV antibiotics, running fever this morning. OBJECTIVE: VITAL SIGNS: Pulse is 109, blood pressure 141/76, temperature 103.2. CHEST: A few scattered rhonchi and crackles. ABDOMEN: Soft. NERVOUS SYSTEM: Nonfocal. LABORATORY DATA: WBC 12.2. Sodium is 131. ASSESSMENT: 1. Severe multilobar extensive pneumonia on the left side, possibly gram-negative, possibly mycoplasma with continued fever. 2. Salmonella from the stool. 3. Possibly immunodeficiency with diminished NK cells. 4. Leukocytosis. 5. Hyponatremia. 6. Elevated D-dimer. 7. History of vaping. RECOMMENDATIONS AND DISCUSSION: I recommend to continue current management and continue symptomatic treatment. Continue with bronchodilators. Continue with broad-spectrum antibiotics. Otherwise, I would recommend incentive spirometry. Closely follow with multiple consultants. Guarded prognosis. Further recommendations to follow. MMODL / IJN: [id number] /
[2024-03-20 09:18] LABS: BUN/Creat Ratio 20.14 Ratio (12.00-20.00); Blood Urea Nitrogen 14.1 mg/dL (9.0-27.0); Calcium 8.5 mg/dL (8.7-10.3); Carbon Dioxide 24.9 mmol/L (21.6-31.8); Chloride 98 mmol/L (96-109); Glucose 99 mg/dL (70-110); Potassium 4.7 mmol/L (3.5-5.5); Sodium 134 mmol/L (135-145)
[2024-03-20 10:16] LABS: Basophils # (A) 0.06 X 10*3/uL (0.00-0.10); Basophils % (A) 0.4 %; Eosinophils # (A) 0.32 X 10*3/uL (0.04-0.35); Eosinophils % (A) 2.3 %; HCT 33.2 % (39.6-50.0); HGB 11.5 g/dL (13.0-17.0); Lymphocytes # (A) 2.26 X 10*3/uL (0.90-5.00); Lymphocytes % (A) 16.4 %; MCH 30.8 pg (27.0-32.0); MCHC 34.6 g/dL (32.0-37.0); Mean Platelet Volume 11.4 FL (9.5-12.2); Monocytes # (A) 1.32 X 10*3/uL (0.20-1.00); Monocytes % (A) 9.6 %; NRBC Per 100 WBC 0 X 10*3/uL (0.00-0.01); Neutrophils # (A) 9.71 X 10*3/uL (1.80-7.70); Neutrophils % (A) 70.4 %; Platelet Count 334 X 10*3/uL (140-440); RBC 3.73 X 10*6/uL (4.40-5.60); RDW 13.7 % (11.5-14.5)
--- NOTE | 2024-03-20 11:33 | P.PN ---
Subjective Progress Note Date: 03/20/24 Principal diagnosis: Pneumonia. This is a very pleasant 18-year-old male patient with no significant past medical history, no home medications. He does utilize marijuana. He was here in our emergency room on January 10 2024 with complaints of nausea, vomiting and diarrhea along with shortness of breath and left-sided chest pain. He was found to have multi lobar pneumonia however the patient chose to leave AGAINST MEDICAL ADVICE from the emergency room without any medications. He states he is and prefers natural and herbal remedies versus traditional medications. However he returned to the emergency room again yesterday with worsening left- sided chest pain and shortness of breath. Chest x-ray continues to show left perihilar and lower lobe airspace opacities. No pneumothorax. Agreed to be admitted and is seen today in consultation on the regular medical floor. He is currently awake and alert in no acute distress. He is maintaining good O2 sa turations in the 90s on room air. He is afebrile. Hemodynamically stable. He did have a Tmax of 103. White count 12.3. Hemoglobin 11.5. Platelets 226. Sodium 127. Potassium 3.8. Bicarb 23. BUN 11. Creatinine 0.6. Glucose 119. Legionella screen was negative. C. difficile screen was negative. Viral screen was negative. C. difficile screen was negative. D-dimer 5.07. CT angiogram re vealed no evidence of pulmonary embolism. There is ongoing multifocal airspace opacities in the bilateral lower lobes and the left perihilar region. He has been initiated on ceftriaxone and azithromycin. Normal saline at 75 mL/h. The patient is seen today March 15, 2024 in follow-up on the regular medical floor. He is currently sitting up in a chair at the bedside. Awake and alert in no acute distress. Feeling a bit better today compared to yesterday. Still with a loose cough. Maintaining good O2 saturations in the 90s on room air. He does have a low-grade fever currently 100.7. Slightly tachycardic. Blood pressure stable. Blood, sputum and stool cultures pending. Sodium 131. Potassium 3.8. Bicarb 22. BUN 5. Creatinine 0.7. Procalcitonin 0.92. He remains on ceftriaxone. Completed azithromycin. Normal saline at 75 mL/h. The patient is seen today March 16, 2024 in follow-up on the regular medical floor. He is currently sitting up in a chair. Awake and alert in no acute distress. He is maintaining good O2 saturations in the 90s on room air. He has normal saline at 75 mL/h. He is continued on antibiotics in the form of ceftriaxone. Microbiology is negative thus far. White count 11.8. Hemoglobin 12.3. Platelets 345. Sodium 136. Potassium 4.1. Bicarb 25. BUN 8. Creatinine 0.6. Glucose 101. Chest x-ray showing left lung infiltrates with s light improvement compared to previous on 03/14/2024. The patient is seen today March 17, 2024 in follow-up on the regular medical floor. He is awake and alert in no acute distress. Sitting up at the bedside. Denies any worsening shortness of breath, cough or congestion. He continues to maintain good O2 saturations in the 90s on room air. He is continued on antibiotics in the form of ceftriaxone and azithromycin. His stool culture was positive for Salmonella. Infectious disease is on the case. He is on Xanax for anxiety. NicoDerm patch in place. Robitussin for his cough. Heparin for DVT prophylaxis. The patient is seen today March 18, 2024 in follow-up on the regular medical floor. He is currently sitting up at the bedside. Awake and alert in no acute distress. Continues to maintain good O2 saturations in the 90s on room air. He states he is feeling better today compared to yesterday. Less left sided chest discomfort. Less cough and congestion. Scan of the chest from yesterday revealed severe pneumonia throughout the left lower lobe showing interval worsening. Patchy and nodular infiltrate throughout the left upper lobe and to a lesser extent the right base is similar. No cavitary necrosis noted. Sputum culture revealed no growth. Blood culture revealed no growth. Stool culture was positive for Salmonella. Mycoplasma pneumonia IgG was high at 4.68, IgM high at 2.57. He remains on ceftriaxone and azithromycin. NicoDerm patch in place. Progress note dated March 19, 2024. This is a 18-year-old male who was admitted with a diagnosis of a left-sided pneumonia. He is on room air. Saturations are 97%. Per infectious diseases, he continues on Zosyn, and azithromycin. When I saw him this morning, he was sleeping, so I did not disturb him. He was not having any respiratory distress or difficulty. Current labs include a white count of 12.2, hemoglobin 11.2, hematocrit 29.5, platelet count 293,000. Sodium 131, potassium 4.3, chloride 97, CO2 24, BUN 10, creatinine 0.7. Calcium was 8.6. The rest of his labs were reviewed. Stool cultures were positive for Salmonella species. Progress note dated March 20, 2024. 18-year-old male admitted with a diagnosis of left-sided pneumonia. Currently is on room air. The patient is getting Zosyn, and Levaquin as per infectious diseases. No IV fluids. Clinically, the patient is very stable. White count 13.8, hemoglobin 9.5, hematocrit 33.2, platelet count 334,000. Sodium 134, potassium 4.7, chlorides 98, CO2 25, BUN 14, and creatinine 0.7. Calcium is 8.5. Objective - Vital Signs Vital signs: Vital Signs Temp 98.5 F 03/20/24 07:46 Pulse 108 H 03/20/24 08:27 Resp 16 03/20/24 07:46 BP 124/75 03/20/24 07:46 Pulse Ox 99 03/20/24 07:46 FiO2 21 03/17/24 07:57 Intake & Output 03/19/24 03/20/24 03/20/24 18:59 06:59 18:59 Intake Total 680 Balance 680 Weight 65.771 kg Intake: Intake, IV Titration 200 Amount Piperacillin-Tazobactam 3 200 .375 gm In Sodium Chloride 0.9% 100 ml @ 25 mls/hr IVPB Q8H [facility] Rx#: [id number] Oral 480 Other: Voiding Method Toilet Toilet Toilet - Exam No acute distress, oriented 3. Currently on room air. No respiratory distress. The patient is afebrile. HEENT examination is grossly unremarkable. Mucous membranes are moist. No oral lesions. Neck supple. Full range of motion. No adenopathy thyromegaly or neck vein distention. Cardiovascular examination reveals regular rhythm rate. S1-S2 normal. No S3 or S4. No discernible murmur noted. Lungs reveal tattered rhonchi and crackles. Most of his adventitious lung sounds are at the left base. No wheezes. Abdomen soft bowel sounds are heard. No masses or tenderness. Extremities are intact. No cyanosis clubbing or edema. Skin is without rash or lesion. Neurologic examination is brief but nonfocal. - Labs CBC & Chem 7: 03/20/24 03:17 03/20/24 03:17 Labs: Abnormal Lab Results - Last 24 Hours (Table) 03/20/24 03/20/24 Range/Units 03:17 03:17 WBC 13.80 H (4.50-10.00) X 10*3/uL RBC 3.73 L (4.40-5.60) X 10*6/uL Hgb 11.5 L (13.0-17.0) g/dL Hct 33.2 L (39.6-50.0) % Immature Gran # 0.13 H (0.00-0.04) X 10*3/uL Neutrophils # 9.71 H (1.80-7.70) X 10*3/uL Monocytes # 1.32 H (0.20-1.00) X 10*3/uL Sodium 134 L (135-145) mmol/L BUN/Creatinine Ratio 20.14 H (12.00-20.00) Ratio Calcium 8.5 L (8.7-10.3) mg/dL Microbiology - Last 24 Hours (Table) 03/18/24 11:52 Gram Stain - Final Sputum Sputum Culture - Final 03/17/24 13:29 Blood Culture - Preliminary Blood Assessment and Plan Assessment: Left-sided chest wall pain secondary to an acute community-acquired multilobar pneumonia. Procalcitonin 0.92. Suspect a subtype type of Legionella pneumonia. Elevated mycoplasma pneumonia IgG, IgM. Salmonella found positive in his stool culture. Febrile illness secondary to above. Leukocytosis secondary to above, improving. Hyponatremia, improved. History of marijuana use. Plan: Plan dated March 19, 2024. Clinically, the patient seems to improve each day. He is still febrile. Labs, x-rays, and medications are reviewed. The patient continues on his Zosyn and azithromycin as per infectious diseases. His Tmax was 103.2. The patient has a room air saturation of 97%. He is not manifesting any signs or symptoms of respiratory distress or difficulty. He was complaining of chest pain a few days ago but that has dissipated. Plan dated March 20, 2024. The patient continues on Zosyn and Levaquin. The patient is being followed by infectious diseases. Clinically, the patient is very stable. His most recent temperatures are in the normal range. Labs, x-rays, medications are reviewed. Hoping to discharge the patient soon, on oral antibiotics. All his culture data was negative except for Salmonella in the stool. Time with Patient: Less than 30
--- NOTE | 2024-03-20 14:16 | PN ---
PROGRESS NOTE DATE OF SERVICE: 03/20/2024 SUBJECTIVE: This is a 18-year-old gentleman admitted with severe multilobar pneumonia, possibly mycoplasma pneumonia. The patient is on Levaquin. No chest pain. No palpitation. OBJECTIVE: VITAL SIGNS: Pulse is 125, blood pressure 106/69, respirations 16. CHEST: A few scattered rhonchi and crackles. ABDOMEN: Soft. NERVOUS SYSTEM: Nonfocal. LABORATORY DATA: Noted. ASSESSMENT: 1. Severe multilobar extensive pneumonia on the left side, possibly gram-negative, possibly mycoplasma with continued fever. 2. Salmonella from the stool. 3. 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 4. Leukocytosis. 5. Hyponatremia. 6. History of vaping. RECOMMENDATIONS AND DISCUSSION: Recommend to continue current medications and continue symptomatic treatment. Otherwise, await immunofixation. Continue with antibiotics. Repeat labs. White count is still elevated. Bronchodilators. Guarded prognosis because of multiple complex medical issues. Closely follow with Infectious Disease. Further recommendations to follow. MMODL / IJN: [id number] /
--- NOTE | 2024-03-20 14:51 | P.PN ---
Subjective Progress Note Date: 03/20/24 Principal diagnosis: Reason for follow-up is pneumonia Patient is a 18-year-old male current everyday smoker and previous history of pneumonia presenting to the hospital for evaluation of increasing shortness of breath patient has been diagnosed sepsis and pneumonia prompted this consultation. On today's evaluation that is 03/20/2024, the patient overall fever pattern has improved highest temperature has been 100.4 over the last 24 hours patient mention feeling better left-sided chest pain has decreased intensity denies any worsening cough no nausea vomiting no abdominal pain and no diarrhea however did have soft bowel movement. Patient white count is 13.80, creatinine 0.7 repeat sputum is negative as well Objective - Vital Signs Vital signs: Vital Signs Temp 98.5 F 03/20/24 07:46 Pulse 108 H 03/20/24 08:27 Resp 16 03/20/24 07:46 BP 124/75 03/20/24 07:46 Pulse Ox 99 03/20/24 07:46 FiO2 21 03/17/24 07:57 Intake & Output 03/19/24 03/20/24 03/20/24 18:59 06:59 18:59 Intake Total 680 Balance 680 Weight 65.771 kg Intake: Intake, IV Titration 200 Amount Piperacillin-Tazobactam 3 200 .375 gm In Sodium Chloride 0.9% 100 ml @ 25 mls/hr IVPB Q8H [facility] Rx#: [id number] Oral 480 Other: Voiding Method Toilet Toilet - Exam GENERAL DESCRIPTION: Young male lying in bed in no distress RESPIRATORY SYSTEM: Unlabored breathing , decreased breath sounds at bases HEART: S1 S2 regular rate and rhythm , ABDOMEN: Soft , no tenderness EXTREMITIES: No edema feet - Labs CBC & Chem 7: 03/20/24 03:17 03/20/24 03:17 Labs: Abnormal Lab Results - Last 24 Hours (Table) 03/20/24 03/20/24 Range/Units 03:17 03:17 WBC 13.80 H (4.50-10.00) X 10*3/uL RBC 3.73 L (4.40-5.60) X 10*6/uL Hgb 11.5 L (13.0-17.0) g/dL Hct 33.2 L (39.6-50.0) % Immature Gran # 0.13 H (0.00-0.04) X 10*3/uL Neutrophils # 9.71 H (1.80-7.70) X 10*3/uL Monocytes # 1.32 H (0.20-1.00) X 10*3/uL Sodium 134 L (135-145) mmol/L BUN/Creatinine Ratio 20.14 H (12.00-20.00) Ratio Calcium 8.5 L (8.7-10.3) mg/dL Microbiology - Last 24 Hours (Table) 03/18/24 11:52 Gram Stain - Final Sputum Sputum Culture - Final 03/17/24 13:29 Blood Culture - Preliminary Blood Assessment and Plan (1) Sepsis Current Visit: Yes Status: Acute Code(s): A41.9 - SEPSIS, UNSPECIFIED ORGANISM SNOMED Code(s): 58987634 (2) Pneumonia Current Visit: Yes Status: Acute Code(s): J18.9 - PNEUMONIA, UNSPECIFIED ORGANISM SNOMED Code(s): 922571662 Plan: 1patient presented hospital with sepsis in this patient who did have fever tachycardia elevated white count source is left-sided pneumonia likely community-acquired patient did have significant diarrhea as well with a question of possible Legionella. 2urine for Legionella antigen came back negative, sputum for Gram stain culture and blood cultures are so far negative, stool cultures came back positive with Salmonella species 3patient did have a CT angiogram of the chest negative for PE did not show any effusion with evidence of multifocal pneumonia on the left side and with repeat CT shows worsening of the left-sided pneumonia but no evidence of any abscess or empyema. 4patient fever seem to have responded to addition of Levaquin which should be continued for now if remains to be afebrile will recommend to discontinue Zosyn and hopefully be able to finish therapy with oral Levaquin question concern answered Dictation was produced using [employer] software. please excuse any grammatical, word or spelling errors. Time with Patient: Less than 30
--- NOTE | 2024-03-21 06:46 | P.PN ---
Subjective Progress Note Date: 03/21/24 Principal diagnosis: Pneumonia. This is a very pleasant 18-year-old male patient with no significant past medical history, no home medications. He does utilize marijuana. He was here in our emergency room on January 10 2024 with complaints of nausea, vomiting and diarrhea along with shortness of breath and left-sided chest pain. He was found to have multi lobar pneumonia however the patient chose to leave AGAINST MEDICAL ADVICE from the emergency room without any medications. He states he is and prefers natural and herbal remedies versus traditional medications. However he returned to the emergency room again yesterday with worsening left- sided chest pain and shortness of breath. Chest x-ray continues to show left perihilar and lower lobe airspace opacities. No pneumothorax. Agreed to be admitted and is seen today in consultation on the regular medical floor. He is currently awake and alert in no acute distress. He is maintaining good O2 sa turations in the 90s on room air. He is afebrile. Hemodynamically stable. He did have a Tmax of 103. White count 12.3. Hemoglobin 11.5. Platelets 226. Sodium 127. Potassium 3.8. Bicarb 23. BUN 11. Creatinine 0.6. Glucose 119. Legionella screen was negative. C. difficile screen was negative. Viral screen was negative. C. difficile screen was negative. D-dimer 5.07. CT angiogram re vealed no evidence of pulmonary embolism. There is ongoing multifocal airspace opacities in the bilateral lower lobes and the left perihilar region. He has been initiated on ceftriaxone and azithromycin. Normal saline at 75 mL/h. The patient is seen today March 15, 2024 in follow-up on the regular medical floor. He is currently sitting up in a chair at the bedside. Awake and alert in no acute distress. Feeling a bit better today compared to yesterday. Still with a loose cough. Maintaining good O2 saturations in the 90s on room air. He does have a low-grade fever currently 100.7. Slightly tachycardic. Blood pressure stable. Blood, sputum and stool cultures pending. Sodium 131. Potassium 3.8. Bicarb 22. BUN 5. Creatinine 0.7. Procalcitonin 0.92. He remains on ceftriaxone. Completed azithromycin. Normal saline at 75 mL/h. The patient is seen today March 16, 2024 in follow-up on the regular medical floor. He is currently sitting up in a chair. Awake and alert in no acute distress. He is maintaining good O2 saturations in the 90s on room air. He has normal saline at 75 mL/h. He is continued on antibiotics in the form of ceftriaxone. Microbiology is negative thus far. White count 11.8. Hemoglobin 12.3. Platelets 345. Sodium 136. Potassium 4.1. Bicarb 25. BUN 8. Creatinine 0.6. Glucose 101. Chest x-ray showing left lung infiltrates with s light improvement compared to previous on 03/14/2024. The patient is seen today March 17, 2024 in follow-up on the regular medical floor. He is awake and alert in no acute distress. Sitting up at the bedside. Denies any worsening shortness of breath, cough or congestion. He continues to maintain good O2 saturations in the 90s on room air. He is continued on antibiotics in the form of ceftriaxone and azithromycin. His stool culture was positive for Salmonella. Infectious disease is on the case. He is on Xanax for anxiety. NicoDerm patch in place. Robitussin for his cough. Heparin for DVT prophylaxis. The patient is seen today March 18, 2024 in follow-up on the regular medical floor. He is currently sitting up at the bedside. Awake and alert in no acute distress. Continues to maintain good O2 saturations in the 90s on room air. He states he is feeling better today compared to yesterday. Less left sided chest discomfort. Less cough and congestion. Scan of the chest from yesterday revealed severe pneumonia throughout the left lower lobe showing interval worsening. Patchy and nodular infiltrate throughout the left upper lobe and to a lesser extent the right base is similar. No cavitary necrosis noted. Sputum culture revealed no growth. Blood culture revealed no growth. Stool culture was positive for Salmonella. Mycoplasma pneumonia IgG was high at 4.68, IgM high at 2.57. He remains on ceftriaxone and azithromycin. NicoDerm patch in place. Progress note dated March 19, 2024. This is a 18-year-old male who was admitted with a diagnosis of a left-sided pneumonia. He is on room air. Saturations are 97%. Per infectious diseases, he continues on Zosyn, and azithromycin. When I saw him this morning, he was sleeping, so I did not disturb him. He was not having any respiratory distress or difficulty. Current labs include a white count of 12.2, hemoglobin 11.2, hematocrit 29.5, platelet count 293,000. Sodium 131, potassium 4.3, chloride 97, CO2 24, BUN 10, creatinine 0.7. Calcium was 8.6. The rest of his labs were reviewed. Stool cultures were positive for Salmonella species. Progress note dated March 20, 2024. 18-year-old male admitted with a diagnosis of left-sided pneumonia. Currently is on room air. The patient is getting Zosyn, and Levaquin as per infectious diseases. No IV fluids. Clinically, the patient is very stable. White count 13.8, hemoglobin 9.5, hematocrit 33.2, platelet count 334,000. Sodium 134, potassium 4.7, chlorides 98, CO2 25, BUN 14, and creatinine 0.7. Calcium is 8.5. Progress note dated March 21, 2024. 18-year-old male admitted with a diagnosis of left-sided pneumonia. The patient is seen today in room 520. He is on room air. Saturation is 97%. His Tmax was 99.5. He continues on Zosyn and Levaquin. No blood work from today as yet. Stool cultures from March 14 were positive for Salmonella. The rest of his culture data is negative. Clinically, he feels well. Objective - Vital Signs Vital signs: Vital Signs Temp 99.5 F 03/21/24 01:51 Pulse 113 H 03/21/24 01:51 Resp 03/21/24 01:51 BP 120/68 03/21/24 01:51 Pulse Ox 97 03/21/24 01:51 FiO2 03/17/24 07:57 Intake & Output 03/20/24 03/20/24 03/21/24 06:59 18:59 06:59 Intake Total 680 350 Balance 680 350 Intake: Intake, IV Titration 200 350 Amount Levofloxacin 750Mg-D5w 150 Pmx 750 mg In Dextrose/ Water 1 150ml.bag @ 100 mls/hr IVPB Q24H [facility] Rx#: [id number] Piperacillin-Tazobactam 3 200 200 .375 gm In Sodium Chloride 0.9% 100 ml @ 25 mls/hr IVPB Q8H [facility] Rx#: [id number] Oral 480 Other: Voiding Method Toilet Toilet Toilet # Voids 3 - Exam No acute distress, oriented 3. Currently on room air. No respiratory distress. The patient is afebrile. HEENT examination is grossly unremarkable. Mucous membranes are moist. No oral lesions. Neck supple. Full range of motion. No adenopathy thyromegaly or neck vein distention. Cardiovascular examination reveals regular rhythm rate. S1-S2 normal. No S3 or S4. No discernible murmur noted. Lungs reveal tattered rhonchi and crackles. Most of his adventitious lung sounds are at the left base. No wheezes. Abdomen soft bowel sounds are heard. No masses or tenderness. Extremities are intact. No cyanosis clubbing or edema. Skin is without rash or lesion. Neurologic examination is brief but nonfocal. - Labs CBC & Chem 7: 03/20/24 03:17 03/20/24 03:17 Labs: Abnormal Lab Results - Last 24 Hours (Table) 03/20/24 03/20/24 Range/Units 03:17 03:17 WBC 13.80 H (4.50-10.00) X 10*3/uL RBC 3.73 L (4.40-5.60) X 10*6/uL Hgb 11.5 L (13.0-17.0) g/dL Hct 33.2 L (39.6-50.0) % Immature Gran # 0.13 H (0.00-0.04) X 10*3/uL Neutrophils # 9.71 H (1.80-7.70) X 10*3/uL Monocytes # 1.32 H (0.20-1.00) X 10*3/uL Sodium 134 L (135-145) mmol/L BUN/Creatinine Ratio 20.14 H (12.00-20.00) Ratio Calcium 8.5 L (8.7-10.3) mg/dL Microbiology - Last 24 Hours (Table) 03/17/24 13:29 Blood Culture - Preliminary Blood 03/18/24 11:52 Gram Stain - Final Sputum Sputum Culture - Final Assessment and Plan Assessment: Left-sided chest wall pain secondary to an acute community-acquired multilobar pneumonia. Procalcitonin 0.92. Suspect a subtype type of Legionella pneumonia. Elevated mycoplasma pneumonia IgG, IgM. Salmonella found positive in his stool culture. Febrile illness secondary to above. Leukocytosis secondary to above, improving. Hyponatremia, improved. History of marijuana use. Plan: Plan dated March 19, 2024. Clinically, the patient seems to improve each day. He is still febrile. Labs, x-rays, and medications are reviewed. The patient continues on his Zosyn and azithromycin as per infectious diseases. His Tmax was 103.2. The patient has a room air saturation of 97%. He is not manifesting any signs or symptoms of respiratory distress or difficulty. He was complaining of chest pain a few days ago but that has dissipated. Plan dated March 20, 2024. The patient continues on Zosyn and Levaquin. The patient is being followed by infectious diseases. Clinically, the patient is very stable. His most recent temperatures are in the normal range. Labs, x-rays, medications are reviewed. Hoping to discharge the patient soon, on oral antibiotics. All his culture data was negative except for Salmonella in the stool. Plan dated March 21, 2024. Patient is seen today in room 520. He is on room air. He continues on Zosyn and Levaquin as per infectious diseases. His Tmax was 99.5. No blood work today as yet. We will continue to follow. Prognosis is guarded. Clinically he is stable. Discharge planning underway. Time with Patient: Less than 30
[2024-03-21 09:39] LABS: Blood Urea Nitrogen 11.9 mg/dL (9.0-27.0); Carbon Dioxide 25.2 mmol/L (21.6-31.8); Chloride 99 mmol/L (96-109); Glucose 110 mg/dL (70-110); Potassium 5.1 mmol/L (3.5-5.5); Sodium 134 mmol/L (135-145)
[2024-03-21 09:40] LABS: Calcium 8.7 mg/dL (8.7-10.3)
[2024-03-21 10:12] LABS: Basophils # (A) 0.05 X 10*3/uL (0.00-0.10); Basophils % (A) 0.5 %; Eosinophils # (A) 0.22 X 10*3/uL (0.04-0.35); Eosinophils % (A) 2.1 %; HCT 35.7 % (39.6-50.0); HGB 11.8 g/dL (13.0-17.0); Lymphocytes # (A) 2.17 X 10*3/uL (0.90-5.00); Lymphocytes % (A) 20.5 %; MCH 29.3 pg (27.0-32.0); MCHC 33.1 g/dL (32.0-37.0); MCV 88.6 FL (80.0-97.0); Mean Platelet Volume 10.5 FL (9.5-12.2); Monocytes # (A) 1.07 X 10*3/uL (0.20-1.00); Monocytes % (A) 10.1 %; NRBC Per 100 WBC 0 X 10*3/uL (0.00-0.01); Neutrophils # (A) 7.02 X 10*3/uL (1.80-7.70); Neutrophils % (A) 66.1 %; Platelet Count 393 X 10*3/uL (140-440); RBC 4.03 X 10*6/uL (4.40-5.60); RDW 13.7 % (11.5-14.5)
--- NOTE | 2024-03-21 12:42 | CA ---
Transthoracic Echo Report Name: Andres Nunes Age: 18 Gender: M : 2005 Exam Date: 03/19/2024 10:42 Exam Location: [facility] Ht (in): 67 Wt (lb): 145 Ordering Physician: Chen Palacio Attending/Referring Phys: Security Shift Manager Lita Harvey RDCS Procedure CPT: Indications: fevers Cardiac Hx: Technical Quality: Fair Contrast 1: Total Dose (mL): Contrast 2: Total Dose (mL): MEASUREMENTS (Male / Female) Normal Values 2D ECHO LV Diastolic Diameter PLAX 3.4 cm 4.2 - 5.9 / 3.9 - 5.3 cm LV Systolic Diameter PLAX 2.4 cm IVS Diastolic Thickness 0.9 cm 0.6 - 1.0 / 0.6 - 0.9 cm LVPW Diastolic Thickness 0.8 cm 0.6 - 1.0 / 0.6 - 0.9 cm LV Relative Wall Thickness 0.5 RV Internal Dim ED PLAX 4.4 cm LA Volume 27.5 cm??? 18 - 58 / 22 - 52 cm??? LA Volume Index 15.5 cm???/m??? 16 - 28 cm???/m??? M-MODE Aortic Root Diameter MM 2.7 cm LA Systolic Diameter MM 3.5 cm LA Ao Ratio MM 1.3 AV Cusp Separation MM 2.0 cm DOPPLER AV Peak Velocity 143.9 cm/s AV Peak Gradient 8.3 mmHg AV Mean Velocity 93.1 cm/s AV Mean Gradient 4.2 mmHg AV Velocity Time Integral 18.4 cm LVOT Peak Velocity 146.8 cm/s LVOT Peak Gradient 8.6 mmHg LVOT Velocity Time Integral 23.0 cm MV Area PHT 4.6 cm??? Mitral E Point Velocity 90.6 cm/s Mitral A Point Velocity 65.5 cm/s Mitral E to A Ratio 1.4 MV Deceleration Time 165.3 ms MV E' Velocity 16.5 cm/s Mitral E to MV E' Ratio 5.5 FINDINGS Left Ventricle Normal Left ventricular size, wall thickness, systolic function with no obvious regional wall motion abnormalities. Normal Left ventricular diastolic filling pattern. Left ventricular ejection fraction is estimated at 55-60 %. Right Ventricle Normal RV size and function. Right ventricular systolic pressure within normal limits. Right Atrium Normal right atrial size. Left Atrium Normal left atrial size. Mitral Valve Structurally normal mitral valve. No mitral stenosis, regurgitation or prolapse. Aortic Valve Trileaflet aortic valve. No aortic valve stenosis or regurgitation. Tricuspid Valve Structurally normal tricuspid valve. Mild tricuspid regurgitation. Pulmonic Valve Structurally normal pulmonic valve. Pericardium Minimal pericardial effusion, thickened pericardium Aorta Normal size aortic root and proximal ascending aorta. CONCLUSIONS Diagnosis: Recurrent fevers rule out intracardiac masses vegetations as a cause of fevers Abnormal echo with thickened pericardium and a trace pericardial effusion No clear-cut masses on the valves but on the short axis 5 chamber view, there is an ill-defined density on the aortic valve, at the commissioner of [facility] and C. While this may be artifactual, it may also represent an early vegetation especially if blood cultures are positive LV size and function are normal RV size and function are normal Previewed by: Dr. Spencer Tam MD (Electronically Signed) Final Date: 21 March 2024 12:41
--- NOTE | 2024-03-21 16:09 | P.PN ---
Subjective Progress Note Date: 03/21/24 Principal diagnosis: Reason for follow-up is pneumonia Patient is a 18-year-old male current everyday smoker and previous history of pneumonia presenting to the hospital for evaluation of increasing shortness of breath patient has been diagnosed sepsis and pneumonia prompted this consultation. On today's evaluation that is 03/21/2024, Patient fever pattern has improved with a low-grade fever of 99.4 this afternoon patient is breathing more comfortably currently on room air denies having any chest pain coughing decrease intestinal hemoptysis no nausea no vomiting no abdominal pain or diarrhea. Patient white count is down to 10.68, creatinine 0.7 Objective - Vital Signs Vital signs: Vital Signs Temp 98.7 F 03/21/24 07:24 Pulse 108 H 03/21/24 11:48 Resp 18 03/21/24 08:00 BP 114/65 03/21/24 07:24 Pulse Ox 97 03/21/24 07:24 FiO2 21 03/17/24 07:57 Intake & Output 03/20/24 03/21/24 03/21/24 18:59 06:59 18:59 Intake Total 350 Balance 350 Intake: Intake, IV Titration 350 Amount Levofloxacin 750Mg-D5w 150 Pmx 750 mg In Dextrose/ Water 1 150ml.bag @ 100 mls/hr IVPB Q24H [facility] Rx#: [id number] Piperacillin-Tazobactam 3 200 .375 gm In Sodium Chloride 0.9% 100 ml @ 25 mls/hr IVPB Q8H [facility] Rx#: [id number] Other: Voiding Method Toilet Toilet Toilet # Voids 3 - Exam GENERAL DESCRIPTION: Young male lying in bed in no distress RESPIRATORY SYSTEM: Unlabored breathing , decreased breath sounds at bases HEART: S1 S2 regular rate and rhythm , ABDOMEN: Soft , no tenderness EXTREMITIES: No edema feet - Labs CBC & Chem 7: 03/21/24 03:35 03/21/24 03:35 Labs: Abnormal Lab Results - Last 24 Hours (Table) 03/21/24 03/21/24 Range/Units 03:35 03:35 WBC 10.60 H (4.50-10.00) X 10*3/uL RBC 4.03 L (4.40-5.60) X 10*6/uL Hgb 11.8 L (13.0-17.0) g/dL Hct 35.7 L (39.6-50.0) % Immature Gran # 0.07 H (0.00-0.04) X 10*3/uL Monocytes # 1.07 H (0.20-1.00) X 10*3/uL Sodium 134 L (135-145) mmol/L Microbiology - Last 24 Hours (Table) 03/17/24 13:29 Blood Culture - Preliminary Blood Assessment and Plan (1) Sepsis Current Visit: Yes Status: Acute Code(s): A41.9 - SEPSIS, UNSPECIFIED ORGANISM SNOMED Code(s): 71023761 (2) Pneumonia Current Visit: Yes Status: Acute Code(s): J18.9 - PNEUMONIA, UNSPECIFIED ORGANISM SNOMED Code(s): 541260095 (3) Salmonella Current Visit: Yes Status: Acute Code(s): A02.9 - SALMONELLA INFECTION, UNSPECIFIED SNOMED Code(s): 564550186 Plan: 1patient presented hospital with sepsis in this patient who did have fever tachycardia elevated white count source is left-sided pneumonia likely community-acquired patient did have significant diarrhea as well with a question of possible Legionella. 2urine for Legionella antigen came back negative, sputum for Gram stain culture and blood cultures are so far negative, stool cultures came back positive with Salmonella species 3patient did have a CT angiogram of the chest negative for PE did not show any effusion with evidence of multifocal pneumonia on the left side and with repeat CT shows worsening of the left-sided pneumonia but no evidence of any abscess or empyema. 4patient fever seem to have responded to addition of Levaquin will be continued and will discontinue Zosyn monitor clinical course closely Dictation was produced using [employer] dictation software. please excuse any grammatical, word or spelling errors. Time with Patient: Less than 30
--- NOTE | 2024-03-21 21:31 | PN ---
PROGRESS NOTE DATE OF SERVICE: 03/21/2024 SUBJECTIVE: This is a 18-year-old gentleman admitted with severe multifocal pneumonia, possible mycoplasma pneumonia, is also immunosuppressed. No chest pain. No palpitation. OBJECTIVE: VITAL SIGNS: Pulse is 107, blood pressure 140/62, respirations 20. CHEST: A few scattered rhonchi and crackles on the left side. ABDOMEN: Soft. LABORATORY DATA: WBC 10.6. ASSESSMENT: 1. Severe multilobar extensive pneumonia on the left side possibly gram-negative, possibly mycoplasma with continued fever. 2. Salmonella from the stool. 3. 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 4. Leukocytosis. 5. History of vaping. RECOMMENDATIONS: Recommend to continue current management and continue symptomatic treatment. Continue with antibiotics. Repeat chest x-ray. Repeat labs. Closely monitor. Further recommendations to follow. MMODL / IJN: [id number] /
--- NOTE | 2024-03-22 07:35 | XR ---
EXAMINATION TYPE: XR chest 1V portable DATE OF EXAM: 03/22/2024 COMPARISON: 03/16/2024 INDICATION: Pneumonia TECHNIQUE: Single frontal view of the chest is obtained. FINDINGS: The heart size is normal. The pulmonary vasculature is normal. There is an infiltrate in the right upper lobe. Mild infiltrate at the left posterior lung base. Fin dings are improved over the interval. Continued follow-up is recommended IMPRESSION: 1. Right upper and lower lobe infiltrates improving from comparison. Continued follow-up is recommend ed [facility], , 03/22/2024 7:33 AM
[2024-03-22 10:04] LABS: BUN/Creat Ratio 18.57 Ratio (12.00-20.00); Calcium 8.4 mg/dL (8.7-10.3); Carbon Dioxide 24.9 mmol/L (21.6-31.8); Chloride 97 mmol/L (96-109); Glucose 113 mg/dL (70-110); Potassium 4.7 mmol/L (3.5-5.5); Sodium 133 mmol/L (135-145)
[2024-03-22 11:23] LABS: Basophils # (A) 0.05 X 10*3/uL (0.00-0.10); Basophils % (A) 0.5 %; Eosinophils # (A) 0.23 X 10*3/uL (0.04-0.35); Eosinophils % (A) 2.2 %; HCT 35.1 % (39.6-50.0); HGB 11.1 g/dL (13.0-17.0); Lymphocytes # (A) 1.59 X 10*3/uL (0.90-5.00); Lymphocytes % (A) 15.3 %; MCH 28.2 pg (27.0-32.0); MCHC 31.6 g/dL (32.0-37.0); MCV 89.3 FL (80.0-97.0); Mean Platelet Volume 10.7 FL (9.5-12.2); Monocytes # (A) 1.14 X 10*3/uL (0.20-1.00); Monocytes % (A) 10.9 %; NRBC Per 100 WBC 0 X 10*3/uL (0.00-0.01); Neutrophils # (A) 7.33 X 10*3/uL (1.80-7.70); Neutrophils % (A) 70.3 %; Platelet Count 366 X 10*3/uL (140-440); RBC 3.93 X 10*6/uL (4.40-5.60); RDW 13.5 % (11.5-14.5); WBC 10.42 X 10*3/uL (4.50-10.00)
--- NOTE | 2024-03-22 13:11 | P.PN ---
Subjective Progress Note Date: 03/22/24 Principal diagnosis: Pneumonia. This is a very pleasant 18-year-old male patient with no significant past medical history, no home medications. He does utilize marijuana. He was here in our emergency room on January 10 2024 with complaints of nausea, vomiting and diarrhea along with shortness of breath and left-sided chest pain. He was found to have multi lobar pneumonia however the patient chose to leave AGAINST MEDICAL ADVICE from the emergency room without any medications. He states he is and prefers natural and herbal remedies versus traditional medications. However he returned to the emergency room again yesterday with worsening left- sided chest pain and shortness of breath. Chest x-ray continues to show left perihilar and lower lobe airspace opacities. No pneumothorax. Agreed to be admitted and is seen today in consultation on the regular medical floor. He is currently awake and alert in no acute distress. He is maintaining good O2 sa turations in the 90s on room air. He is afebrile. Hemodynamically stable. He did have a Tmax of 103. White count 12.3. Hemoglobin 11.5. Platelets 226. Sodium 127. Potassium 3.8. Bicarb 23. BUN 11. Creatinine 0.6. Glucose 119. Legionella screen was negative. C. difficile screen was negative. Viral screen was negative. C. difficile screen was negative. D-dimer 5.07. CT angiogram re vealed no evidence of pulmonary embolism. There is ongoing multifocal airspace opacities in the bilateral lower lobes and the left perihilar region. He has been initiated on ceftriaxone and azithromycin. Normal saline at 75 mL/h. The patient is seen today March 15, 2024 in follow-up on the regular medical floor. He is currently sitting up in a chair at the bedside. Awake and alert in no acute distress. Feeling a bit better today compared to yesterday. Still with a loose cough. Maintaining good O2 saturations in the 90s on room air. He does have a low-grade fever currently 100.7. Slightly tachycardic. Blood pressure stable. Blood, sputum and stool cultures pending. Sodium 131. Potassium 3.8. Bicarb 22. BUN 5. Creatinine 0.7. Procalcitonin 0.92. He remains on ceftriaxone. Completed azithromycin. Normal saline at 75 mL/h. The patient is seen today March 16, 2024 in follow-up on the regular medical floor. He is currently sitting up in a chair. Awake and alert in no acute distress. He is maintaining good O2 saturations in the 90s on room air. He has normal saline at 75 mL/h. He is continued on antibiotics in the form of ceftriaxone. Microbiology is negative thus far. White count 11.8. Hemoglobin 12.3. Platelets 345. Sodium 136. Potassium 4.1. Bicarb 25. BUN 8. Creatinine 0.6. Glucose 101. Chest x-ray showing left lung infiltrates with s light improvement compared to previous on 03/14/2024. The patient is seen today March 17, 2024 in follow-up on the regular medical floor. He is awake and alert in no acute distress. Sitting up at the bedside. Denies any worsening shortness of breath, cough or congestion. He continues to maintain good O2 saturations in the 90s on room air. He is continued on antibiotics in the form of ceftriaxone and azithromycin. His stool culture was positive for Salmonella. Infectious disease is on the case. He is on Xanax for anxiety. NicoDerm patch in place. Robitussin for his cough. Heparin for DVT prophylaxis. The patient is seen today March 18, 2024 in follow-up on the regular medical floor. He is currently sitting up at the bedside. Awake and alert in no acute distress. Continues to maintain good O2 saturations in the 90s on room air. He states he is feeling better today compared to yesterday. Less left sided chest discomfort. Less cough and congestion. Scan of the chest from yesterday revealed severe pneumonia throughout the left lower lobe showing interval worsening. Patchy and nodular infiltrate throughout the left upper lobe and to a lesser extent the right base is similar. No cavitary necrosis noted. Sputum culture revealed no growth. Blood culture revealed no growth. Stool culture was positive for Salmonella. Mycoplasma pneumonia IgG was high at 4.68, IgM high at 2.57. He remains on ceftriaxone and azithromycin. NicoDerm patch in place. Progress note dated March 19, 2024. This is a 18-year-old male who was admitted with a diagnosis of a left-sided pneumonia. He is on room air. Saturations are 97%. Per infectious diseases, he continues on Zosyn, and azithromycin. When I saw him this morning, he was sleeping, so I did not disturb him. He was not having any respiratory distress or difficulty. Current labs include a white count of 12.2, hemoglobin 11.2, hematocrit 29.5, platelet count 293,000. Sodium 131, potassium 4.3, chloride 97, CO2 24, BUN 10, creatinine 0.7. Calcium was 8.6. The rest of his labs were reviewed. Stool cultures were positive for Salmonella species. Progress note dated March 20, 2024. 18-year-old male admitted with a diagnosis of left-sided pneumonia. Currently is on room air. The patient is getting Zosyn, and Levaquin as per infectious diseases. No IV fluids. Clinically, the patient is very stable. White count 13.8, hemoglobin 9.5, hematocrit 33.2, platelet count 334,000. Sodium 134, potassium 4.7, chlorides 98, CO2 25, BUN 14, and creatinine 0.7. Calcium is 8.5. Progress note dated March 21, 2024. 18-year-old male admitted with a diagnosis of left-sided pneumonia. The patient is seen today in room 520. He is on room air. Saturation is 97%. His Tmax was 99.5. He continues on Zosyn and Levaquin. No blood work from today as yet. Stool cultures from March 14 were positive for Salmonella. The rest of his culture data is negative. Clinically, he feels well. Progress note dated March 22, 2024. 18-year-old male admitted with a diagnosis of left-sided pneumonia. The patient is seen in room 520. He is on room air. He is receiving saline at 20 cc an hour. He is currently just on Levaquin. Current labs include a white count 10.42, hemoglobin 11.1, macro 35.1, and a platelet count of 366,000. Sodium 133, potassium 4.7, chloride 97, CO2 25, BUN 13, creatinine 0.7. Calcium is 8.4. Chest x-ray shows improving infiltrates. Objective - Vital Signs Vital signs: Vital Signs Temp 99.0 F 03/22/24 07:39 Pulse 128 H 03/22/24 11:33 Resp 15 03/22/24 08:25 BP 116/69 03/22/24 07:39 Pulse Ox 96 03/22/24 07:39 FiO2 21 03/17/24 07:57 Intake & Output 03/21/24 03/22/24 03/22/24 18:59 06:59 18:59 Other: Voiding Method Toilet Toilet Toilet # Voids 10 3 # Bowel Movements 1 - Exam No acute distress, oriented 3. Currently on room air. No respiratory distress. The patient is afebrile. HEENT examination is grossly unremarkable. Mucous membranes are moist. No oral lesions. Neck supple. Full range of motion. No adenopathy thyromegaly or neck vein distention. Cardiovascular examination reveals regular rhythm rate. S1-S2 normal. No S3 or S4. No discernible murmur noted. Lungs reveal tattered rhonchi and crackles. Most of his adventitious lung sounds are at the left base. No wheezes. Abdomen soft bowel sounds are heard. No masses or tenderness. Extremities are intact. No cyanosis clubbing or edema. Skin is without rash or lesion. Neurologic examination is brief but nonfocal. - Labs CBC & Chem 7: 03/22/24 03:52 03/22/24 03:52 Labs: Abnormal Lab Results - Last 24 Hours (Table) 03/22/24 03/22/24 Range/Units 03:52 03:52 WBC 10.42 H (4.50-10.00) X 10*3/uL RBC 3.93 L (4.40-5.60) X 10*6/uL Hgb 11.1 L (13.0-17.0) g/dL Hct 35.1 L (39.6-50.0) % MCHC 31.6 L (32.0-37.0) g/dL Immature Gran # 0.08 H (0.00-0.04) X 10*3/uL Monocytes # 1.14 H (0.20-1.00) X 10*3/uL Sodium 133 L (135-145) mmol/L Glucose 113 H (70-110) mg/dL Calcium 8.4 L (8.7-10.3) mg/dL Assessment and Plan Assessment: Left-sided chest wall pain secondary to an acute community-acquired multilobar pneumonia. Procalcitonin 0.92. Suspect a subtype type of Legionella pneumonia. Elevated mycoplasma pneumonia IgG, IgM. Salmonella found positive in his stool culture. Febrile illness secondary to above. Leukocytosis secondary to above, improving. Hyponatremia, improved. History of marijuana use. Plan: Plan dated March 19, 2024. Clinically, the patient seems to improve each day. He is still febrile. Labs, x-rays, and medications are reviewed. The patient continues on his Zosyn and azithromycin as per infectious diseases. His Tmax was 103.2. The patient has a room air saturation of 97%. He is not manifesting any signs or symptoms of respiratory distress or difficulty. He was complaining of chest pain a few days ago but that has dissipated. Plan dated March 20, 2024. The patient continues on Zosyn and Levaquin. The patient is being followed by infectious diseases. Clinically, the patient is very stable. His most recent temperatures are in the normal range. Labs, x-rays, medications are reviewed. Hoping to discharge the patient soon, on oral antibiotics. All his culture data was negative except for Salmonella in the stool. Plan dated March 21, 2024. Patient is seen today in room 520. He is on room air. He continues on Zosyn and Levaquin as per infectious diseases. His Tmax was 99.5. No blood work today as yet. We will continue to follow. Prognosis is guarded. Clinically he is stable. Discharge planning underway. Plan dated March 22, 2024. The patient continues to have low-grade temperatures. Clinically he is improved. He continues on Levaquin. Room air saturation is between 96 to 98%. No chest pain. Clinically, the patient appears to be doing better, and discharge planning is underway. We will continue to follow. Chest x-ray shows improvement. Time with Patient: Less than 30
--- NOTE | 2024-03-22 16:34 | P.PN ---
Subjective Progress Note Date: 03/22/24 Principal diagnosis: Reason for follow-up is pneumonia Patient is a 18-year-old male current everyday smoker and previous history of pneumonia presenting to the hospital for evaluation of increasing shortness of breath patient has been diagnosed sepsis and pneumonia prompted this consultation. On today's evaluation that is 03/22/2024, patient has been afebrile, patient is breathing comfortably and is currently on room air, patient denies having any chest pain but did have a cough with increasing sputum production no nausea vomiting no abdominal pain or diarrhea mention feeling better. The patient white count is 10.42, creatinine 0.7 Objective - Vital Signs Vital signs: Vital Signs Temp 98.7 F 03/22/24 13:02 Pulse 139 H 03/22/24 13:02 Resp 16 03/22/24 13:02 BP 103/64 03/22/24 13:02 Pulse Ox 95 03/22/24 13:02 FiO2 21 03/17/24 07:57 Intake & Output 03/21/24 03/22/24 03/22/24 18:59 06:59 18:59 Other: Voiding Method Toilet Toilet Toilet # Voids 10 3 # Bowel Movements 1 - Exam GENERAL DESCRIPTION: Young male lying in bed in no distress RESPIRATORY SYSTEM: Unlabored breathing , decreased breath sounds at bases HEART: S1 S2 regular rate and rhythm , ABDOMEN: Soft , no tenderness EXTREMITIES: No edema feet - Labs CBC & Chem 7: 03/22/24 03:52 03/22/24 03:52 Labs: Abnormal Lab Results - Last 24 Hours (Table) 03/22/24 03/22/24 Range/Units 03:52 03:52 WBC 10.42 H (4.50-10.00) X 10*3/uL RBC 3.93 L (4.40-5.60) X 10*6/uL Hgb 11.1 L (13.0-17.0) g/dL Hct 35.1 L (39.6-50.0) % MCHC 31.6 L (32.0-37.0) g/dL Immature Gran # 0.08 H (0.00-0.04) X 10*3/uL Monocytes # 1.14 H (0.20-1.00) X 10*3/uL Sodium 133 L (135-145) mmol/L Glucose 113 H (70-110) mg/dL Calcium 8.4 L (8.7-10.3) mg/dL Assessment and Plan (1) Sepsis Current Visit: Yes Status: Acute Code(s): A41.9 - SEPSIS, UNSPECIFIED ORGANISM SNOMED Code(s): 71329519 (2) Pneumonia Current Visit: Yes Status: Acute Code(s): J18.9 - PNEUMONIA, UNSPECIFIED ORGANISM SNOMED Code(s): 337709420 (3) Salmonella Current Visit: Yes Status: Acute Code(s): A02.9 - SALMONELLA INFECTION, UNSPECIFIED SNOMED Code(s): 653033601 Plan: 1patient presented hospital with sepsis in this patient who did have fever ta chycardia elevated white count source is left-sided pneumonia likely community- acquired patient did have significant diarrhea as well with a question of possible Legionella. 2urine for Legionella antigen came back negative, sputum for Gram stain culture and blood cultures are so far negative, stool cultures came back positive with Salmonella species 3patient did have a CT angiogram of the chest negative for PE did not show any effusion with evidence of multifocal pneumonia on the left side and with repeat CT shows worsening of the left-sided pneumonia but no evidence of any abscess or empyema. 4patient fever seem to have responded to addition of Levaquin which will be continued can be transition to p.o. for another 10 days on discharge and close outpatient follow-up Dictation was produced using [employer] dictation software. please excuse any grammatical, word or spelling errors. Time with Patient: Less than 30
--- NOTE | 2024-03-22 21:40 | PN ---
PROGRESS NOTE DATE OF SERVICE: 03/22/2024 This is a 18-year-old gentleman admitted with severe multifocal pneumonia, possible mycoplasma pneumonia, is being closely monitored. No chest pain. No palpitations. The patient is on broad-spectrum antibiotics. PHYSICAL EXAMINATION: VITAL SIGNS: Pulse is 139, blood pressure 100/36, respirations 16. CHEST: Few scattered rhonchi. ABDOMEN: Soft. LABORATORY DATA: Noted. 2D echo showed trace pericardial effusion. ASSESSMENT: 1. Multilobar extensive pneumonia with left-sided possibly gram-negative possibly mycoplasma with continued fever and slow response. 2. Possible myopericarditis and trace pericardial effusion. 3. Salmonella from the stool. 4. 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 5. Leukocytosis. 6. History of vaping. RECOMMENDATIONS: Recommend to continue current management and continue symptomatic treatment. Continue with antibiotics. Closely follow with multiple consultants. Prognosis extremely guarded because of the multiple complex medical issues. Serum immunoglobin is still pending. Further recommendations to follow. MMODL / IJN: [id number] /
[2024-03-23 01:43] VITALS: RESP 16
[2024-03-23 07:30] VITALS: BP 101/65; TEMP 99.7
[2024-03-23 07:46] VITALS: PULSE 110
--- NOTE | 2024-03-23 10:26 | P.PN ---
Progress Note - Text Progress Note Date: 03/23/24 Patient will require nebulizer on discharge as patient has history of smoking and uses a vape and also has had failure of outpatient treatment for pneumonia and is mycoplasma positive CAP. Patient is doing DuoNeb treatments 4 times daily and as needed
[2024-03-23] MEDS: LEVOFLOXACIN 750 MG TAB PO SCH (15:03)
--- NOTE | 2024-03-23 19:01 | P.PN ---
Subjective Progress Note Date: 03/23/24 This is a very pleasant 18-year-old male patient with no significant past medical history, no home medications. He does utilize marijuana. He was here in our emergency room on January 10 2024 with complaints of nausea, vomiting and diarrhea along with shortness of breath and left-sided chest pain. He was found to have multi lobar pneumonia however the patient chose to leave AGAINST MEDICAL ADVICE from the emergency room without any medications. He states he is and prefers natural and herbal remedies versus traditional medications. However he returned to the emergency room again yesterday with worsening left- sided chest pain and shortness of breath. Chest x-ray continues to show left perihilar and lower lobe airspace opacities. No pneumothorax. Agreed to be admitted and is seen today in consultation on the regular medical floor. He is currently awake and alert in no acute distress. He is maintaining good O2 saturations in the 90s on room air. He is afebrile. Hemodynamically stable. He did have a Tmax of 103. White count 12.3. Hemoglobin 11.5. Platelets 226. Sodium 127. Potassium 3.8. Bicarb 23. BUN 11. Creatinine 0.6. Glucose 119. Legionella screen was negative. C. difficile screen was negative. Viral screen was negative. C. difficile screen was negative. D-dimer 5.07. CT angiogram revealed no evidence of pulmonary embolism. There is ongoing multifocal airspace opacities in the bilateral lower lobes and the left perihilar region. He has been initiated on ceftriaxone and azithromycin. Normal saline at 75 mL/h. The patient is seen today March 15, 2024 in follow-up on the regular medical floor. He is currently sitting up in a chair at the bedside. Awake and alert in no acute distress. Feeling a bit better today compared to yesterday. Still with a loose cough. Maintaining good O2 saturations in the 90s on room air. He does have a low-grade fever currently 100.7. Slightly tachycardic. Blood pressure stable. Blood, sputum and stool cultures pending. Sodium 131. Potassium 3.8. Bicarb 22. BUN 5. Creatinine 0.7. Procalcitonin 0.92. He remains on ceftriaxone. Completed azithromycin. Normal saline at 75 mL/h. The patient is seen today March 16, 2024 in follow-up on the regular medical floor. He is currently sitting up in a chair. Awake and alert in no acute distress. He is maintaining good O2 saturations in the 90s on room air. He has normal saline at 75 mL/h. He is continued on antibiotics in the form of ceftriaxone. Microbiology is negative thus far. White count 11.8. Hemoglobin 12.3. Platelets 345. Sodium 136. Potassium 4.1. Bicarb 25. BUN 8. Creatinine 0.6. Glucose 101. Chest x-ray showing left lung infiltrates with slight improvement compared to previous on 03/14/2024. The patient is seen today March 17, 2024 in follow-up on the regular medical floor. He is awake and alert in no acute distress. Sitting up at the bedside. Denies any worsening shortness of breath, cough or congestion. He continues to maintain good O2 saturations in the 90s on room air. He is continued on antibiotics in the form of ceftriaxone and azithromycin. His stool culture was positive for Salmonella. Infectious disease is on the case. He is on Xanax for anxiety. NicoDerm patch in place. Robitussin for his cough. Heparin for DVT prophylaxis. The patient is seen today March 18, 2024 in follow-up on the regular medical floor. He is currently sitting up at the bedside. Awake and alert in no acute distress. Continues to maintain good O2 saturations in the 90s on room air. He states he is feeling better today compared to yesterday. Less left sided chest discomfort. Less cough and congestion. Scan of the chest from yesterday revealed severe pneumonia throughout the left lower lobe showing interval worsening. Patchy and nodular infiltrate throughout the left upper lobe and to a lesser extent the right base is similar. No cavitary necrosis noted. Sputum culture revealed no growth. Blood culture revealed no growth. Stool culture was positive for Salmonella. Mycoplasma pneumonia IgG was high at 4.68, IgM high at 2.57. He remains on ceftriaxone and azithromycin. NicoDerm patch in place. Progress note dated March 19, 2024. This is a 18-year-old male who was admitted with a diagnosis of a left-sided pneumonia. He is on room air. Saturations are 97%. Per infectious diseases, he continues on Zosyn, and azithromycin. When I saw him this morning, he was sleeping, so I did not disturb him. He was not having any respiratory distress or difficulty. Current labs include a white count of 12.2, hemoglobin 11.2, hematocrit 29.5, platelet count 293,000. Sodium 131, potassium 4.3, chloride 97, CO2 24, BUN 10, creatinine 0.7. Calcium was 8.6. The rest of his labs were reviewed. Stool cultures were positive for Salmonella species. Progress note dated March 20, 2024. 18-year-old male admitted with a diagnosis of left-sided pneumonia. Currently is on room air. The patient is getting Zosyn, and Levaquin as per infectious diseases. No IV fluids. Clinically, the patient is very stable. White count 13.8, hemoglobin 9.5, hematocrit 33.2, platelet count 334,000. Sodium 134, potassium 4.7, chlorides 98, CO2 25, BUN 14, and creatinine 0.7. Calcium is 8.5. Progress note dated March 21, 2024. 18-year-old male admitted with a diagnosis of left-sided pneumonia. The patient is seen today in room 520. He is on room air. Saturation is 97%. His Tmax was 99.5. He continues on Zosyn and Levaquin. No blood work from today as yet. Stool cultures from March 14 were positive for Salmonella. The rest of his culture data is negative. Clinically, he feels well. Progress note dated March 22, 2024. 18-year-old male admitted with a diagnosis of left-sided pneumonia. The patient is seen in room 520. He is on room air. He is receiving saline at 20 cc an hour. He is currently just on Levaquin. Current labs include a white count 10.42, hemoglobin 11.1, macro 35.1, and a platelet count of 366,000. Sodium 133 , potassium 4.7, chloride 97, CO2 25, BUN 13, creatinine 0.7. Calcium is 8.4. Chest x-ray shows improving infiltrates. 03/23/2024, the patient is being seen for a follow-up. The patient is on room air oxygen. He has no respiratory difficulties. Ambulating. No pleurisy or hemoptysis. The patient will complete his outpatient course of antibiotics with Levaquin. No nausea vomiting or abdominal pain. Labs were reviewed. No labs from today. Most recent labs are from yesterday. No nausea. No vomiting Abdominal pain. No other complaints otherwise. Objective - Vital Signs Vital signs: Vital Signs Temp 99.7 F H 03/23/24 07:07 Pulse 110 H 03/23/24 07:45 Resp 16 03/23/24 07:07 BP 101/65 03/23/24 07:07 Pulse Ox 95 03/23/24 07:07 FiO2 21 03/17/24 07:57 Intake & Output 03/22/24 03/23/24 03/23/24 18:59 06:59 18:59 Intake Total 240 Balance 240 Intake: Oral 240 Other: Voiding Method Toilet # Voids 3 - Exam No acute distress, oriented 3. Currently on room air. No respiratory distress. The patient is afebrile. HEENT examination is grossly unremarkable. Mucous membranes are moist. No oral lesions. Neck supple. Full range of motion. No adenopathy thyromegaly or neck vein distention. Cardiovascular examination reveals regular rhythm rate. S1-S2 normal. No S3 or S4. No discernible murmur noted. Lungs reveal tattered rhonchi and crackles. Most of his adventitious lung sounds are at the left base. No wheezes. Abdomen soft bowel sounds are heard. No masses or tenderness. Extremities are intact. No cyanosis clubbing or edema. Skin is without rash or lesion. Neurologic examination is brief but nonfocal. - Labs CBC & Chem 7: 03/22/24 03:52 03/22/24 03:52 Labs: Abnormal Lab Results - Last 24 Hours (Table) 03/22/24 Range/Units 03:52 IgG 1783.0 H (700.0-1600.0) mg/dL IgM 429.0 H (40.0-280.0) mg/dL IgE 199.00 H (0.00-114.00) IU/mL Microbiology - Last 24 Hours (Table) 03/17/24 13:29 Blood Culture - Final Blood Assessment and Plan Plan: Left-sided chest wall pain secondary to an acute community-acquired multilobar pneumonia. Procalcitonin 0.92. Suspect a subtype type of Legionella pneumonia. Elevated mycoplasma pneumonia IgG, IgM. Salmonella found positive in his stool culture. Febrile illness secondary to above. Leukocytosis secondary to above, improving. Hyponatremia, improved. History of marijuana use. Plan: Clinically improving and the patient is feeling much better. The patient should be able to discharge home today and complete the course of Levaquin to be foll owed up on outpatient basis.
--- NOTE | 2024-03-24 10:08 | P.DS ---
Providers Date of admission: 03/13/24 13:51 Expected date of discharge: 03/23/24 Attending physician: Conrado Soto MD Consults: 03/13/24 13:25 Consult Physician Routine Consulting Provider: Gokul Ojeda Consult Reason/Comments: Pneumonia Do you want consulting provider notified?: Yes 03/13/24 13:58 Consult Physician Routine Consulting Provider: Javier Elkins Consult Reason/Comments: Pneumonia Do you want consulting provider notified?: Yes Primary care physician: Stated None Hospital Course: Final diagnosis Multilobar extensive pneumonia with left-sided possibly gram-negative possibly mycoplasma with positive IgG and IgM with continued fever and slow response with failure of outpatient treatment Possible myopericarditis and trace pericardial effusion Salmonella from the stool Possible immunodeficiency with diminished NK cells Leukocytosis, improving History of vaping GI prophylaxis DVT prophylaxis Full code Discharge disposition Patient is being discharged in a stable condition with guarded prognosis to home . Patient will follow-up with Dr. Blackwell to establish in the outpatient setting upon discharge. Patient is to continue with oral Levaquin and a prednisone taper with breathing treatments and outpatient follow-up with infectious disease as scheduled. Total time taken is greater than 35 minutes. Hospital course This is a 18-year-old male who was recently admitted with increased shortness of breath with failure of outpatient treatment being closely monitored with pulmonary and infectious disease with concerns of possible mycoplasma pneumonia. Patient had been on antibiotics sent home came back and then left AGAINST MEDICAL ADVICE and came back and admitted for pneumonia started on antibiotics. Patient continued to have fevers and slow response with infectious disease following making adjustments to medications. Patient showing clinical improvement on Levaquin and will continue Levaquin 750 daily for the next 10 days with close outpatient follow-up with infectious disease. Patient provided resources on discharge to follow-up with her primary care provider as he does not have a family physician at this time. Patient to continue on breathing treatments and inhalers along with a steroid taper on discharge. Strongly encouraged complete tobacco cessation as well as vaping cessation. Refrain from any marijuana use or exposure. Currently no reports of chest pain, denies shortness of breath, or palpitations. Patient is afebrile. No reports of nausea or vomiting and patient is tolerating diet. Patient will be discharged home today. Guarded prognosis Physical exam: Gen: This is a 18-year-old male who is awake, alert and oriented x 3, thin built, well-developed HEENT: Head is atraumatic, normocephalic. Pupils equal, round. Sclerae is anicteric. NECK: Supple. No JVD. No lymphadenopathy. No thyromegaly. LUNGS: Diminished breath sounds bilaterally otherwise clear to auscultation. No wheezes, coarse rhonchi. Bronchospastic on exam. No intercostal retractions. HEART: Regular rate and rhythm. No murmur. ABDOMEN: Soft. Thin. Bowel sounds are present. No masses. No tenderness. EXTREMITIES: No pedal edema. No calf tenderness. NEUROLOGICAL: Patient is awake, alert and oriented x3. Cranial nerves 2 through 12 are grossly intact. Please refer to medication reconciliation sheet for a list of medications. The impression and plan of care has been dictated by Chen Palacio, Nurse Practitioner as directed. Dr. Damien MD I have performed a history and examination and MDM of this patient, discussed the same with the dictator, and agree with the dictator's assessment and plan as written ,documented as a scribe. Based on total visit time, I have performed more than 50% of the visit. Patient Condition at Discharge: Fair Plan - Discharge Summary Discharge Rx Participant: Yes New Discharge Prescriptions: New Ipratropium-Albuterol Nebulize [Duoneb 0.5 mg-3 mg/3 ml Soln] 3 ml INHALATION RT-TID #60 each Levofloxacin [Levaquin] 750 mg PO DAILY@1700 10 Days #10 tab Zinc Sulfate [Orazinc] 220 mg PO DAILY 15 Days #15 cap Pantoprazole [Protonix] 40 mg PO AC-BRKFST #14 tab Nicotine 14Mg/24Hr Patch [Habitrol] 1 patch TRANSDERM DAILY #30 patch Acetaminophen Tab [Tylenol] 650 mg PO Q4HR PRN tab PRN Reason: Fever And/ Or Pain Albuterol Inhaler [Ventolin Hfa Inhaler] 2 puff INHALATION Q6H PRN 30 Days #1 each PRN Reason: Shortness Of Breath predniSONE See Taper PO DIRECTED 6 Days #12 tab Discharge Medication List Acetaminophen Tab [Tylenol] 650 mg PO Q4HR PRN tab 03/23/24 [Rx] Albuterol Inhaler [Ventolin Hfa Inhaler] 2 puff INHALATION Q6H PRN 30 Days #1 each 03/23/24 [Rx] Ipratropium-Albuterol Nebulize [Duoneb 0.5 mg-3 mg/3 ml Soln] 3 ml INHALATION RT-TID #60 each 03/23/24 [Rx] Levofloxacin [Levaquin] 750 mg PO DAILY@1700 10 Days #10 tab 03/23/24 [Rx] Nicotine 14Mg/24Hr Patch [Habitrol] 1 patch TRANSDERM DAILY #30 patch 03/23/24 [Rx] Pantoprazole [Protonix] 40 mg PO AC-BRKFST #14 tab 03/23/24 [Rx] Zinc Sulfate [Orazinc] 220 mg PO DAILY 15 Days #15 cap 03/23/24 [Rx] predniSONE See Taper PO DIRECTED 6 Days #12 tab 03/23/24 [Rx] Follow up Appointment(s)/Referral(s): [facility] [NON-STAFF] - 1 Week Sue Blackwell MD [STAFF PHYSICIAN] - 1 Week (In order for this doctor to see you call your insurance company and put her on as primary once that is done you can call to make an appointement for a hospital follow up appointment.) Activity/Diet/Wound Care/Special Instructions: Activity limited until follow-up Follow-up with primary care provider to establish Continue taking medication as prescribed Discharge/Stand Alone Forms: [facility] PCPs Discharge Disposition: HOME SELF-CARE
--- NOTE | 2024-03-24 13:04 | P.PN ---
Subjective Progress Note Date: 03/23/24 Principal diagnosis: Reason for follow-up is pneumonia Patient is a 18-year-old male current everyday smoker and previous history of pneumonia presenting to the hospital for evaluation of increasing shortness of breath patient has been diagnosed sepsis and pneumonia prompted this consultation. On today's evaluation that is 03/23/2024, Patient is afebrile this morning patient denies having any chest pain shortness of breath, the patient cough has decreased intensity still coughing up sputum no hemoptysis, the patient is breathing comfortably on room air, patient denies any abdominal pain no diarrhea no nausea no vomiting, patient mention feeling better wants to go home. No new lab has been obtained today repeat sputum culture has been negative Objective - Vital Signs Vital signs: Vital Signs Temp 99.7 F H 03/23/24 07:07 Pulse 110 H 03/23/24 07:45 Resp 16 03/23/24 07:07 BP 101/65 03/23/24 07:07 Pulse Ox 95 03/23/24 07:07 FiO2 21 03/17/24 07:57 Intake & Output 03/22/24 03/23/24 03/23/24 18:59 06:59 18:59 Intake Total 240 Balance 240 Intake: Oral 240 Other: Voiding Method Toilet # Voids 3 - Exam GENERAL DESCRIPTION: Young male lying in bed in no distress RESPIRATORY SYSTEM: Unlabored breathing , decreased breath sounds at bases HEART: S1 S2 regular rate and rhythm , ABDOMEN: Soft , no tenderness EXTREMITIES: No edema feet - Labs CBC & Chem 7: 03/22/24 03:52 03/22/24 03:52 Labs: Abnormal Lab Results - Last 24 Hours (Table) 03/22/24 03/22/24 Range/Units 03:52 03:52 WBC 10.42 H (4.50-10.00) X 10*3/uL RBC 3.93 L (4.40-5.60) X 10*6/uL Hgb 11.1 L (13.0-17.0) g/dL Hct 35.1 L (39.6-50.0) % MCHC 31.6 L (32.0-37.0) g/dL Immature Gran # 0.08 H (0.00-0.04) X 10*3/uL Monocytes # 1.14 H (0.20-1.00) X 10*3/uL IgG 1783.0 H (700.0-1600.0) mg/dL IgM 429.0 H (40.0-280.0) mg/dL IgE 199.00 H (0.00-114.00) IU/mL Microbiology - Last 24 Hours (Table) 03/17/24 13:29 Blood Culture - Final Blood Assessment and Plan (1) Sepsis Status: Acute Code(s): A41.9 - SEPSIS, UNSPECIFIED ORGANISM SNOMED Code(s): 78918069 (2) Pneumonia Status: Acute Code(s): J18.9 - PNEUMONIA, UNSPECIFIED ORGANISM SNOMED Code(s): 412331758 (3) Salmonella Status: Acute Code(s): A02.9 - SALMONELLA INFECTION, UNSPECIFIED SNOMED Code(s): 185466417 Plan: 1patient presented hospital with sepsis in this patient who did have fever tachycardia elevated white count source is left-sided pneumonia likely communit y-acquired patient did have significant diarrhea as well with a question of possible Legionella. 2urine for Legionella antigen came back negative, sputum for Gram stain culture and blood cultures are so far negative, stool cultures came back positive with Salmonella species 3patient did have a CT angiogram of the chest negative for PE did not show any effusion with evidence of multifocal pneumonia on the left side and with repeat CT shows worsening of the left-sided pneumonia but no evidence of any abscess or empyema. 4patient fever seem to have responded to addition of Levaquin which will be continued for 10 days on discharge and close outpatient follow-up discussed with the [facility] for admitting team working on discharge Dictation was produced using [employer] dictation software. please excuse any grammatical, word or spelling errors. Time with Patient: Less than 30
== END 2024-03-23 15:10 | disposition home or self-care (01) | DRG 720 ==
LOC: EC 11:20 → 4SSUR 13:51 → 5NMEDONC 17:48
PROVIDERS: ADMIT Internal Medicine; ATTEND Internal Medicine
DX: A41.50 Gram-negative sepsis, unspecified (principal); J15.7 Pneumonia due to Mycoplasma pneumoniae; F17.290 Nicotine dependence, other tobacco product, uncomplicated; A02.1 Salmonella sepsis; K52.1 Toxic gastroenteritis and colitis; I31.9 Disease of pericardium, unspecified; J15.69 Pneumonia due to other Gram-negative bacteria; R79.1 Abnormal coagulation profile; E83.51 Hypocalcemia; E86.0 Dehydration; E87.1 Hypo-osmolality and hyponatremia; F41.9 Anxiety disorder, unspecified; Z87.01 Personal history of pneumonia (recurrent); Z28.310 Unvaccinated for COVID-19; Z28.21 Immunization not carried out because of patient refusal; Z71.51 Drug abuse counseling and surveillance of drug abuser; Z79.899 Other long term (current) drug therapy
CPT/HCPCS: 36415; 71045; 71046; 71260; 71275; 80048; 80053; 80306; 81003; 82784; 82785; 83605; 83735; 84145; 85025; 85379; 85652; 86140; 86334; 86355; 86357; 86359; 86360; 86738; 87040; 87045; 87046; 87070; 87077; 87186; 87205; 87324; 87390; 87449; 87636; 93005; 93306; 94640; 94760; 96365; 96366; 96368; 96375; 99285